=== PATIENT | male | born 1935 | race Caucasian/White ===

== ENCOUNTER → 2017-01-02 | Outpatient (CLI) | payer OTHER, MEDICARE ==
[~2017-01-02] MED LIST: CHOL2000 PO; FERR1TAB62 PO; LEVO50TA6 PO; MULT-506 PO; PRT/20 PO; TYLER650 PO
[2017-01-02 17:20] LABS: BASO % 0.6 %; BASO ABS # 0.04 K/uL (0-0.2); COMPLETE YES; EOS % 7.4 %; HEMATOCRIT 40.9 % (42-52); IG% 0.3 %; LYMPH % 26.3 %; LYMPH ABS # 1.66 K/uL (1.2-3.4); MEAN CELL VOLUME 92.7 fL (80-100); MEAN CORPUSCULAR HGB CONC 34.5 g/dl (32-36); MEAN PLATELET VOLUME 10.9 fL (7.4-10.4); MONO % 10.4 %; PLATELET COUNT 218 K/uL (130-400); RED BLOOD COUNT 4.41 M/uL (4.7-6.1); WHITE BLOOD COUNT 6.32 K/uL (4.8-10.8)
[2017-01-02 17:41] LABS: CALCIUM 8.6 mg/dl (8.5-10.1)
[2017-01-02 17:45] LABS: BLOOD UREA NITROGEN 19 mg/dl (7-18); BUN/CREATININE RATIO 13.6 (10-20); CARBON DIOXIDE 27 mmol/L (21-32); CHLORIDE 106 mmol/L (98-107); GLUCOSE 98 mg/dl (70-99); POTASSIUM 4.2 mmol/L (3.5-5.1); SODIUM 142 mmol/L (136-145)
== END | disposition home or self-care (01) ==
LOC: C.LAB1850 15:26
PROVIDERS: ATTEND Internal Medicine
DX: M47.812 Spondylosis without myelopathy or radiculopathy, cervical region (principal)

== ENCOUNTER 2017-11-17 17:34 | Inpatient (IN) | payer OTHER, MEDICARE ==
[~2017-11-17] VITALS: Ht 182.9 cm; Wt 86.7 kg
[~2017-11-17 17:34] MED LIST changes: +SODIUM BICARBONATE 8.4% INJ 150 MEQ in DEXTROSE 5% 1000ML 1,000 ML IV ONE
--- NOTE | 2017-11-17 18:08 | DIAGNOSTIC IMAGING REPORT ---
CHEST ONE VIEW PORTABLE CLINICAL HISTORY: Weakness COMPARISON STUDY: January 2016 FINDINGS: The heart remains borderline enlarged. There are right lung calcified granulomas. There is a stable eggshell calcification the left paratracheal region. There is chronic lower lobe bronchovascular thickening most pronounced at the left lung base medially.[ There is no overt failure. There are no pleural effusions. IMPRESSION: No change from the preceding study. No acute findings. Electronically signed by: Walter Altamirano M.D. 11/17/2017 6:07 PM Dictated Date/Time: 11/17/2017 6:05 PM
[2017-11-17 18:48] LABS: BASO % 0.2 %; BASO ABS # 0.02 K/uL (0-0.2); EOS % 0.3 %; EOS ABS # 0.03 K/uL (0-0.5); HEMATOCRIT 43.8 % (42-52); HEMOGLOBIN 15.7 g/dL (14.0-18.0); IG# 0.04 K/uL (0.00-0.02); LYMPH % 10.3 %; LYMPH ABS # 1.03 K/uL (1.2-3.4); MEAN CELL VOLUME 90.3 fL (80-100); MEAN CORPUSCULAR HEMOGLOBIN 32.4 pg (25-34); MEAN CORPUSCULAR HGB CONC 35.8 g/dl (32-36); MEAN PLATELET VOLUME 10.6 fL (7.4-10.4); MONO % 10.3 %; MONO ABS # 1.03 K/uL (0.11-0.59); NEUT % 78.5 %; NEUT ABS # 7.89 K/uL (1.4-6.5); PLATELET COUNT 205 K/uL (130-400); RED CELL DISTRIBUTION WIDTH CV 13.2 % (11.5-14.5); RED CELL DISTRIBUTION WIDTH SD 43.2 fL (36.4-46.3); WHITE BLOOD COUNT 10.04 K/uL (4.8-10.8)
--- NOTE | 2017-11-17 18:52 | DIAGNOSTIC IMAGING REPORT ---
CT HEAD WITHOUT CONTRAST (CT) CLINICAL HISTORY: Acute change in mental status WEAKNESS COMPARISON STUDY: 02/11/2010 TECHNIQUE: Axial CT of the brain is performed from the vertex to the skull base. IV contrast was not administered for this examination. A dose lowering technique was utilized adhering to the principles of ALARA. CT DOSE: 1425.10 mGy.cm FINDINGS: No intra or extra-axial mass lesions are visualized. There is no CT evidence of acute cortical infarction. There is no evidence of midline shift. There is no acute hemorrhage. No calvarial fractures are visualized. There are patchy white matter hypodensities likely on a small vessel basis. There is no evidence of pathologic ventricular dilatation. There is no evidence of acute sinusitis IMPRESSION: No acute intracranial findings Electronically signed by: Walter Altamirano M.D. 11/17/2017 6:51 PM Dictated Date/Time: 11/17/2017 6:50 PM
[2017-11-17 19:06] LABS: ALBUMIN 3.8 gm/dl (3.4-5.0); ALT/SGPT 153 U/L (12-78); AST/SGOT 654 U/L (15-37); BLOOD UREA NITROGEN 20 mg/dl (7-18); CALCIUM 9.1 mg/dl (8.5-10.1); CARBON DIOXIDE 27 mmol/L (21-32); CREATININE 1.73 mg/dl (0.60-1.40); GLUCOSE 76 mg/dl (70-99); LIPASE 72 U/L (73-393); SODIUM 144 mmol/L (136-145)
[2017-11-17 19:08] LABS: PTT PATIENT 24.5 SECONDS (21.0-31.0)
[2017-11-17 19:39] LABS: ALKALINE PHOSPHATASE 98 U/L (45-117); CKMB 42.2 ng/ml (0.5-3.6)
[2017-11-17] MEDS ORDERED: SODIUM CHLORIDE 0.9% 1000ML 1,000 ML IV STA (20:00)
[2017-11-17] MEDS ORDERED: SODIUM CHLORIDE 0.9% 500ML 500 ML IV STA (20:00)
[2017-11-17] MEDS ORDERED: CEFTRIAXONE SOD INJ 1 GM ADDVIAL IV STA (20:04)
[2017-11-17] MEDS ORDERED: OMEP20CA9 PO (20:37)
[2017-11-17] MEDS ORDERED: PANTOprazole SOD 40 MG TAB PO PRN (21:15)
[2017-11-17] MEDS ORDERED: ACETAMINOPHEN PO PRN (21:15)
--- NOTE | 2017-11-17 22:41 | History and Physical ---
History & Physical Date & Time of Service: Nov 17, 2017 at 21:36 Chief Complaint: AMS Primary Care Physician: Arron Austin M.D. History of Present Illness Source: patient, family, hospital records 82 y/o M Hx Hypothyroidism, Colon CA 2007, CKD III, GERD. The [place] independent [place] He was visited by family today and it was noted that he was acutely confused and preparing to eat one of his houseplants. He was brought into the hospital therefore. He was afebrile on arrival to the ER. Labs however, were highly abnormal revealing a CK of 60,000 and mild renal impairment above baseline. A UA is equivocal and no additional source of infection is apparent. There is no indication that he had been on the ground for an appreciable period or suffered any muscle injury. He does walk daily and may have been walking more than usual owing to unseasonably warm weather. the pt himself is cooperative but does display some confusion and is unable to reliably contribute to the HPI. 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 Smoking Status: Never Smoker Drug Use: none Marital Status: Housing status: lives alone Occupational Status: retired Immunizations History of Influenza Vaccine: N/A History of Tetanus Vaccine?: Yes History of Pneumococcal: Yes History of Hepatitis B Vaccine: No Allergies Coded Allergies: No Known Allergies (Verified , 02/21/16) Home Medications Scheduled Cholecalciferol (Vitamin D3), 1 CAP PO QAM Ferrous Sulfate (Ferrous Sulfate), 325 MG PO BID Levothyroxine Sodium (Levothyroxine Sodium), 1 TAB PO QAM Multivitamin (Multivitamin), 1 TAB PO QAM Scheduled PRN Acetaminophen (Tylenol Arthitis Ext Rel), 2 TAB PO BID PRN for Pain Omeprazole (Prilosec), 20 MG PO BID PRN for REFLUX Review of Systems Cannot obtain from pt who was found confused by family Physical Exam Vital Signs Date Time Temp Pulse Resp B/P (MAP) Pulse Ox O2 Delivery O2 Flow Rate FiO2 11/17/17 20:07 59 20 160/67 97 Room Air 11/17/17 18:21 61 11/17/17 17:47 94 Room Air 11/17/17 17:42 36.6 66 22 145/79 94 Room Air General Appearance: + pertinent finding (Pleasant, elderly male - mild confusion) Head: normocephalic Eyes: normal inspection ENT: normal ENT inspection, pharynx normal Neck: supple, no JVD Respiratory/Chest: chest non-tender, lungs clear, normal breath sounds Cardiovascular: regular rate, rhythm, no edema, no gallop Abdomen/GI: normal bowel sounds, non tender, soft Back: normal inspection, no CVA tenderness Extremities/Musculoskelatal: normal inspection, no calf tenderness, normal capillary refill Neurologic/Psych: cold header II-XII nml as tested, no motor/sensory deficits, alert, + pertinent finding (Oriented x 1-2) Skin: normal color Diagnostics Laboratory Results Results Past 24 Hours Test 11/17/17 17:42 11/17/17 18:25 11/17/17 18:40 11/17/17 21:31 Range/Units Creatine Kinase MB Ratio 0-3.0 White Blood Count 10.04 4.8-10.8 K/uL Red Blood Count 4.85 4.7-6.1 M/uL Hemoglobin 15.7 14.0-18.0 g/dL Hematocrit 43.8 42-52 % Mean Corpuscular Volume 90.3 80-100 fL Mean Corpuscular Hemoglobin 32.4 25-34 pg Mean Corpuscular Hemoglobin Concent 35.8 32-36 g/dl Platelet Count 205 130-400 K/uL Mean Platelet Volume 10.6 7.4-10.4 fL Neutrophils (%) (Auto) 78.5 % Lymphocytes (%) (Auto) 10.3 % Monocytes (%) (Auto) 10.3 % Eosinophils (%) (Auto) 0.3 % Basophils (%) (Auto) 0.2 % Neutrophils # (Auto) 7.89 1.4-6.5 K/uL Lymphocytes # (Auto) 1.03 1.2-3.4 K/uL Monocytes # (Auto) 1.03 0.11-0.59 K/uL Eosinophils # (Auto) 0.03 0-0.5 K/uL Basophils # (Auto) 0.02 0-0.2 K/uL RDW Standard Deviation 43.2 36.4-46.3 fL RDW Coefficient of Variation 13.2 11.5-14.5 % Immature Granulocyte % (Auto) 0.4 % Immature Granulocyte # (Auto) 0.04 0.00-0.02 K/uL Prothrombin Time 10.6 9.0-12.0 SECONDS Prothromb Time International Ratio 1.0 0.9-1.1 Activated Partial Thromboplast Time 24.5 21.0-31.0 SECONDS Partial Thromboplastin Ratio 0.9 Sodium Level 144 136-145 mmol/L Potassium Level 4.0 3.5-5.1 mmol/L Chloride Level 111 98-107 mmol/L Carbon Dioxide Level 27 21-32 mmol/L Anion Gap 6.0 3-11 mmol/L Blood Urea Nitrogen 20 7-18 mg/dl Creatinine 1.73 0.60-1.40 mg/dl Est Creatinine Clear Calc Drug Dose 34.9 ml/min Estimated GFR () 41.1 Estimated GFR (Non- 35.5 BUN/Creatinine Ratio 11.4 10-20 Random Glucose 76 70-99 mg/dl Calcium Level 9.1 8.5-10.1 mg/dl Magnesium Level 2.2 1.8-2.4 mg/dl Total Bilirubin 1.0 0.2-1 mg/dl Direct Bilirubin 0.2 0-0.2 mg/dl Aspartate Amino Transf (AST/SGOT) 654 15-37 U/L Alanine Aminotransferase (ALT/SGPT) 153 12-78 U/L Alkaline Phosphatase 98 45-117 U/L Total Creatine Kinase 64024 39-308 U/L Creatine Kinase MB 42.2 0.5-3.6 ng/ml Troponin I 0.097 0-0.045 ng/ml Total Protein 7.0 6.4-8.2 gm/dl Albumin 3.8 3.4-5.0 gm/dl Lipase 72 73-393 U/L Thyroid Stimulating Hormone (TSH) 4.970 0.300-4.500 uIu/ml Urine Color DK YELLOW Urine Appearance TURBID CLEAR Urine pH 5.5 4.5-7.5 Urine Specific [place] 1.020 1.000-1.030 Urine Protein 2+ NEG Urine Glucose (UA) NEG NEG Urine Ketones NEG NEG Urine Occult Blood 3+ NEG Urine Nitrite NEG NEG Urine Bilirubin NEG NEG Urine Urobilinogen NEG NEG Urine Leukocyte Esterase SMALL NEG Urine RBC (Auto) 0-4 /hpf Urine Hyaline Casts (Auto) 0-5 /lpf Urine RBC 0-4 0-4 /hpf Urine WBC 1-5 0-5 /hpf Urine Epithelial Cells 0-5 0-5 /lpf Urine Amorphous Sediment PRESENT NONE PRSENT Urine Bacteria 1+ NEG Urine Granular Casts 5-10 0 /lpf Urine Pathogenic Casts 0 /lpf Urine Yeast (Auto) NONE PRSENT Microbiology Results 11/17/17 Urine Culture, Received Pending Normal EKG Impression Assessment and Plan 82 y/o M Hx Hypothyroidism, Colon CA 2007, CKD III, GERD. The [place] is independent [place] He was visited by family today and it was noted that he was acutely confused and preparing to eat one of his houseplants. He was brought into the hospital therefore. He was afebrile on arrival to the ER. Labs however, were highly abnormal revealing a CK of 60,000 and mild renal impairment above baseline. A UA is equivocal and no additional source of infection is apparent. There is no indication that he had been on the ground for an appreciable period or suffered any muscle injury. He does walk daily and may have been walking more than usual owing to unseasonably warm weather. The pt himself is cooperative but does display some confusion and is unable to reliably contribute to the HPI. 1) Rhabdomyolysis - severe - Likely nontraumatic exertional and possibly owing to susceptibility from hypothyroidism - pt is receiving aggressive IVF. Pending additional labs we may opt to alkalinize although the benefit is not entirely clear. Electrolytes and CK will be trended. We will consult nephrology if there is any worsening in his renal function. 2) ARETHA - CKD III - renal impairment is above baseline presently - this may be due to mild dehydration although we cannot rule out an early effect from rhabdo. Again, we would choose to consult nephrology if there is worsening. 3) Borderline UA - no clear evidence of infection - he received Ceftriaxone in the ER - we will await culture results and a repeat UA prior to proceeding with additional dosing. 4) Mild confusion - cause is not clear - may be due to dehydration or UTI if confirmed - not normally associated with rhabdo. Reevaluate AM following IVF. 5) Hypothyroidism - TSH is slightly elevated - dose adjustment can be made if abnormality persists after resolution of acute illness - does not require immediate attention. Full code - Heparin prophylaxis Total time for this admit including review of labs, meds, imaging, records - discussion with pt, family, ER attending - 45 min Resuscitation Status VTE Prophylaxis Will order VTE Prophylaxis: Yes
[2017-11-17] MEDS ORDERED: ONDANSETRON INJ 2 MG/ML 2 ML VIAL IV PRN (22:45)
[2017-11-17] MEDS ORDERED: ACETAMINOPHEN 325 MG TAB PO PRN (22:45)
[2017-11-17] MEDS ORDERED: ALUMINUM/MAGNESIUM/SIMETH (MAALOX MAX) 30 ML UDC PO PRN (22:45)
[2017-11-17] MEDS ORDERED: MAGNESIUM HYDROXIDE SUSP 30 ML UDC PO PRN (22:45)
--- NOTE | 2017-11-17 23:04 | EMERGENCY ROOM VISIT NOTE ---
History Report prepared by Betzy: Ofelia Ferrell Under the Supervision of: Dr. Panfilo Sexton M.D. First contact with patient: 17:41 Chief Complaint: ALTERED MENTAL STATUS Stated Complaint: AMS Nursing Triage Summary: Pt arrived to room C12A via ambulance from [facility]. Pt lives alone and was found by home nurse attempting to eat a plant with a fork and was seeing mice running around in the bathroom. 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 Pt also incontinent of bladder. Per EMS , pt usually walks around town, but has had increased weakness and could barely get on the stretcher. BSG 79. At baseline, pt alert and oriented x4. History of Present Illness The patient is a 82 year old male who presents to the Emergency Room with complaints of an episode of altered mental status occurring this afternoon. Per nursing note, the patient was found by home nursing staff confused and altered. Per nursing note, the patient was trying to eat a plant and said he was seeing mice run around his house. Per daughter, the last time she saw the patient was and she reports he was at his baseline then. She reports the patient is very independent at baseline. The patient lives alone. Per daughter, the patient has not been recently ill or complaining of any pain over the past couple days. The patient states he feels more fatigued and weak than his baseline. He reports he feels dizzy when he moves. The patient denies any recent falls. He denies any abdominal pain. Daughter denies any recent pneumonia , vertigo, or UTIs of the patient. When EMS arrived, the patient he was incontinent of urine which is not normal for him. The patient has a history of colon cancer with resection. History limited secondary to AMS. Source of History: patient History Limited By: AMS Onset: this afternoon Position: other (generalized) Quality: other (episode) Timing: other (episode) Associated Symptoms: + fatigue, + numbness, No abdominal pain Review of Systems ROS limited secondary to AMS. Past Medical & Surgical Medical Problems: (1) Colon cancer (2) Diaphragmatic hernia (3) Esophagitis, unspecified (4) Osteoporosis, unspecified (5) Rhabdomyolysis Family History Cancer Social History Smoking Status: Never Smoker Alcohol Use: occasionally Drug Use: none Marital Status: Housing Status: lives alone Occupation Status: retired Current/Historical Medications Scheduled Cholecalciferol (Vitamin D3), 1 CAP PO QAM Ferrous Sulfate (Ferrous Sulfate), 325 MG PO BID Levothyroxine Sodium (Levothyroxine Sodium), 1 TAB PO QAM Multivitamin (Multivitamin), 1 TAB PO QAM Scheduled PRN Acetaminophen (Tylenol Arthitis Ext Rel), 2 TAB PO BID PRN for Pain Omeprazole (Prilosec), 20 MG PO BID PRN for REFLUX Allergies Coded Allergies: No Known Allergies (Verified , 02/21/16) Physical Exam Vital Signs Date Time Temp Pulse Resp B/P (MAP) Pulse Ox O2 Delivery O2 Flow Rate FiO2 11/17/17 22:47 78 20 171/77 96 Room Air 11/17/17 22:22 56 11/17/17 21:06 37.7 61 20 132/65 99 Room Air 11/17/17 20:07 59 20 160/67 97 Room Air 11/17/17 18:21 61 11/17/17 17:47 94 Room Air 11/17/17 17:42 36.6 66 22 145/79 94 Room Air Physical Exam GENERAL: Awake, alert, well-appearing, in no distress HENT: Normocephalic, atraumatic. Oropharynx unremarkable. EYES: Normal conjunctiva. Sclera non-icteric. NECK: Supple. No nuchal rigidity. FROM. No masses. RESPIRATORY: Clear to auscultation. No wheezes. No rales. Normal respiratory effort. CARDIAC: Normal rate. Normal rhythm. No murmurs. No rubs. Extremities warm and well perfused. Pulses equal. No JVD. GI: Soft, non-distended. No tenderness to palpation. No rebound or guarding. No masses. RECTAL: Deferred. MUSCULOSKELETAL: Atraumatic. Chest examination reveals no tenderness. The back is symmetrical on inspection without obvious abnormality. There is no CVA tenderness to palpation. No joint edema. LOWER EXTREMITIES: Calves are equal size bilaterally and non-tender. No edema. No discoloration. NEURO: Normal sensorium. Generally weak, no drift, speech not slurred but soft. No sensory or motor deficits noted. SKIN: No rash or jaundice noted. Medical Decision & Procedures ER Provider Diagnostic Interpretation: Radiology results as stated below per my review and radiologist interpretation: CHEST ONE VIEW PORTABLE FINDINGS: The heart remains borderline enlarged. There are right lung calcified granulomas. There is a stable eggshell calcification the left paratracheal region. There is chronic lower lobe bronchovascular thickening most pronounced at the left lung base medially.[ There is no overt failure. There are no pleural effusions. IMPRESSION: No change from the preceding study. No acute findings. Electronically signed by: Walter Altamirano M.D. CT HEAD WITHOUT CONTRAST (CT) FINDINGS: No intra or extra-axial mass lesions are visualized. There is no CT evidence of acute cortical infarction. There is no evidence of midline shift. There is no acute hemorrhage. No calvarial fractures are visualized. There are patchy white matter hypodensities likely on a small vessel basis. There is no evidence of pathologic ventricular dilatation. There is no evidence of acute sinusitis IMPRESSION: No acute intracranial findings Electronically signed by: Walter Altamirano M.D. Laboratory Results 11/17/17 18:25 Red Blood Count 4.85, Mean Corpuscular Volume 90.3, Mean Corpuscular Hemoglobin 32.4, Mean Corpuscular Hemoglobin Concent 35.8, Mean Platelet Volume 10.6, Neutrophils (%) (Auto) 78.5, Lymphocytes (%) (Auto) 10.3, Monocytes (%) (Auto) 10.3, Eosinophils (%) (Auto) 0.3, Basophils (%) (Auto) 0.2, Neutrophils # (Auto ) 7.89, Lymphocytes # (Auto) 1.03, Monocytes # (Auto) 1.03, Eosinophils # (Auto ) 0.03, Basophils # (Auto) 0.02 Test 11/17/17 17:42 11/17/17 18:25 11/17/17 18:40 11/17/17 22:42 Creatine Kinase MB Ratio (0-3.0) White Blood Count 10.04 K/uL (4.8-10.8) Red Blood Count 4.85 M/uL (4.7-6.1) Hemoglobin 15.7 g/dL (14.0-18.0) Hematocrit 43.8 % (42-52) Mean Corpuscular Volume 90.3 fL (80-100) Mean Corpuscular Hemoglobin 32.4 pg (25-34) Mean Corpuscular Hemoglobin Concent 35.8 g/dl (32-36) Platelet Count 205 K/uL (130-400) Mean Platelet Volume 10.6 fL (7.4-10.4) Neutrophils (%) (Auto) 78.5 % Lymphocytes (%) (Auto) 10.3 % Monocytes (%) (Auto) 10.3 % Eosinophils (%) (Auto) 0.3 % Basophils (%) (Auto) 0.2 % Neutrophils # (Auto) 7.89 K/uL (1.4-6.5) Lymphocytes # (Auto) 1.03 K/uL (1.2-3.4) Monocytes # (Auto) 1.03 K/uL (0.11-0.59) Eosinophils # (Auto) 0.03 K/uL (0-0.5) Basophils # (Auto) 0.02 K/uL (0-0.2) RDW Standard Deviation 43.2 fL (36.4-46.3) RDW Coefficient of Variation 13.2 % (11.5-14.5) Immature Granulocyte % (Auto) 0.4 % Immature Granulocyte # (Auto) 0.04 K/uL (0.00-0.02) Prothrombin Time 10.6 SECONDS (9.0-12.0) Prothromb Time International Ratio 1.0 (0.9-1.1) Activated Partial Thromboplast Time 24.5 SECONDS (21.0-31.0) Partial Thromboplastin Ratio 0.9 Est Creatinine Clear Calc Drug Dose 34.9 ml/min Total Bilirubin 1.0 mg/dl (0.2-1) Direct Bilirubin 0.2 mg/dl (0-0.2) Aspartate Amino Transf (AST/SGOT) 654 U/L (15-37) Alanine Aminotransferase (ALT/SGPT) 153 U/L (12-78) Alkaline Phosphatase 98 U/L (45-117) Creatine Kinase MB 42.2 ng/ml (0.5-3.6) Troponin I 0.097 ng/ml (0-0.045) Total Protein 7.0 gm/dl (6.4-8.2) Albumin 3.8 gm/dl (3.4-5.0) Lipase 72 U/L (73-393) Thyroid Stimulating Hormone (TSH) 4.970 uIu/ml (0.300-4.500) Urine Color DK YELLOW Urine Appearance TURBID (CLEAR) Urine pH 5.5 (4.5-7.5) Urine Specific [place] 1.020 (1.000-1.030) Urine Protein 2+ (NEG) Urine Glucose (UA) NEG (NEG) Urine Ketones NEG (NEG) Urine Occult Blood 3+ (NEG) Urine Nitrite NEG (NEG) Urine Bilirubin NEG (NEG) Urine Urobilinogen NEG (NEG) Urine Leukocyte Esterase SMALL (NEG) Urine RBC (Auto) /hpf (0-4) Urine Hyaline Casts (Auto) /lpf (0-5) Urine RBC 0-4 /hpf (0-4) Urine WBC 1-5 /hpf (0-5) Urine Epithelial Cells 0-5 /lpf (0-5) Urine Amorphous Sediment PRESENT (NONE PRSENT) Urine Bacteria 1+ (NEG) Urine Granular Casts 5-10 /lpf (0) Urine Pathogenic Casts /lpf (0) Urine Yeast (Auto) (NONE PRSENT) Test 11/17/17 22:43 Laboratory results reviewed by me Medications Administered Medications (Trade) Dose Ordered Sig/Diana Route Start Time Stop Time Status Last Admin Dose Admin Sodium Chloride 500 ml @ 999 mls/hr Q31M STAT IV 11/17/17 20:00 11/17/17 20:30 DC 11/17/17 20:00 999 MLS/HR Sodium Chloride 1,000 ml @ 125 mls/hr Q8H STAT IV 11/17/17 20:00 11/18/17 03:59 11/17/17 20:00 125 MLS/HR Ceftriaxone Sodium (Rocephin Inj) 1 gm NOW STAT IV 11/17/17 20:04 11/17/17 20:05 DC 11/17/17 20:04 1 GM ECG Per My Interpretation Indication: altered mental status Rate (beats per minute): 60 Rhythm: normal sinus Findings: no ectopy, other (lateral T- wave flattening, prolonged QT ) Comparison ECG Date: 02/21/16 Change: Lateral changes are more pronounced. ED Course 1800: The patient was evaluated in room C12A. A complete history and physical exam was performed. 2000: Ordered Sodium Chloride 1000 ml @ 125 mls/hr IV, Sodium Chloride 500 ml @ 999 mls/hr IV. 2001: Discussed the patient's case Dr. Moy. The patient will be evaluated for further treatment and disposition. 2004: Ordered Rocephin Inj 1 gm IV. 2007: I updated the patient and family on his test results. They are agreeable to the treatment plan. Medical Decision Prior records/ancillary studies reviewed and summarized above. Nursing notes reviewed and agree them. Additional history obtained from family. The patient's history was concerning for altered mental status. Differential diagnosis: Etiologies such as infection, hypoglycemia, electrolyte abnormalities, cardiac sources, intracerebral event, toxicologic, neurologic, as well as others were entertained. Physical examination: As above. The patient's GCS was 15. His mental status was relatively normal although there was some confusion. He does not recall some of the events from earlier which limits the accuracy of the history and review. His examination is currently nonfocal. ER treatment provided: IV Lock Normal saline hydration IV Rocephin On reassessment the patient felt better. Diagnostics interpretation by me: ECG: Mild changes as above. The labs revealed an unremarkable CBC. Urinalysis concerning for some infection. LFTs elevated. Total CK markedly elevated consistent with rhabdomyolysis. Minor elevation of creatinine. Troponin mildly elevated. Imaging studies: CT scan and x-ray as above. Consultation: A consultation was placed with the hospitalist. The case was discussed and diagnostics were reviewed. The patient was evaluated in the ER for further treatment. Medication Reconcilliation Current Medication List: was personally reviewed by me Blood Pressure Screening Patient's blood pressure: Elevated blood pressure Blood pressure disposition: Referred to PCP (referred to hospitalist) Consults Time Called: 2000 Consulting Physician: Dr. Echols Returned Call: 2000 Discussed the patient's case Dr. Echols. The patient will be evaluated for further treatment and disposition. Impression Primary Impression: Altered mental status Additional Impressions: Elevated troponin UTI (urinary tract infection) Rhabdomyolysis Elevated LFTs Scribe Attestation The scribe's documentation has been prepared under my direction and personally reviewed by me in its entirety. I confirm that the note above accurately reflects all work, treatment, procedures, and medical decision making performed by me. Departure Information Dispostion Being Evaluated By Hospitalist Referrals Arron Austin M.D. (PCP) Patient Instructions My [facility] Problem Qualifiers
[2017-11-17 23:12] LABS: CALCIUM 8.2 mg/dl (8.5-10.1); CREATININE 1.61 mg/dl (0.60-1.40); POTASSIUM 3.8 mmol/L (3.5-5.1)
[2017-11-17 23:41] LABS: PHOSPHORUS 3.2 mg/dl (2.5-4.9)
[2017-11-18 00:13] VITALS: BP 152/78; PULSE 58; TEMP 36.7; O2SAT 95; Ht 182.9 cm; Wt 86.7 kg
[2017-11-18 04:42] LABS: CALCIUM 8.5 mg/dl (8.5-10.1); CREATININE 1.7 mg/dl (0.60-1.40); POTASSIUM 3.6 mmol/L (3.5-5.1)
[2017-11-18 05:08] LABS: PHOSPHORUS 3.1 mg/dl (2.5-4.9)
[2017-11-18] MEDS: HEPARIN SOD 5000 UNIT/0.5 ML CARP SQ SCH ×3 (05:27→20:04)
[2017-11-18] MEDS: LEVOTHYROXINE 50 MCG TAB PO SCH (05:28)
[2017-11-18 07:23] VITALS: BP 148/75; PULSE 59; TEMP 36.6; O2SAT 93
[2017-11-18] MEDS: SODIUM CHLORIDE 0.9% 1000ML 1,000 ML IV SCH ×4 (07:30→20:05)
[2017-11-18] MEDS ORDERED: NURSING VERBAL MED ORDER ONE (10:30)
[2017-11-18 13:00] LABS: CALCIUM 8.3 mg/dl (8.5-10.1); CREATININE 1.74 mg/dl (0.60-1.40); POTASSIUM 3.6 mmol/L (3.5-5.1)
[2017-11-18 13:01] LABS: PHOSPHORUS 2.7 mg/dl (2.5-4.9)
--- NOTE | 2017-11-18 13:04 | Hospitalist Progress Note ---
Hospitalist Progress Note Date of Service Nov 18, 2017. Subjective Pt evaluation today including: conversation w/ patient, physical exam, lab review, review of studies, review of inpatient medication list Voiding: no voiding problems Patient sitting in bedside. Feeling well. Alert/oriented x3. States he was brought to the ED because he was confused. Denies any recent falls, injuries, increase in activity. Does walk around 3 miles most days- doing for years now. 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 Eating and drinking OK. Denies urinary issues- urine dark brown in color. Patient denies any fever, chills, sweats, lightheadedness, dizziness, vision changes, CP, palpitations, edema, SOB, wheezing, cough, abdominal pain, nausea, vomiting, diarrhea, urinary symptoms, melena, numbness/tingling, weakness, muscle/joint pain, anxiety/depression, active bleeding, or new skin discoloration/changes. Medications Current Inpatient Medications Medications (Trade) Dose Ordered Sig/Diana Route Start Time Stop Time Status Last Admin Dose Admin Sodium Chloride 1,000 ml @ 200 mls/hr Q5H IV 11/18/17 05:00 11/18/17 22:29 11/18/17 12:37 200 MLS/HR Levothyroxine Sodium (Synthroid Tab) 50 mcg DAILYBB PO 11/18/17 06:30 12/18/17 06:29 11/18/17 05:28 50 MCG Pantoprazole Sodium (Protonix Tab) 40 mg BID PRN PO 11/17/17 21:15 12/17/17 21:14 Heparin Sodium (Porcine) (Heparin Sq 5000 Unit/0.5ml) 5,000 unit Q8H SQ 11/18/17 06:00 12/18/17 05:59 11/18/17 05:27 5,000 UNIT Acetaminophen (Tylenol Tab) 650 mg Q4H PRN PO 11/17/17 22:45 12/17/17 22:44 Al Hydrox/Mg Hydrox/Simethicone (Maalox Max Susp) 15 ml Q4H PRN PO 11/17/17 22:45 12/17/17 22:44 Magnesium Hydroxide (Milk Of Magnesia Susp) 30 ml Q6H PRN PO 4/24/18 22:45 12/17/17 22:44 Ondansetron HCl (Zofran Inj) 4 mg Q6H PRN IV 11/17/17 22:45 12/17/17 22:44 Objective Vital Signs Date Time Temp Pulse Resp B/P (MAP) Pulse Ox O2 Delivery O2 Flow Rate FiO2 11/18/17 07:25 Room Air 11/18/17 07:23 36.6 59 20 148/75 (99) 93 Room Air 11/18/17 00:13 36.7 58 20 152/78 (102) 95 Room Air 11/18/17 00:13 36.7 58 20 152/78 95 Room Air 11/18/17 00:00 Room Air 11/17/17 23:50 64 18 154/74 98 11/17/17 22:47 78 20 171/77 96 Room Air 11/17/17 22:22 56 11/17/17 21:06 37.7 61 20 132/65 99 Room Air 11/17/17 20:07 59 20 160/67 97 Room Air 11/17/17 18:21 61 11/17/17 17:47 94 Room Air 11/17/17 17:42 36.6 66 22 145/79 94 Room Air Physical Exam General Appearance: no apparent distress Eyes: normal inspection, PERRL ENT: hearing grossly normal Neck: supple Respiratory/Chest: lungs clear, no respiratory distress, no accessory muscle use Cardiovascular: regular rate, rhythm Abdomen: normal bowel sounds, non tender, soft Extremities: no pedal edema, no calf tenderness Neurologic/Psychiatric: no motor/sensory deficits, alert, normal mood/affect, oriented x 3 Skin: normal color, warm/dry, no rash Laboratory Results Last 24 Hours Test 11/17/17 17:42 11/17/17 18:25 11/17/17 18:40 11/17/17 22:42 Creatine Kinase MB Ratio White Blood Count 10.04 K/uL Red Blood Count 4.85 M/uL Hemoglobin 15.7 g/dL Hematocrit 43.8 % Mean Corpuscular Volume 90.3 fL Mean Corpuscular Hemoglobin 32.4 pg Mean Corpuscular Hemoglobin Concent 35.8 g/dl Platelet Count 205 K/uL Mean Platelet Volume 10.6 fL Neutrophils (%) (Auto) 78.5 % Lymphocytes (%) (Auto) 10.3 % Monocytes (%) (Auto) 10.3 % Eosinophils (%) (Auto) 0.3 % Basophils (%) (Auto) 0.2 % Neutrophils # (Auto) 7.89 K/uL Lymphocytes # (Auto) 1.03 K/uL Monocytes # (Auto) 1.03 K/uL Eosinophils # (Auto) 0.03 K/uL Basophils # (Auto) 0.02 K/uL RDW Standard Deviation 43.2 fL RDW Coefficient of Variation 13.2 % Immature Granulocyte % (Auto) 0.4 % Immature Granulocyte # (Auto) 0.04 K/uL Prothrombin Time 10.6 SECONDS Prothromb Time International Ratio 1.0 Activated Partial Thromboplast Time 24.5 SECONDS Partial Thromboplastin Ratio 0.9 Sodium Level 144 mmol/L 144 mmol/L Potassium Level 4.0 mmol/L 3.8 mmol/L Chloride Level 111 mmol/L 114 mmol/L Carbon Dioxide Level 27 mmol/L 25 mmol/L Anion Gap 6.0 mmol/L 5.0 mmol/L Blood Urea Nitrogen 20 mg/dl 22 mg/dl Creatinine 1.73 mg/dl 1.61 mg/dl Est Creatinine Clear Calc Drug Dose 34.9 ml/min 37.5 ml/min Estimated GFR () 41.1 44.8 Estimated GFR (Non- 35.5 38.7 BUN/Creatinine Ratio 11.4 13.5 Random Glucose 76 mg/dl 70 mg/dl Calcium Level 9.1 mg/dl 8.2 mg/dl Magnesium Level 2.2 mg/dl 1.9 mg/dl Total Bilirubin 1.0 mg/dl Direct Bilirubin 0.2 mg/dl Aspartate Amino Transf (AST/SGOT) 654 U/L Alanine Aminotransferase (ALT/SGPT) 153 U/L Alkaline Phosphatase 98 U/L Total Creatine Kinase 84717 U/L 79589 U/L Creatine Kinase MB 42.2 ng/ml Troponin I 0.097 ng/ml Total Protein 7.0 gm/dl Albumin 3.8 gm/dl Lipase 72 U/L Thyroid Stimulating Hormone (TSH) 4.970 uIu/ml Urine Color DK YELLOW Urine Appearance TURBID Urine pH 5.5 Urine Specific [place] 1.020 Urine Protein 2+ Urine Glucose (UA) NEG Urine Ketones NEG Urine Occult Blood 3+ Urine Nitrite NEG Urine Bilirubin NEG Urine Urobilinogen NEG Urine Leukocyte Esterase SMALL Urine RBC (Auto) /hpf Urine Hyaline Casts (Auto) /lpf Urine RBC 0-4 /hpf Urine WBC 1-5 /hpf Urine Epithelial Cells 0-5 /lpf Urine Amorphous Sediment PRESENT Urine Bacteria 1+ Urine Granular Casts 5-10 /lpf Urine Pathogenic Casts /lpf Urine Yeast (Auto) Phosphorus Level 3.2 mg/dl Test 11/17/17 22:43 11/18/17 02:40 11/18/17 03:57 11/18/17 06:11 Arterial Blood pH 7.49 7.49 Arterial Blood Partial Pressure CO2 29 mmHg 37 mmHg Arterial Blood Partial Pressure O2 69 mm/Hg 61 mm/Hg Arterial Blood HCO3 21 mmol/L 27 mmol/L Arterial Blood Oxygen Saturation 94.2 % 91.4 % Arterial Blood Base Excess -0.9 mEq/L 3.9 mEq/L Arterial Blood Gas Delivery ROOM AIR RA Dave Test POS POS Urine Color DK YELLOW Urine Appearance CLOUDY Urine pH 5.5 Urine Specific [place] 1.019 Urine Protein 2+ Urine Glucose (UA) NEG Urine Ketones NEG Urine Occult Blood 3+ Urine Nitrite NEG Urine Bilirubin NEG Urine Urobilinogen NEG Urine Leukocyte Esterase TRACE Urine WBC (Auto) 1-5 /hpf Urine RBC (Auto) 0-4 /hpf Urine Hyaline Casts (Auto) 1-5 /lpf Urine Epithelial Cells (Auto) 5-10 /lpf Urine Bacteria (Auto) NEG Urine Yeast (Auto) Sodium Level 144 mmol/L Potassium Level 3.6 mmol/L Chloride Level 111 mmol/L Carbon Dioxide Level 29 mmol/L Anion Gap 4.0 mmol/L Blood Urea Nitrogen 24 mg/dl Creatinine 1.70 mg/dl Est Creatinine Clear Calc Drug Dose 35.5 ml/min Estimated GFR () 42.0 Estimated GFR (Non- 36.2 BUN/Creatinine Ratio 13.9 Random Glucose 85 mg/dl Calcium Level 8.5 mg/dl Phosphorus Level 3.1 mg/dl Magnesium Level 2.1 mg/dl Total Creatine Kinase 31898 U/L Test 11/18/17 09:15 11/18/17 12:20 Troponin I 0.089 ng/ml Assessment and Plan 82 y/o M Hx Hypothyroidism, Colon CA 2007, CKD III, GERD. The pt is independent and resides by himself in the [facility] area. He was visited by family today and it was noted that he was acutely confused and preparing to eat one of his houseplants. He was brought into the hospital therefore. He was afebrile on arrival to the ER. Labs however, were highly abnormal revealing a CK of 60,000 and mild renal impairment above baseline. A UA is equivocal and no additional source of infection is apparent. There is no indication that he had been on the ground for an appreciable period or suffered any muscle injury. He does walk daily and may have been walking more than usual owing to unseasonably warm weather. The pt himself is cooperative but does display some confusion and is unable to reliably contribute to the HPI. Rhabdomyolysis- etiology unknown: - Admitted to med/surg - Cardiac enzymes- troponin peaked at 0.09 - Aggressive IV NSS @ 200 ml/hr x3 bags, then IV NSS @ 100 ml/hr - Treated w/ 150 mEq sodium bicarbonate - Follow CRP- 60,000 on admission- trending down, now at 44,000 ARETHA on CKD stage III- follows w/ Dr. Austin- baseline plate sensitizer 1.4: - Follow PRP- plate sensitizer currently 1.74 - IVF as above - UA abnormal- UCx w/ mixed growth, repeat recommended- will repeat UCx; did receive IV Rocephin x1 dose on 11/17- will hold on further abx at this time - Avoid nephrotoxic agents and renally dose as appropriate - Consider nephrology consultation if plate sensitizer worsening Mild confusion, ?secondary to dehydration vs infection vs ?underlying cognitive dysfunction- RESOLVED: - Head CT negative for acute findings - No clear s/s of infection- repeating UCx, CXR w/out acute findings - Supportive measures, continue to monitor Hypothyroidism- TSH 4.97: - Continue Synthroid 50 mcg daily - f/u w/ PCP- recommend repeat in 4-6 weeks h/o colon cancer- noted GERD: Protonix while inpatient- resume Prilosec at discharge DVT prophylaxis: Heparin SQ TID Code status: LEVEL I, FULL Dispo: From home, lives alone- PT/OT and CM consulted
[2017-11-18 15:00] VITALS: BP 126/72; PULSE 64; TEMP 37; O2SAT 95
[2017-11-18 16:09] VITALS: O2SAT 95
[2017-11-18 23:07] VITALS: BP 145/71; PULSE 65; TEMP 36.8; O2SAT 95
[2017-11-19] MEDS: LEVOTHYROXINE 50 MCG TAB PO SCH (05:59)
[2017-11-19] MEDS: HEPARIN SOD 5000 UNIT/0.5 ML CARP SQ SCH ×3 (06:00→21:03)
--- NOTE | 2017-11-19 06:04 | Clinical Documentation Query ---
CLINICAL DOCUMENTATION QUERY 82 year old male who presents to the Emergency Room with complaints of an episode of altered mental status In your clinical opinion is this patient being managed for: ( X ) Metabolic encephalopathy treated and resolved due to alkalosis, dehydration, rhabdomyolysis ( ) Not Agree ( ) Other explanation of clinical findings (Please Explain. If no explanation given, this would be considered a no response.) ( ) Unable to determine ( ) Need to Discuss (Please call CDS via extension or qliq. If no interaction occurs this is considered a no response.) The medical record reflects the following clinical findings, treatment, and risk factors. Clinical Indicators: AMS, per [facility] at [facility] patient was found confused and altered. Per nursing note, the patient was trying to eat a plant and said he was seeing mice run around his house. Respiratory alkalosis-ABG 7.49/29/69/21, +Troponin's 0.097, 0.089, [place] [address], BUN 20. Creatinine 1.73, GFR 35.5. Treatment: Head CT, IVF's, IV Bicarb gtt, Risk Factors: Age, dehydration, rhabdomyolysis, alkalosis Please clarify and document your clinical opinion in the progress notes and discharge summary. Terms such as "probable", "suspected", "likely", "questionable", "possible", or "still to be ruled out" are acceptable. IF IN AGREEMENT, YOU MUST DOCUMENT ABOVE DIAGNOSTIC STATEMENT IN DAILY PROGRESS NOTES AND DISCHARGE SUMMARY. This document is not part of the patient's record. Thank You, Ronnell Camp RN [phone]
--- NOTE | 2017-11-19 06:05 | Clinical Documentation Query ---
CLINICAL DOCUMENTATION QUERY 82 year old male who presents to the Emergency Room with complaints of an episode of altered mental status In your clinical opinion is this patient being managed for: ( x ) possible Metabolic encephalopathy treated and resolved due to alkalosis, dehydration, rhabdomyolysis, and possible not infection. ( ) Not Agree ( ) Other explanation of clinical findings (Please Explain. If no explanation given, this would be considered a no response.) ( ) Unable to determine ( ) Need to Discuss (Please call CDS via extension or qliq. If no interaction occurs this is considered a no response.) The medical record reflects the following clinical findings, treatment, and risk factors. Clinical Indicators: AMS, per nursing at [facility] patient was found confused and altered. Per nursing note, the patient was trying to eat a plant and said he was seeing mice run around his house. Respiratory alkalosis-ABG 7.49/29/69/21, +Troponin's 0.097, 0.089, [place] [address], BUN 20. Creatinine 1.73, GFR 35.5. Treatment: Head CT, IVF's, IV Bicarb gtt, Risk Factors: Age, dehydration, rhabdomyolysis, alkalosis Please clarify and document your clinical opinion in the progress notes and discharge summary. Terms such as "probable", "suspected", "likely", "questionable", "possible", or "still to be ruled out" are acceptable. IF IN AGREEMENT, YOU MUST DOCUMENT ABOVE DIAGNOSTIC STATEMENT IN DAILY PROGRESS NOTES AND DISCHARGE SUMMARY. This document is not part of the patient's record. Thank You, Ronnell Camp, RN [phone]
[2017-11-19 07:28] VITALS: BP 130/75; PULSE 60; TEMP 36.6; O2SAT 93
[2017-11-19 07:47] LABS: BASO % 0.3 %; BASO ABS # 0.02 K/uL (0-0.2); EOS % 6.1 %; EOS ABS # 0.38 K/uL (0-0.5); HEMATOCRIT 37.8 % (42-52); HEMOGLOBIN 12.8 g/dL (14.0-18.0); IG# 0.02 K/uL (0.00-0.02); LYMPH % 16.9 %; LYMPH ABS # 1.06 K/uL (1.2-3.4); MEAN CELL VOLUME 91.5 fL (80-100); MEAN CORPUSCULAR HGB CONC 33.9 g/dl (32-36); MEAN PLATELET VOLUME 10.3 fL (7.4-10.4); MONO ABS # 0.88 K/uL (0.11-0.59); NEUT % 62.4 %; NEUT ABS # 3.91 K/uL (1.4-6.5); PLATELET COUNT 152 K/uL (130-400); RED CELL DISTRIBUTION WIDTH CV 13.2 % (11.5-14.5); RED CELL DISTRIBUTION WIDTH SD 43.9 fL (36.4-46.3); WHITE BLOOD COUNT 6.27 K/uL (4.8-10.8)
[2017-11-19 07:59] LABS: CREATININE 1.56 mg/dl (0.60-1.40); POTASSIUM 3.5 mmol/L (3.5-5.1)
[2017-11-19] MEDS: SODIUM CHLORIDE 0.9% 1000ML 1,000 ML IV SCH ×2 (08:00→16:30)
[2017-11-19 08:01] LABS: PHOSPHORUS 2.8 mg/dl (2.5-4.9)
[2017-11-19 08:08] LABS: CKMB 5.9 ng/ml (0.5-3.6)
--- NOTE | 2017-11-19 12:12 | Hospitalist Progress Note ---
Hospitalist Progress Note Date of Service Nov 19, 2017. Subjective Pt evaluation today including: conversation w/ patient, physical exam, lab review, review of inpatient medication list Voiding: no voiding problems Patient sitting up in bed. Eating and drinking OK. Alert/oriented x3. States he now remembers falling on Thursday and laying on the ground for sometime until help came. Denies LOC, syncope, lightheadedness, dizziness. Admits to feeling unwell since Thursday. Lost his balance and fell, landing on L elbow. +weakness and fatigue- admits he thinks he'll need rehab at discharge. Patient denies any fever, chills, sweats, lightheadedness, dizziness, vision changes, CP, palpitations, edema, SOB, wheezing, cough, abdominal pain, nausea, vomiting, diarrhea, urinary symptoms, melena, numbness/tingling, muscle/joint pain, anxiety/depression, active bleeding, or new skin discoloration/changes. Medications Current Inpatient Medications Medications (Trade) Dose Ordered Sig/Diana Route Start Time Stop Time Status Last Admin Dose Admin Levothyroxine Sodium (Synthroid Tab) 50 mcg DAILYBB PO 11/18/17 06:30 12/18/17 06:29 11/19/17 05:59 50 MCG Pantoprazole Sodium (Protonix Tab) 40 mg BID PRN PO 11/17/17 21:15 12/17/17 21:14 Heparin Sodium (Porcine) (Heparin Sq 5000 Unit/0.5ml) 5,000 unit Q8H SQ 11/18/17 06:00 12/18/17 05:59 11/19/17 06:00 5,000 UNIT Acetaminophen (Tylenol Tab) 650 mg Q4H PRN PO 11/17/17 22:45 12/17/17 22:44 Al Hydrox/Mg Hydrox/Simethicone (Maalox Max Susp) 15 ml Q4H PRN PO 11/17/17 22:45 12/17/17 22:44 Magnesium Hydroxide (Milk Of Magnesia Susp) 30 ml Q6H PRN PO 11/17/17 22:45 12/17/17 22:44 Ondansetron HCl (Zofran Inj) 4 mg Q6H PRN IV 11/17/17 22:45 12/17/17 22:44 Sodium Chloride 1,000 ml @ 100 mls/hr Q10H IV 11/18/17 20:30 12/18/17 20:29 11/18/17 20:05 100 MLS/HR Objective Vital Signs Date Time Temp Pulse Resp B/P (MAP) Pulse Ox O2 Delivery O2 Flow Rate FiO2 11/19/17 08:00 Room Air 11/19/17 07:28 36.6 60 18 130/75 (93) 93 Room Air 11/19/17 00:00 Room Air 11/18/17 23:07 36.8 65 18 145/71 (95) 95 Room Air 11/18/17 16:09 95 Room Air 11/18/17 15:00 37.0 64 18 126/72 (90) 95 Room Air Physical Exam General Appearance: no apparent distress Eyes: normal inspection, PERRL ENT: hearing grossly normal Neck: supple Respiratory/Chest: lungs clear, no respiratory distress, no accessory muscle use Cardiovascular: regular rate, rhythm Abdomen: normal bowel sounds, non tender, soft Extremities: no pedal edema, no calf tenderness, + pertinent finding (L elbow w / intact skin abrasions/bruising ) Neurologic/Psychiatric: alert, normal mood/affect, oriented x 3 Skin: normal color, warm/dry, no rash Laboratory Results Last 24 Hours Test 11/18/17 12:20 11/18/17 15:44 11/18/17 23:06 11/19/17 07:19 Sodium Level 142 mmol/L Potassium Level 3.6 mmol/L Chloride Level 109 mmol/L Carbon Dioxide Level 30 mmol/L Anion Gap 3.0 mmol/L Blood Urea Nitrogen 23 mg/dl Creatinine 1.74 mg/dl Est Creatinine Clear Calc Drug Dose 34.7 ml/min Estimated GFR () 40.8 Estimated GFR (Non- 35.2 BUN/Creatinine Ratio 13.4 Random Glucose 113 mg/dl Calcium Level 8.3 mg/dl Phosphorus Level 2.7 mg/dl Magnesium Level 1.9 mg/dl 1.9 mg/dl Total Creatine Kinase 98273 U/L 61983 U/L Creatine Kinase MB Ratio Test 11/19/17 07:22 White Blood Count 6.27 K/uL Red Blood Count 4.13 M/uL Hemoglobin 12.8 g/dL Hematocrit 37.8 % Mean Corpuscular Volume 91.5 fL Mean Corpuscular Hemoglobin 31.0 pg Mean Corpuscular Hemoglobin Concent 33.9 g/dl Platelet Count 152 K/uL Mean Platelet Volume 10.3 fL Neutrophils (%) (Auto) 62.4 % Lymphocytes (%) (Auto) 16.9 % Monocytes (%) (Auto) 14.0 % Eosinophils (%) (Auto) 6.1 % Basophils (%) (Auto) 0.3 % Neutrophils # (Auto) 3.91 K/uL Lymphocytes # (Auto) 1.06 K/uL Monocytes # (Auto) 0.88 K/uL Eosinophils # (Auto) 0.38 K/uL Basophils # (Auto) 0.02 K/uL RDW Standard Deviation 43.9 fL RDW Coefficient of Variation 13.2 % Immature Granulocyte % (Auto) 0.3 % Immature Granulocyte # (Auto) 0.02 K/uL Sodium Level 143 mmol/L Potassium Level 3.5 mmol/L Chloride Level 113 mmol/L Carbon Dioxide Level 26 mmol/L Anion Gap 4.0 mmol/L Blood Urea Nitrogen 22 mg/dl Creatinine 1.56 mg/dl Est Creatinine Clear Calc Drug Dose 38.7 ml/min Estimated GFR () 46.6 Estimated GFR (Non- 40.2 BUN/Creatinine Ratio 14.2 Random Glucose 86 mg/dl Calcium Level 8.0 mg/dl Phosphorus Level 2.8 mg/dl Magnesium Level 2.0 mg/dl Total Creatine Kinase 8682 U/L Creatine Kinase MB 5.9 ng/ml Troponin I 0.025 ng/ml Assessment and Plan 82 y/o M Hx Hypothyroidism, Colon CA 2007, CKD III, GERD. The pt is independent and resides by himself in the [facility] area. He was visited by family today and it was noted that he was acutely confused and preparing to eat one of his houseplants. He was brought into the hospital therefore. He was afebrile on arrival to the ER. Labs however, were highly abnormal revealing a CK of 60,000 and mild renal impairment above baseline. A UA is equivocal and no additional source of infection is apparent. There is no indication that he had been on the ground for an appreciable period or suffered any muscle injury. He does walk daily and may have been walking more than usual owing to unseasonably warm weather. The pt himself is cooperative but does display some confusion and is unable to reliably contribute to the HPI. Rhabdomyolysis secondary to a mechanical fall- IMPROVING: - Admitted to med/surg - Cardiac enzymes- troponin peaked at 0.09 - Aggressive IV NSS @ 200 ml/hr x3 bags, then IV NSS @ 100 ml/hr - Treated w/ 150 mEq sodium bicarbonate - Follow CRP- 60,000 on admission- trending down, now at 8000 ARETHA on CKD stage III- follows w/ Dr. 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.4- IMPROVING: - Follow PRP- straightedge machine operator helper currently 1.56 - IVF as above - UA abnormal- UCx w/ mixed growth, repeat recommended- repeat UCx pending; did receive IV Rocephin x1 dose on 11/17- will hold on further abx at this time - Avoid nephrotoxic agents and renally dose as appropriate - Consider nephrology consultation if straightedge machine operator helper worsening Metabolic encephalopathy, likely secondary to dehydration, ARETHA, alkalosis from rhabdomyolysis- RESOLVED: - Head CT negative for acute findings - No clear s/s of infection- repeating UCx, CXR w/out acute findings - Supportive measures, continue to monitor Hypothyroidism- TSH 4.97: - Continue Synthroid 50 mcg daily - f/u w/ PCP- recommend repeat in 4-6 weeks h/o colon cancer- noted GERD: Protonix while inpatient- resume Prilosec at discharge DVT prophylaxis: Heparin SQ TID Code status: LEVEL I, FULL Dispo: From home, lives alone- will likely need placement- PT/OT and CM consulted
[2017-11-19 15:43] VITALS: BP 148/80; PULSE 62; TEMP 36.6; O2SAT 94
[2017-11-19 22:37] VITALS: BP 148/65; PULSE 62; TEMP 36.8; O2SAT 93
[2017-11-20] MEDS: SODIUM CHLORIDE 0.9% 1000ML 1,000 ML IV SCH ×3 (02:53→23:04)
[2017-11-20] MEDS: LEVOTHYROXINE 50 MCG TAB PO SCH (05:57)
[2017-11-20] MEDS: HEPARIN SOD 5000 UNIT/0.5 ML CARP SQ SCH ×2 (05:58→21:38)
[2017-11-20 06:51] LABS: BASO % 0.4 %; BASO ABS # 0.02 K/uL (0-0.2); EOS % 8.1 %; EOS ABS # 0.46 K/uL (0-0.5); HEMATOCRIT 36.9 % (42-52); HEMOGLOBIN 12.7 g/dL (14.0-18.0); IG# 0.03 K/uL (0.00-0.02); LYMPH % 18.3 %; LYMPH ABS # 1.04 K/uL (1.2-3.4); MEAN CELL VOLUME 90.4 fL (80-100); MEAN CORPUSCULAR HEMOGLOBIN 31.1 pg (25-34); MEAN CORPUSCULAR HGB CONC 34.4 g/dl (32-36); MEAN PLATELET VOLUME 10.3 fL (7.4-10.4); MONO % 11.8 %; MONO ABS # 0.67 K/uL (0.11-0.59); NEUT % 60.9 %; NEUT ABS # 3.47 K/uL (1.4-6.5); PLATELET COUNT 162 K/uL (130-400); RED CELL DISTRIBUTION WIDTH SD 42.6 fL (36.4-46.3); WHITE BLOOD COUNT 5.69 K/uL (4.8-10.8)
[2017-11-20 07:25] LABS: CALCIUM 8.1 mg/dl (8.5-10.1); CREATININE 1.51 mg/dl (0.60-1.40); POTASSIUM 3.6 mmol/L (3.5-5.1)
[2017-11-20 07:49] VITALS: BP 152/68; PULSE 59; TEMP 36.6; O2SAT 94
--- NOTE | 2017-11-20 14:43 | Progress Note ---
Subjective Date of Service: Nov 20, 2017. Subjective Pt evaluation today including: conversation w/ patient, conversation w/ family , physical exam, chart review, review of inpatient medication list Generalized fatigue, is better, denies muscle aches, denies fever and chill Problem List Medical Problems: (1) Abdominal pain Status: Acute (2) Altered mental status Status: Acute (3) Elevated LFTs Status: Acute (4) Elevated troponin Status: Acute (5) UTI (urinary tract infection) Status: Acute Review of Systems Constitutional: No fever, No chills, No sweats, No weight loss, No weakness, No fatigue, No problem reported Eyes: No worsening of vision, No eye pain, No redness, No discharge, No diplopia ENT: No hearing loss, No unusual epistaxis, No nasal symptoms, No sore throat, No tinnitus, No dental problems, No trouble swallowing Respiratory: No cough, No sputum, No wheezing, No shortness of breath, No dyspnea on exertion, No dyspnea at rest, No hemoptysis Cardiac: No chest pain, No orthopnea, No PND, No edema, No claudication, No palpitations Abdomen: No pain, No nausea, No vomiting, No diarrhea, No constipation Musculoskeletal: No joint pain, No muscle pain, No swelling, No calf pain Male : No dysuria, No urinary frequency, No incontinence, No nocturia more than once/night, No slowing stream, No hematuria Neurologic: No memory loss, No paralysis, No weakness, No numbness/tingling, No vertigo, No balance problems Psychiatric: No depression symptoms, No anhedonism, No anxiety, No insomnia, No substance abuse Heme: No abnormal bleeding/bruising, No clotting problems, No swollen lymph nodes, No night sweats Endo: No fatigue, No excessive thirst, No excessive urination Skin: No rash, No itch, No new/changing skin lesions, No color change, No bleeding Objective Vital Signs Date Time Temp Pulse Resp B/P (MAP) Pulse Ox O2 Delivery O2 Flow Rate FiO2 11/20/17 07:49 36.6 59 18 152/68 (96) 94 Room Air 11/20/17 07:45 Room Air 11/20/17 00:00 Room Air 11/19/17 22:37 36.8 62 18 148/65 (92) 93 Room Air 11/19/17 20:00 Room Air 11/19/17 16:00 Room Air 11/19/17 15:43 36.6 62 18 148/80 (102) 94 Room Air Physical Exam General Appearance: WD/WN, no apparent distress, + pertinent finding (OAA 3 no confused) Eyes: normal inspection, PERRL, EOMI, sclerae normal ENT: normal ENT inspection, hearing grossly normal, pharynx normal Neck: supple, no adenopathy, thyroid normal, no JVD, no carotid bruits, trachea midline Respiratory/Chest: chest non-tender, lungs clear, normal breath sounds, no respiratory distress, no accessory muscle use, + decreased breath sounds Cardiovascular: regular rate, rhythm, no edema, no gallop, no JVD, no murmur Abdomen: normal bowel sounds, non tender, soft, no organomegaly, no pulsatile mass Extremities: normal range of motion, non-tender, normal inspection, no pedal edema, no calf tenderness, normal capillary refill, pelvis stable 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, no motor/sensory deficits, alert, normal mood/affect, oriented x 3 Skin: normal color, warm/dry, no rash Lymphatic: no adenopathy Laboratory Results Last 24 Hours Test 11/20/17 06:29 White Blood Count 5.69 K/uL Red Blood Count 4.08 M/uL Hemoglobin 12.7 g/dL Hematocrit 36.9 % Mean Corpuscular Volume 90.4 fL Mean Corpuscular Hemoglobin 31.1 pg Mean Corpuscular Hemoglobin Concent 34.4 g/dl Platelet Count 162 K/uL Mean Platelet Volume 10.3 fL Neutrophils (%) (Auto) 60.9 % Lymphocytes (%) (Auto) 18.3 % Monocytes (%) (Auto) 11.8 % Eosinophils (%) (Auto) 8.1 % Basophils (%) (Auto) 0.4 % Neutrophils # (Auto) 3.47 K/uL Lymphocytes # (Auto) 1.04 K/uL Monocytes # (Auto) 0.67 K/uL Eosinophils # (Auto) 0.46 K/uL Basophils # (Auto) 0.02 K/uL RDW Standard Deviation 42.6 fL RDW Coefficient of Variation 13.0 % Immature Granulocyte % (Auto) 0.5 % Immature Granulocyte # (Auto) 0.03 K/uL Sodium Level 143 mmol/L Potassium Level 3.6 mmol/L Chloride Level 113 mmol/L Carbon Dioxide Level 24 mmol/L Anion Gap 6.0 mmol/L Blood Urea Nitrogen 20 mg/dl Creatinine 1.51 mg/dl Est Creatinine Clear Calc Drug Dose 40.0 ml/min Estimated GFR () 48.5 Estimated GFR (Non- 41.8 BUN/Creatinine Ratio 13.1 Random Glucose 94 mg/dl Calcium Level 8.1 mg/dl Phosphorus Level 3.0 mg/dl Magnesium Level 1.9 mg/dl Total Creatine Kinase 4413 U/L Assessment and Plan 82 y/o M admitted on November 17, 2017 because of Rhabdomyolysis and acutely confused Rhabdomyolysis, etiology unknown: Significant improving ARETHA on CKD stage III- follows w/ Dr. 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 underlying cognitive dysfunction from baseline dementia, Metabolic encephalopathy treated and resolved due to alkalosis, dehydration, rhabdomyolysis, patient has no signs of infection Head CT negative for acute findings , No clear s/s of infection, CXR w/out acute findings Supportive measures, continue to monitor Continue aggressive IV fluid, follow-up CPK Discussed the case with Dr. Austin Ambulatory dysfunction PTOT recommend rehab, agreed Today renal function is improving total CPK has decreased to around 4000, encourage p.o. fluid intake, decrease IV fluid, Discussed patient and daughter, ordered a PT OT, rehab if needed Plan discharge to rehab tomorrow Continued [facility] stay due to: home environment unsafe for pt Discharge planning: rehab hospital
[2017-11-20 16:22] VITALS: BP 153/72; PULSE 70; TEMP 36.8; O2SAT 95
[2017-11-21 00:10] VITALS: BP 128/76; PULSE 71; TEMP 36.4; O2SAT 93
[2017-11-21] MEDS: HEPARIN SOD 5000 UNIT/0.5 ML CARP SQ SCH (06:10)
[2017-11-21] MEDS: LEVOTHYROXINE 50 MCG TAB PO SCH (06:23)
[2017-11-21 07:42] LABS: HEMATOCRIT 36.7 % (42-52); HEMOGLOBIN 12.8 g/dL (14.0-18.0); MEAN CORPUSCULAR HEMOGLOBIN 31.4 pg (25-34); MEAN CORPUSCULAR HGB CONC 34.9 g/dl (32-36); PLATELET COUNT 175 K/uL (130-400); RED CELL DISTRIBUTION WIDTH SD 42.4 fL (36.4-46.3); WHITE BLOOD COUNT 5.45 K/uL (4.8-10.8)
[2017-11-21 08:20] VITALS: BP 150/73; PULSE 64; TEMP 36.5; O2SAT 92
[2017-11-21 08:24] LABS: CALCIUM 8.1 mg/dl (8.5-10.1); CREATININE 1.47 mg/dl (0.60-1.40); POTASSIUM 3.5 mmol/L (3.5-5.1)
--- NOTE | 2017-11-21 09:53 | Discharge Instructions ---
Discharge Instructions Date of Service Nov 21, 2017. Admission Reason for Admission: Rhabdomyolysis Discharge Discharge Diagnosis / Problem: Rhabdomyolysis and acutely confused Discharge Goals Goal(s): Decrease discomfort, Improve function, Increase independence, Improve disease control, Improve nutritional status, Learn about illness, Diagnostic testing, Therapeutic intervention, Prevent Disease Progression, Specific goals Activity Recommendations Activity Level: Up Ad Sarah, Ambulates in room, Bedrest, Self Positioning, OOB In Chair, Assistance Required, Bedside Commode Therapies: Physical Therapy, Occupational Therapy . Additional Information Patient informed of condition: Yes Advance Directives: No DNR: No Level of Care: Acute Rehab Communicable Disease: No Prognosis: Stable Del Real Catheter: No Instructions / Follow-Up Instructions / Follow-Up you have Rhabdomyolysis, you have Acute kidney injury with history of chronic kidney disease. you have Ambulatory dysfunction PTOT recommend rehab, you need to have plenty oral fluid intake, and check labs of BMP, and CPK in 3 days when in rehab, report to pcp of the results - you need to follow up with your primary care physician in 1 week, - take medication as instructed, never overdose or any misuse, or take with alcohol, because misuse of medicine may cause organ damage or , call your primary care physician if have questions of medicaitons. - call your primary care physician OR go to local emergency room if has any fever/chill, chest pain, shortness of breathing, nausea/vomiting/abdominal pain , facial droop/slurry speech/local weakness, or if has any questions. - fall precaution - diet as instructed Current Hospital Diet Patient's current hospital diet: Regular Diet Discharge Diet Recommended Diet: AHA Diet (Heart Healthy) Pending Studies Studies pending at discharge: no Physician Orders On Transfer POLST Discussion: without POLST completion Medical Emergencies . Who to Call and When: Medical Emergencies: If at any time you feel your situation is an emergency, please call 911 immediately. . Non-Emergent Contact Non-Emergency issues call your: Primary Care Provider . . "Provider Documentation" section prepared by Ayaan Mccurdy. . Core Measure Problem Core Measures: None
[2017-11-21 10:08] VITALS: BP 150/73; PULSE 64; TEMP 36.5; O2SAT 92
--- NOTE | 2017-11-21 16:00 | Discharge Summary ---
Discharge Summary Date of Service Nov 21, 2017. Discharge Summary Admission Date: Nov 17, 2017 at 22:43 Discharge Date: Nov 21, 2017 Discharge Disposition: Rehab Principal Diagnosis: Acute rhabdomyolysis, Problems/Secondary Diagnoses: Acute kidney injury with history of chronic kidney disease stage III Ambulatory dysfunction Immunizations: Have You Had Influenza Vaccine: N/A History of Tetanus Vaccine?: Yes History of Pneumococcal: Yes History of Hepatitis B Vaccine: No Procedures: No Consultations: No Medication Reconciliation Continued Medications: Acetaminophen (Tylenol Arthitis Ext Rel) 650 Mg Ertab 2 TAB PO BID PRN for Pain, CAP Cholecalciferol (Vitamin D3) 2,000 Unit Cap 1 CAP PO QAM Ferrous Sulfate (Ferrous Sulfate) 325 Mg Tab 325 MG PO BID Levothyroxine Sodium (Levothyroxine Sodium) 50 Mcg Tab 1 TAB PO QAM, TAB Multivitamin (Multivitamin) Tab 1 TAB PO QAM, TAB Omeprazole (Prilosec) 20 Mg Cap 20 MG PO BID PRN for REFLUX Discharge Exam Up to the restroom, no dizziness, walk well, however reported generalized weakness Review of Systems: Constitutional: No fever, No chills, No sweats, No weight loss, No weakness , No fatigue, No problem reported Eyes: No worsening of vision, No eye pain, No redness, No discharge, No diplopia, No problem reported ENT: No hearing loss, No unusual epistaxis, No nasal symptoms, No sore throat, No tinnitus, No dental problems, No trouble swallowing, No problem reported Respiratory: No cough, No sputum, No wheezing, No shortness of breath, No dyspnea on exertion, No dyspnea at rest, No hemoptysis, No problem reported Cardiovascular: No chest pain, No orthopnea, No PND, No edema, No claudication, No palpitations, No problem reported Abdomen: No pain, No nausea, No vomiting, No diarrhea, No constipation, No GI bleeding, No problem reported Musculoskeletal: No joint pain, No muscle pain, No swelling, No calf pain, No problem reported Genitourinary - Male: No hematuria, No dysuria, No urinary frequency, No urinary urgency, No urinary hesitancy, No urinary retention, No urinary incontinence, No penile discharge, No lesions, No impotence, No problem reported Psychiatric: No depression symptoms, No anhedonism, No anxiety, No insomnia , No substance abuse, No problem reported Endocrine: No fatigue, No excessive thirst, No excessive urination, No problem reported Physical Exam: General Appearance: WD/WN, no apparent distress Eyes: normal inspection, PERRL ENT: normal ENT inspection, hearing grossly normal Neck: supple, no adenopathy, thyroid normal Respiratory/Chest: chest non-tender, lungs clear, normal breath sounds, + decreased breath sounds Cardiovascular: regular rate, rhythm, no edema, no gallop, no JVD, no murmur Abdomen / GI: normal bowel sounds, non tender, soft, no organomegaly, no pulsatile mass Extremities: normal inspection, no calf tenderness, normal capillary refill , no pedal edema, normal range of motion 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 underlying cognitive dysfunction from baseline dementia, Metabolic encephalopathy treated and resolved due to alkalosis, dehydration, rhabdomyolysis, patient has no signs of infection Head CT negative for acute findings , No clear s/s of infection, CXR w/out acute findings Supportive measures, continue to monitor Continue aggressive IV fluid, follow-up CPK Discussed the case with Dr. Austin Ambulatory dysfunction PTOT recommend rehab, agreed Today renal function is improving total CPK has decreased to around 4000, encourage p.o. fluid intake, discontinue IV fluid, today's CPK is 9000 Discussed patient and daughter, ordered a PT OT, rehab if needed Plan discharge to rehab today Instructions / Follow-Up you have Rhabdomyolysis, you have Acute kidney injury with history of chronic kidney disease. you have Ambulatory dysfunction PTOT recommend rehab, you need to have plenty oral fluid intake, and check labs of BMP, and CPK in 3 days when in rehab, report to pcp of the results - you need to follow up with your primary care physician in 1 week, - take medication as instructed, never overdose or any misuse, or take with alcohol, because misuse of medicine may cause organ damage or , call your primary care physician if have questions of medicaitons. - call your primary care physician OR go to local emergency room if has any fever/chill, chest pain, shortness of breathing, nausea/vomiting/abdominal pain , facial droop/slurry speech/local weakness, or if has any questions. - fall precaution - diet as instructed Total Time Spent: Greater than 30 minutes This includes examination of the patient, discharge planning, medication reconciliation, and communication with other providers. Discharge Instructions Please refer to the electronic Patient Visit Report (Discharge Instructions) for additional information. Additional Copies To Arron Austin M.D.; [facility]
== END 2017-11-21 12:55 | DRG 682 ==
LOC: EDBD 17:34 → C.EDC 17:37 → C.MS2W 22:43 → ENRESERV 23:35
PROVIDERS: ADMIT Internal Medicine; ATTEND Hospitalist
DX: N17.9 Acute kidney failure, unspecified (principal); G93.41 Metabolic encephalopathy; M62.82 Rhabdomyolysis; E03.9 Hypothyroidism, unspecified; N18.3 Chronic kidney disease, stage 3 (moderate); K21.9 Gastro-esophageal reflux disease without esophagitis; E86.0 Dehydration; Z79.899 Other long term (current) drug therapy; Z91.81 History of falling; Z85.038 Personal history of other malignant neoplasm of large intestine

== ENCOUNTER → 2017-12-04 | Outpatient (CLI) | payer OTHER, MEDICARE ==
[~2017-12-04] MED LIST changes: +OMEP20CA9 PO; -PRT/20 PO; -SODIUM BICARBONATE 8.4% INJ 150 MEQ in DEXTROSE 5% 1000ML 1,000 ML IV ONE
== END | disposition home or self-care (01) ==
LOC: C.LAB1850 11:32
PROVIDERS: ATTEND Physician Assistant
DX: M62.82 Rhabdomyolysis (principal)

== ENCOUNTER 2020-01-24 20:37 | Inpatient (IN) ==
[2020-01-24] MEDS ORDERED: PIPERACILL/TAZOBAC CONSULT ACTIVE PRN (21:06)
[2020-01-24] MEDS ORDERED: PIPERACILLIN/TAZOBACTAM 4.5 GM/120 ML BAG IV ONE (21:06)
[2020-01-24] MEDS ORDERED: SODIUM CHLORIDE 0.9% 1000ML 1,000 ML IV ONE (21:06)
--- NOTE | 2020-01-24 21:11 | Emergency Department Note ---
Impression & Plan Pancreatitis due to common bile duct stone, Choledocholithiasis, Elevated bilirubin ED Provider Note NAME: JOSELO EUBANKS AGE: 84 SEX: M : 1935 ARRIVES VIA: Walk-In INFORMANT: Patient ED PROVIDER(S): Everardo Jimenez DO CHIEF COMPLAINT: Abdominal pain HPI: Patient is an 84-year-old male who presents the ER for abdominal pain. This is been going on for the past week. It is located in the periumbilical region. He did have one episode of vomiting throughout this week but otherwise no vomiting. Last bowel movement was yesterday. His urine has been much darker. He called his PCP who sent him for a UA which she did earlier today. Pain and shaking have gotten worse. Does have a history of colon cancer with a previous resection. He denies any cough, congestion or fevers. Daughter notes that he has turned yellow in the past 24 hours. He does not believe his stools have become pale. ROS: See above HPI for pertinent positives & negatives. A total of 10 systems reviewed and were otherwise negative. PAST MEDICAL HISTORY:See Below PAST SURGICAL HISTORY:See Below FAMILY HISTORY:See Below SOCIAL HISTORY:See Below HOME MEDICATIONS:See Below ALLERGIES:See Below VITALS:See Below PHYSICAL EXAMINATION: GENERAL: Sitting up in bed, alert, shaking, ill-appearing EYE EXAM: Scleral icterus OROPHARYNX: no exudate, no erythema, lips, buccal mucosa, and tongue normal and mucous membranes are moist NECK: supple, no nuchal rigidity, no adenopathy, non-tender LUNGS: Clear to auscultation. Normal chest wall mechanics HEART: no murmurs, S1 normal and S2 normal ABDOMEN: abdomen soft, tender palpation right upper quadrant, normo-active bowel sounds, no masses, no rebound or guarding. BACK: Back is symmetrical on inspection and there is no deformity, no midline tenderness, no CVA tenderness. SKIN: no rashes and no bruising UPPER EXTREMITIES: upper extremities are grossly normal. LOWER EXTREMITIES: No pitting edema. NEURO EXAM: Normal sensorium, cranial nerves II-XII grossly intact, normal speech, no gross weakness of arms, no gross weakness of legs. MEDICAL DECISION MAKING: Patient is an 85-year-old male who presents the ER for periumbilical abdominal pain. On exam he has point tenderness in the right upper quadrant. IV was established blood work was obtained. Labs show no significant leukocytosis or anemia. BMP with mild hypokalemia. Creatinine slightly elevated at 1.8. Up from a baseline of 1.4. Bilirubin significantly elevated at 8. LFTs were unremarkable. Lipase was elevated at 3000. CT abdomen pelvis shows dilation of the CBD as well as gallstones and pericholecystic fluid. Patient was given IV fluids IV Zosyn. He was updated bedside. Discussed with general surgery Dr. Kline as well as gastroenterology Dr. Alicea. Discussed with the hospitalist. Patient will be admitted for choledocholithiasis, gallstone pancreatitis and questionable cholecystitis based on the CT read. Cover testing was ordered per ER request for the OR in the morning. Triage Nursing notes reviewed. Prior medical records reviewed Vital Signs: reviewed and remarkable for presents hypertension Differential diagnosis: Differential diagnosis includes etiologies such as sepsis, UTI, pneumonia, metabolic, electrolyte abnormalities, cardiac sources, intracerebral event, toxicologic, neurological, as well as others were entertained. ER treatment provided: See below Diagnostics interpreted by me: ECG: Sinus tachycardia rate of 109 PVCs Poor baseline Normal axis Normal QTC Cardiac Monitoring: An order was placed for continuous cardiac monitoring. The monitor shows a rate of 101 with sinus rhythm. Laboratory studies: As stated above and show below. Imaging studies: CT abdomen pelvis shows distended CBD along with pericholecystic fluid and gallstones. Consultation(s): Discussed with Dr. Alicea from gastroenterology who requested COVID testing Discussed with general surgery. Agree with treatment Discussed with Dr. Michael Jeffers for admission ED COURSE: Procedures: none Critical Care: None Past Med/Surg History Family History (Updated 10/19/19 @ 09:43 by Marky Amado) Father , Age 72 No problems noted. Mother , Age 82 No problems noted. 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 Required: No Beliefs That Will Affect Care: None marital status: / Current Living Situation: Alone current occupational status: retired Feels Safe at Home: Yes Smoking Status: Former smoker Age Started Using Tobacco: 18 ; Age Quit Using Tobacco: 42 ; Do You Dip or Chew Tobacco: No ; Hx Alcohol Use: No Hx Substance Use: No Allergies Allergies Allergy/AdvReac Type Severity Reaction Status Date / Time No Known Allergies Allergy Verified 01/24/20 22:33 Home Meds Home Medications Medication Instructions Recorded Confirmed cholecalciferol (vitamin D3) 50 2,000 units PO DAILY cap 02/28/19 01/24/20 mcg (2,000 unit) capsule ferrous sulfate 325 mg (65 mg 325 mg PO BID #180 tab 02/28/19 01/24/20 iron) tablet multivitamin 1 tab PO DAILY 02/28/19 01/24/20 acetaminophen [Tylenol Arthritis 1,300 mg PO QAM 01/24/20 01/24/20 Pain] Previous Rx's Medication Instructions Recorded levothyroxine 50 mcg tablet 50 mcg PO DAILY #90 tab 08/19/19 omeprazole 20 mg capsule,delayed 20 mg PO BID #180 cap 08/19/19 release Results & Data (ED) Vital Signs Vital Signs - 24 hr 01/24/20 20:41 01/24/20 21:08 01/24/20 21:12 Temperature 36.8 C Temperature Source Oral Pulse Rate 77 112 H 93 H Pulse Rate [Right Finger] Respiratory Rate 18 24 24 Respiratory Effort / Characteristics Non-Labored Respiratory Depth Normal Blood Pressure 146/74 H 171/71 H Blood Pressure [Left Arm] Blood Pressure Mean 98 100 Blood Pressure Mean [Left Arm] Pulse Oximetry 94 Oxygen Delivery Method Room Air Sepsis Recent Fever Within 48 Hours No Sepsis Action Taken by Nursing No Action Required 01/24/20 21:20 01/24/20 21:30 01/24/20 21:55 Temperature Temperature Source Pulse Rate 95 H 114 H 89 Pulse Rate [Right Finger] Respiratory Rate 30 H 28 H 21 Respiratory Effort / Characteristics Respiratory Depth Blood Pressure Blood Pressure [Left Arm] Blood Pressure Mean Blood Pressure Mean [Left Arm] Pulse Oximetry Oxygen Delivery Method Sepsis Recent Fever Within 48 Hours Sepsis Action Taken by Nursing 01/24/20 22:00 01/24/20 22:02 01/24/20 22:03 Temperature Temperature Source Pulse Rate 85 91 H Pulse Rate [Right Finger] 86 Respiratory Rate 21 18 19 Respiratory Effort / Characteristics Respiratory Depth Blood Pressure 130/58 L Blood Pressure [Left Arm] 130/58 L Blood Pressure Mean 71 Blood Pressure Mean [Left Arm] 82 Pulse Oximetry 97 Oxygen Delivery Method Sepsis Recent Fever Within 48 Hours Sepsis Action Taken by Nursing 01/24/20 22:10 01/24/20 22:15 01/24/20 22:20 Temperature Temperature Source Pulse Rate 82 94 H 87 Pulse Rate [Right Finger] Respiratory Rate 22 28 H 28 H Respiratory Effort / Characteristics Respiratory Depth Blood Pressure 142/54 H Blood Pressure [Left Arm] Blood Pressure Mean 94 Blood Pressure Mean [Left Arm] Pulse Oximetry Oxygen Delivery Method Sepsis Recent Fever Within 48 Hours Sepsis Action Taken by Nursing 01/24/20 22:30 01/24/20 22:31 01/24/20 22:40 Temperature Temperature Source Pulse Rate 88 85 85 Pulse Rate [Right Finger] Respiratory Rate 20 24 24 Respiratory Effort / Characteristics Respiratory Depth Blood Pressure 133/57 L Blood Pressure [Left Arm] Blood Pressure Mean 89 Blood Pressure Mean [Left Arm] Pulse Oximetry Oxygen Delivery Method Sepsis Recent Fever Within 48 Hours Sepsis Action Taken by Nursing 01/24/20 22:42 01/24/20 22:45 01/24/20 22:50 Temperature Temperature Source Pulse Rate 82 82 Pulse Rate [Right Finger] 82 Respiratory Rate 16 20 12 Respiratory Effort / Characteristics Respiratory Depth Blood Pressure 140/57 L Blood Pressure [Left Arm] 133/57 L Blood Pressure Mean 77 Blood Pressure Mean [Left Arm] 82 Pulse Oximetry 95 Oxygen Delivery Method Sepsis Recent Fever Within 48 Hours Sepsis Action Taken by Nursing 01/24/20 23:00 01/24/20 23:10 01/24/20 23:15 Temperature Temperature Source Pulse Rate 79 80 Pulse Rate [Right Finger] Respiratory Rate 25 H 18 22 Respiratory Effort / Characteristics Respiratory Depth Blood Pressure 130/55 L 128/60 Blood Pressure [Left Arm] Blood Pressure Mean 67 84 Blood Pressure Mean [Left Arm] Pulse Oximetry Oxygen Delivery Method Sepsis Recent Fever Within 48 Hours Sepsis Action Taken by Nursing 01/24/20 23:20 01/24/20 23:30 01/24/20 23:31 Temperature Temperature Source Pulse Rate 84 76 86 Pulse Rate [Right Finger] Respiratory Rate 24 20 26 H Respiratory Effort / Characteristics Respiratory Depth Blood Pressure 135/56 L Blood Pressure [Left Arm] Blood Pressure Mean 93 Blood Pressure Mean [Left Arm] Pulse Oximetry Oxygen Delivery Method Sepsis Recent Fever Within 48 Hours Sepsis Action Taken by Nursing 01/24/20 23:40 01/24/20 23:46 01/24/20 23:50 Temperature Temperature Source Pulse Rate 85 78 79 Pulse Rate [Right Finger] Respiratory Rate 23 23 20 Respiratory Effort / Characteristics Respiratory Depth Blood Pressure 128/61 Blood Pressure [Left Arm] Blood Pressure Mean 63 Blood Pressure Mean [Left Arm] Pulse Oximetry Oxygen Delivery Method Sepsis Recent Fever Within 48 Hours Sepsis Action Taken by Nursing Laboratory Data Result diagrams: 01/24/20 21:04 01/24/20 21:04 Lab Results 01/24/20 01/24/20 01/24/20 Range/Units 21:04 21:04 21:12 WBC 9.67 (4.8-10.8) K/uL RBC 4.39 L (4.7-6.1) M/uL Hgb 13.8 L (14.0-18.0) g/dL POC Hgb 14.3 (14.0-18.0) g/dl Hct 41.4 L (42-52) % POC Hct 42 (42-52) % MCV 94.3 (80-100) fL MCH 31.4 (25-34) pg MCHC 33.3 (32-36) g/dL RDW Std Deviation 46.4 H (36.4-46.3) fL RDW Coeff of Kel 13.4 (11.5-14.5) % Plt Count 226 (130-400) K/uL MPV 10.7 H (7.4-10.4) fL Immature Gran % (Auto) 0.3 % Neut % (Auto) 86.1 % Lymph % (Auto) 7.1 % Greene % (Auto) 3.8 % Eos % (Auto) 2.6 % Baso % (Auto) 0.1 % Neut # (Auto) 8.32 H (1.4-6.5) K/uL Lymph # (Auto) 0.69 L (1.2-3.4) K/uL Greene # (Auto) 0.37 (0.11-0.59) K/uL Eos # (Auto) 0.25 (0-0.5) K/uL Baso # (Auto) 0.01 (0-0.2) K/uL Immature Gran # (Auto) 0.03 H (0.00-0.02) K/uL POC Sodium 138 (135-144) mmol/L Sodium 138 (136-145) mmol/L POC Potassium 3.5 (3.3-5.0) mmol/L Potassium 3.4 L (3.5-5.1) mmol/L POC Chloride 102 (101-112) mmol/L Chloride 105 (98-107) mmol/L Carbon Dioxide 25 (21-32) mmol/L POC Total CO2 24 (24-31) mmol/L Anion Gap 8.0 (3-11) POC Anion Gap 16.0 (16-25) mmol/L POC BUN 30 H (7-18) mg/dl BUN 29 H (7-18) mg/dl Creatinine 1.84 H (0.6-1.4) mg/dl POC Creatinine 1.7 H (0.6-1.3) mg/dl Est Cr Clr Drug Dosing Not Reportable Est GFR ( Amer) 37.6 Est GFR (Non-Af Amer) 32.5 BUN/Creatinine Ratio 15.9 (10-20) Glucose 112 H (70-99) mg/dl POC Glucose (other) 117 H (70-99) mg/dl Lactate (0.4-2.0) mmol/L Calcium 9.3 (8.5-10.1) mg/dl POC Ioniz Calcium Sinan 1.06 L (1.12-1.32) mmol/l Total Bilirubin 8.2 H (0.2-1) mg/dl AST 44 H (15-37) U/L ALT 77 (12-78) U/L Alkaline Phosphatase 413 H (45-117) U/L Total Protein 7.3 (6.4-8.2) gm/dl Albumin 3.3 L (3.4-5.0) gm/dl Globulin 4.0 (2.5-4.0) gm/dl Albumin/Globulin Ratio 0.8 L (0.9-2) Lipase 3549 H (73-393) U/L COVID-19 PCR (Negative) 01/24/20 01/24/20 Range/Units 21:29 22:39 WBC (4.8-10.8) K/uL RBC (4.7-6.1) M/uL Hgb (14.0-18.0) g/dL POC Hgb (14.0-18.0) g/dl Hct (42-52) % POC Hct (42-52) % MCV (80-100) fL MCH (25-34) pg MCHC (32-36) g/dL RDW Std Deviation (36.4-46.3) fL RDW Coeff of Kel (11.5-14.5) % Plt Count (130-400) K/uL MPV (7.4-10.4) fL Immature Gran % (Auto) % Neut % (Auto) % Lymph % (Auto) % Greene % (Auto) % Eos % (Auto) % Baso % (Auto) % Neut # (Auto) (1.4-6.5) K/uL Lymph # (Auto) (1.2-3.4) K/uL Greene # (Auto) (0.11-0.59) K/uL Eos # (Auto) (0-0.5) K/uL Baso # (Auto) (0-0.2) K/uL Immature Gran # (Auto) (0.00-0.02) K/uL POC Sodium (135-144) mmol/L Sodium (136-145) mmol/L POC Potassium (3.3-5.0) mmol/L Potassium (3.5-5.1) mmol/L POC Chloride (101-112) mmol/L Chloride (98-107) mmol/L Carbon Dioxide (21-32) mmol/L POC Total CO2 (24-31) mmol/L Anion Gap (3-11) POC Anion Gap (16-25) mmol/L POC BUN (7-18) mg/dl BUN (7-18) mg/dl Creatinine (0.6-1.4) mg/dl POC Creatinine (0.6-1.3) mg/dl Est Cr Clr Drug Dosing Est GFR ( Amer) Est GFR (Non-Af Amer) BUN/Creatinine Ratio (10-20) Glucose (70-99) mg/dl POC Glucose (other) (70-99) mg/dl Lactate 1.8 (0.4-2.0) mmol/L Calcium (8.5-10.1) mg/dl POC Ioniz Calcium Sinan (1.12-1.32) mmol/l Total Bilirubin (0.2-1) mg/dl AST (15-37) U/L ALT (12-78) U/L Alkaline Phosphatase (45-117) U/L Total Protein (6.4-8.2) gm/dl Albumin (3.4-5.0) gm/dl Globulin (2.5-4.0) gm/dl Albumin/Globulin Ratio (0.9-2) Lipase (73-393) U/L COVID-19 PCR NEGATIVE (Negative) Administered Medications Ioversol (Optiray 320 100ml) 94 ml IV ONCE PRN PRN Reason: Interaction Checking Stop: 01/28/20 21:45 Last Admin: 01/24/20 21:46 Dose: 94 ml Documented by: [id number] Discontinued Medications Sodium Chloride (Nss 1000ml) 1,000 mls @ 999 mls/hr IV .Q1H1M ONE Stop: 01/24/20 22:06 Last Infusion: 01/24/20 22:15 Dose: 0 mls/hr Documented by: [id number] Admin: 01/24/20 21:18 Dose: 999 mls/hr Documented by: [id number] Piperacillin Sod/Tazobactam Sod (Zosyn) 4.5 gm in 120 mls @ 240 mls/hr IV NOW ONE Stop: 01/24/20 21:35 Last Infusion: 01/24/20 22:15 Dose: 0 mls/hr Documented by: [id number] Admin: 01/24/20 21:28 Dose: 240 mls/hr Documented by: [id number] Discharge Plan Visit Data Chief Complaint: GI Assessment Stated Complaint: CHILLS STOMACH PAIN BLOOD IN URINE WEAKNESS ED Provider: Everardo Jimenez Discharge Problem: Pancreatitis due to common bile duct stone, Choledocholithiasis, Elevated bilirubin Forms Stand Alone Forms: [facility] [place] [employer] Prescriptions Prescriptions: No Action levothyroxine 50 mcg tablet 50 mcg PO DAILY Qty: 90 RF: 1 omeprazole 20 mg capsule,delayed release(DR/EC) 20 mg PO BID Qty: 180 RF: 3 ferrous sulfate 325 mg (65 mg iron) tablet 325 mg PO BID Qty: 180 RF: 0 multivitamin [Multiple Vitamins] tablet 1 tab PO DAILY RF: 0 cholecalciferol (vitamin D3) 2,000 unit capsule 2,000 units PO DAILY RF: 0 acetaminophen [Tylenol Arthritis Pain] 650 mg Tablet Extended Release 1,300 mg PO QAM RF: 0
[2020-01-24 21:18] LABS: Basophils # (auto) 0.01 K/uL (0-0.2); Basophils % (auto) 0.1 %; Eosinophils # (auto) 0.25 K/uL (0-0.5); Eosinophils % (auto) 2.6 %; Hematocrit (blood only) 41.4 % (42-52); Hemoglobin 13.8 g/dL (14.0-18.0); Immature Granulocytes # (auto) 0.03 K/uL (0.00-0.02); Immature Granulocytes % (auto) 0.3 %; Lymphocytes # (auto) 0.69 K/uL (1.2-3.4); Lymphocytes % (auto) 7.1 %; Mean Corpuscular Hemoglobin 31.4 pg (25-34); Mean Corpuscular Hgb Conc 33.3 g/dL (32-36); Mean Corpuscular Volume 94.3 fL (80-100); Mean Platelet Volume 10.7 fL (7.4-10.4); Monocytes # (auto) 0.37 K/uL (0.11-0.59); Monocytes % (auto) 3.8 %; Neutrophils # (auto) 8.32 K/uL (1.4-6.5); Neutrophils % (auto) 86.1 %; Platelet Count 226 K/uL (130-400); RDW Coefficient of Variation 13.4 % (11.5-14.5); RDW Standard Deviation 46.4 fL (36.4-46.3); Red Blood Count 4.39 M/uL (4.7-6.1); White Blood Count 9.67 K/uL (4.8-10.8)
[2020-01-24 21:24] LABS: iSTAT Creatinine 1.7 mg/dl (0.6-1.3); iSTAT Hemoglobin 14.3 g/dl (14.0-18.0); iSTAT Ionized Calcium 1.06 mmol/l (1.12-1.32); iSTAT Potassium 3.5 mmol/L (3.3-5.0)
[2020-01-24 21:39] LABS: Alanine Aminotransferase 77 U/L (12-78); Albumin Globulin Ratio 0.8 (0.9-2); Albumin Level 3.3 gm/dl (3.4-5.0); Alkaline Phosphatase 413 U/L (45-117); Aspartate Aminotransferase 44 U/L (15-37); BUN Creatinine Ratio 15.9 (10-20); Bilirubin,Total 8.2 mg/dl (0.2-1); Blood Urea Nitrogen 29 mg/dl (7-18); Calcium 9.3 mg/dl (8.5-10.1); Carbon Dioxide 25 mmol/L (21-32); Chloride 105 mmol/L (98-107); Est GFR (African American) 37.6; Est GFR (Non-African American) 32.5; Glucose 112 mg/dl (70-99); Lipase 3549 U/L (73-393); Potassium 3.4 mmol/L (3.5-5.1); Sodium 138 mmol/L (136-145); Total Protein 7.3 gm/dl (6.4-8.2)
[2020-01-24] MEDS ORDERED: IOVERSOL 100ml IV PRN (21:46)
--- NOTE | 2020-01-24 23:04 | History & Physical Report ---
Date of Service January 24, 2020 Assessment & Plan (1) Choledocholithiasis: Patient Is an 84-year-old man with a history of resected colon cancer, history hypertension and renal insufficiency admitted to the hospital for abdominal pain found to be secondary to choledocholithiasis and pancreatitis. 1. Choledocholithiasis Total bilirubin elevated at 8.2, AST elevated at 44, ALT 77, alkaline phosphatase [address] abdomen pelvis with IV contrast showed a 13 mm gallstone in the common bile duct at the ampulla as well as several calcified gallstones in the gallbladder measuring up to 7 mm. Diffuse intrahepatic biliary duct dilation is also present along with a common hepatic duct measuring up to 16 mm. Plan to have [facility] evaluate in the morning and perform an ERCP in the OR given patient's labs and propensity to decline. Based on ERCP findings will consider general surgery consult tomorrow N.p.o., holding all oral medications Pain control ordered with 1000 mg IV Tylenol every 8 as needed for mild pain as well as 2 mg IV morphine every 4 hours as needed for moderate pain 2.Pancreatitis Lipase elevated to 3549 Albumin 3.3, calcium 9.3, ionized calcium 1.06 Received 1 L normal saline bolus in the emergency department continuing IV fluids at 1.5 maintenance rate We will continue to trend lipase to ensure improvement Barring further surgical intervention after ERCP patient may be restarted on a diet as he feels his appetite is returning. 3. Esophagitis Omeprazole 20 mg twice a day at home. Giving IV famotidine 20 mg IV twice a day while patient is n.p.o. 4. Hypothyroidism Takes levothyroxine 50 mcg once a day by mouth holding at the moment while n.p.o. can restart after surgical intervention DVT ppx: lovenox FEN/GI: NPO, IVNS 1.5x maintenance Code Status: Full Code Dispo: Med/Surg (2) Pancreatitis due to common bile duct stone: (3) History of colon cancer: (4) Chronic renal insufficiency: (5) Hypothyroidism: (6) BPH (benign prostatic hyperplasia): (7) HTN (hypertension): History of Present Illness Patient Is an 84-year-old man with a history of resected colon cancer, history hypertension and renal insufficiency who presents to the ED after 1 week of abdominal pain.He states that the pain is generalized to his abdomen and is unable to point to one specific place where the pain is worst. He says that the pain at rest is about a 6 out of 10 and an 8 out of 10 at its worst. He denies any radiation to his back and describes the pain as sharp and stabbing. He denies any correlation of the pain with mealtimes.He does state that he has had a decreased appetite and some nausea and one episode of nonbilious nonbloody emesis. He denies any constipation or diarrhea or changes in stool. He has been checking his temperature daily at home and states that he has not had any fevers though he has had some shivering and chills. Primary Care Provider: Arron Austin MD Allergies Allergy/AdvReac Type Severity Reaction Status Date / Time No Known Allergies Allergy Verified 01/24/20 22:33 Home Medications Home Medications Medication Instructions Recorded Confirmed Type cholecalciferol (vitamin D3) 50 2,000 units PO DAILY cap 02/28/19 01/24/20 History mcg (2,000 unit) capsule ferrous sulfate 325 mg (65 mg 325 mg PO BID #180 tab 02/28/19 01/24/20 History iron) tablet multivitamin 1 tab PO DAILY 02/28/19 01/24/20 History levothyroxine 50 mcg tablet 50 mcg PO DAILY #90 tab 08/19/19 01/24/20 Rx omeprazole 20 mg capsule,delayed 20 mg PO BID #180 cap 08/19/19 01/24/20 Rx release acetaminophen [Tylenol Arthritis 1,300 mg PO QAM 01/24/20 01/24/20 History Pain] Past Med/Surg History Medical History Acute renal failure Basal cell carcinoma History of actinic keratosis History of colon cancer Pneumonia Urinary frequency Weakness Surgical History History of colon surgery History of colonoscopy History of inguinal hernia repair, bilateral Family History Father , Age 72 No problems noted. Mother , Age 82 No problems noted. Family/Other Prostate cancer Social History Preferred Language: [place] Communication Ability: Effective Cell Preparer Required: No Beliefs That Will Affect Care: None marital status: / Current Living Situation: Alone current occupational status: retired Feels Safe at Home: Yes Smoking Status: Former smoker Age Started Using Tobacco: 18 ; Age Quit Using Tobacco: 42 ; Do You Dip or Chew Tobacco: No ; Hx Alcohol Use: No Hx Substance Use: No Review of Systems Constitutional: + chills; no fever, no body aches and no fatigue Respiratory: no cough and no dyspnea Cardiovascular: no chest pain, no dyspnea and no edema Gastrointestinal: + abdominal pain, + early satiety and + nausea; no vomiting, no change in bowel habits, no constipation and no diarrhea/loose stools Physical Exam Constitutional: + thin, cooperative and comfortable; no acute distress and not ill appearing Eyes: scleral icterus bilaterally Neck: normal visual inspection Respiratory: normal respiratory effort and able to speak in complete sentences; no respiratory distress, no labored breathing, no retractions, no cough and no audible wheezes Auscultation: lungs clear to auscultation bilaterally; no crackles, no rales, no rhonchi and no wheezes Cardiovascular: Rate/Rhythm: regular rate and regular rhythm Heart Sounds: normal S1 and normal S2; no gallop, no murmur and no cardiac rub Vessels: posterior tibial pulses present Extremities: no pedal edema and no edema Gastrointestinal (Abdomen): Inspection/Auscultation: abdomen normal to inspection and normal bowel sounds; abdomen not distended Soft, normal bowel sounds, tender to palpation of the epigastric and right upper quadrant. No guarding or rigidity. Negative Silva sign. Results & Data Results & Data ([facility]) Vital Signs (Past 12 Hours) Vital Signs Temp Pulse Pulse Resp BP BP Pulse Ox 01/24/20 22:42 82 16 133/57 L 95 01/24/20 22:02 86 18 130/58 L 97 01/24/20 20:41 36.8 C 77 18 146/74 H 94 Laboratory Results WBC 9.67 K/uL (4.8-10.8) 01/24/20 21:04 RBC 4.39 M/uL (4.7-6.1) L 01/24/20 21:04 Hgb 13.8 g/dL (14.0-18.0) L 01/24/20 21:04 POC Hgb 14.3 g/dl (14.0-18.0) 01/24/20 21:12 Hct 41.4 % (42-52) L 01/24/20 21:04 POC Hct 42 % (42-52) 01/24/20 21:12 MCV 94.3 fL (80-100) 01/24/20 21:04 MCH 31.4 pg (25-34) 01/24/20 21:04 MCHC 33.3 g/dL (32-36) 01/24/20 21:04 RDW Std Deviation 46.4 fL (36.4-46.3) H 01/24/20 21:04 RDW Coeff of Kel 13.4 % (11.5-14.5) 01/24/20 21:04 Plt Count 226 K/uL (130-400) 01/24/20 21:04 MPV 10.7 fL (7.4-10.4) H 01/24/20 21:04 Immature Gran % (Auto) 0.3 % 01/24/20 21:04 Neut % (Auto) 86.1 % 01/24/20 21:04 Lymph % (Auto) 7.1 % 01/24/20 21:04 Grundy % (Auto) 3.8 % 01/24/20 21:04 Eos % (Auto) 2.6 % 01/24/20 21:04 Baso % (Auto) 0.1 % 01/24/20 21:04 Neut # (Auto) 8.32 K/uL (1.4-6.5) H 01/24/20 21:04 Lymph # (Auto) 0.69 K/uL (1.2-3.4) L 01/24/20 21:04 Grundy # (Auto) 0.37 K/uL (0.11-0.59) 01/24/20 21:04 Eos # (Auto) 0.25 K/uL (0-0.5) 01/24/20 21:04 Baso # (Auto) 0.01 K/uL (0-0.2) 01/24/20 21:04 Immature Gran # (Auto) 0.03 K/uL (0.00-0.02) H 01/24/20 21:04 POC Sodium 138 mmol/L (135-144) 01/24/20 21:12 Sodium 138 mmol/L (136-145) 01/24/20 21:04 POC Potassium 3.5 mmol/L (3.3-5.0) 01/24/20 21:12 Potassium 3.4 mmol/L (3.5-5.1) L 01/24/20 21:04 POC Chloride 102 mmol/L (101-112) 01/24/20 21:12 Chloride 105 mmol/L (98-107) 01/24/20 21:04 Carbon Dioxide 25 mmol/L (21-32) 01/24/20 21:04 POC Total CO2 24 mmol/L (24-31) 01/24/20 21:12 Anion Gap 8.0 (3-11) 01/24/20 21:04 POC Anion Gap 16.0 mmol/L (16-25) 01/24/20 21:12 POC BUN 30 mg/dl (7-18) H 01/24/20 21:12 BUN 29 mg/dl (7-18) H 01/24/20 21:04 Creatinine 1.84 mg/dl (0.6-1.4) H 01/24/20 21:04 POC Creatinine 1.7 mg/dl (0.6-1.3) H 01/24/20 21:12 Est Cr Clr Drug Dosing Not Reportable 01/24/20 21:04 Est GFR ( Amer) 37.6 01/24/20 21:04 Est GFR (Non-Af Amer) 32.5 01/24/20 21:04 BUN/Creatinine Ratio 15.9 (10-20) 01/24/20 21:04 Glucose 112 mg/dl (70-99) H 01/24/20 21:04 POC Glucose (other) 117 mg/dl (70-99) H 01/24/20 21:12 Lactate 1.8 mmol/L (0.4-2.0) 01/24/20 21:29 Calcium 9.3 mg/dl (8.5-10.1) 01/24/20 21:04 POC Ioniz Calcium Sinan 1.06 mmol/l (1.12-1.32) L 01/24/20 21:12 Total Bilirubin 8.2 mg/dl (0.2-1) H 01/24/20 21:04 AST 44 U/L (15-37) H 01/24/20 21:04 ALT 77 U/L (12-78) 01/24/20 21:04 Alkaline Phosphatase 413 U/L (45-117) H 01/24/20 21:04 Total Protein 7.3 gm/dl (6.4-8.2) 01/24/20 21:04 Albumin 3.3 gm/dl (3.4-5.0) L 01/24/20 21:04 Globulin 4.0 gm/dl (2.5-4.0) 01/24/20 21:04 Albumin/Globulin Ratio 0.8 (0.9-2) L 01/24/20 21:04 Lipase 3549 U/L (73-393) H 01/24/20 21:04 COVID-19 PCR NEGATIVE (Negative) 01/24/20 22:39 Supervising Physician Co-Signing Physician Notes Attending addendum: I have physically seen this patient, have supervised the medical residents activities, and agree with the H&P unless as otherwise noted. Assessment and Plan: Choledocholithiasis/pancreatitis/esophagitis- NPO NSS at 150 mils per hour 13 mm gallstone in, bile duct at the level of the ampulla. Dilated intrahepatic bile duct and common hepatic duct. Consult gastroenterology for ERCP Acetaminophen 1 g IV every 8 hours PRN mild pain or temperature. Morphine sulfate 2 mg IV every 4 hours PRN moderate pain Follow serial CBC with differential, chemistry profile, magnesium and lipase levels. Famotidine 20 mg IV every 12 hours Zosyn 4.5 g IV every 8 hours Zofran 4 mg IV every 6 hours PRN Remainder of orders and notations as noted. Resident Activity Tracking Resident Involvement: Resident Care Provided Care Provided: Adult [facility]
[2020-01-25] MEDS ORDERED: PIPERACILL/TAZOBAC CONSULT ACTIVE PRN (02:26)
[2020-01-25] MEDS ORDERED: MoRPHine SULFATE 2 MG/ML CARP IV PRN (02:26)
[2020-01-25] MEDS: FAMOTIDINE 20 MG in SYRINGE 3 ML IV SCH ×3 (02:56→19:58)
[2020-01-25] MEDS: PIPERACILLIN/TAZOBACTAM 3.375 GM in DEXTROSE 5% 100 ML IV SCH ×3 (02:56→19:58)
[2020-01-25] MEDS: SODIUM CHLORIDE 0.9% 1000ML 1,000 ML IV SCH ×2 (02:56→08:12)
[2020-01-25 05:57] LABS: Appearance Urine Clear (Clear); Blood Urine Negative (Negative); Color Urine Amber; Glucose Urine UA Negative (Negative); Ketones Urine Negative (Negative); Leukocyte Esterase Urine Negative (Negative); Nitrite Urine Negative (Negative); Protein Urine 1+ (Negative); Specific Gravity Urine 1.015 (1.000-1.030); Urobilinogen Urine Negative (Negative); pH Urine 5.5 (4.5-7.5)
[2020-01-25 06:03] LABS: Bilirubin Urine 3+ (Negative); Ictotest Urine Positive (Negative)
[2020-01-25 06:14] LABS: WBC Urine 0-5 /hpf (0-5)
[2020-01-25 06:15] LABS: Bacteria Urine 1+ (Negative); RBC Urine 0-4 /hpf (0-4)
--- NOTE | 2020-01-25 07:24 | CT Scan Report ---
CT OF THE ABDOMEN AND PELVIS WITH CONTRAST CLINICAL HISTORY: Abdominal pain. Jaundice. COMPARISON STUDY: CT of the abdomen and pelvis February 25, 2016. Renal ultrasound May 17, 2018. TECHNIQUE: Following IV administration of 94 mL of Optiray-320, axial images of the abdomen and pelvi s were obtained from the lung bases to the proximal femurs. Images were reviewed in the axial, sagitt al, and coronal planes. IV contrast was administered without complication. Automated exposure contro l was utilized for the study. A dose lowering technique was utilized adhering to the principles of A JORY. CT DOSE: 1070.21 mGy.cm FINDINGS: No pneumatosis, free air or portal venous gas is present. Moderate to marked biliary ductal dilatation is noted. There are multiple distal common bile duct calculi, including a 1.2 cm calculus within the distal common bile duct. There are gallstones within the gallbladder. Gallbladder is mild ly distended. A small amount of pericholecystic fluid is noted. No hepatic lesions are identified. Mi ld splenomegaly is noted. There are granulomas within the spleen. Bilateral renal cysts are noted. Th ere is no hydronephrosis. A mildly enlarged portacaval lymph node shown on axial image 172 of 431 is noted. This is slightly increased in size since prior exam. This is probably benign. There is no evid ence for a bowel obstruction. A moderate amount stool within the colon is noted. Right colon resectio n is noted. There is no pelvic lymphadenopathy. There are no suspicious osseous lesions. No hydroneph rosis is present. There is no peripancreatic infiltration. 3 cm infrarenal abdominal aortic aneurysm is unchanged. IMPRESSION: 1. Multiple common bile duct calculi, including a 1.2 cm calculus within the distal common bile duct that results in moderate to marked biliary ductal dilatation. 2. Cholelithiasis, mild gallbladder distention and trace pericholecystic fluid. If suspicion for acut e cholecystitis, right upper quadrant ultrasound is recommended. 3. Right colon resection. No evidence for a bowel obstruction. 4. Mildly enlarged portacaval lymph node. This is nonspecific. 5. No change in a 3 cm infrarenal abdominal aortic aneurysm. ACT 112: Negative or not required by law. Electronically signed by: Bennie Hess M.D. 01/25/2020 7:23 AM
[2020-01-25] MEDS: ENOXAPARIN INJ 30 MG/0.3 ML SYR SQ SCH (08:12)
[2020-01-25] MEDS ORDERED: INDOMETHACIN 50 MG SUPP PR ONE ×2 (08:29→14:33)
[2020-01-25] MEDS ORDERED: ENOXAPARIN INJ 40 MG/0.4 ML SYR SQ SCH (09:00)
--- NOTE | 2020-01-25 09:05 | Gastrointestinal Consultation ---
Date of Consultation January 25, 2020 Assessment & Plan (1) Pancreatitis due to common bile duct stone: Pt is a 84 y/o male admitted currently for gallstones pancreatitis. CT abd/pelvis showed cholelithiasis, w stone in distal CBD as well - Keep NPO - Continue IV antibx - IVF resuscitation w LR; monitor renal function closely - Surgery consulted to eval for cholecystectomy - Will plan for ERCP by Dr. Shilo Jaime for choledocholithiasis removal w likely biliary stent removal and biliary sphincterectomy today vs tomorrow (tandem w cholecystectomy) depending on providers and OR availability - I have communicated GI plans to daughter Amarilis) via phone call. Supervising Physician Co-Signing Physician Notes I performed a history and physical examination of the patient today, including specifically on physical exam - soft abdomen. I have discussed the patient's management with the advanced practitioner. Please refer to the nurse practitioner's note for the documented findings and plan of care. ERCP today History of Present Illness Reason for Consultation: Gallstone pancreatitis, eval for ERCP Requesting Physician: Dr. Jose Carlos Bender Attending Physician: Dr. Shilo Jaime History of Present Illness Pt is a 84 y/o male w pmhx of colon ca s/p R colon resection, hypothyroidism, HTN, BPH, UTI, OP, who presented yesterday w increasing RUQ abd pain x 1 week. Family noticed he's also jaundiced. He has chills, n/v, denies any bowel habit changes. On eval, noted his LFTs up : Tbili 8, ALT 77, AST 44, Alk phose 400, lipase also increased over 3500. BUN/Cr 29/1.8. CT abd/pelvis w contrast showed multiple common bile duct calculi, including a 1.2 cm calculus within the distal common bile duct that results in moderate to marked biliary ductal dilatation. + Cholelithiasis, mild gallbladder distention and trace pericholecystic fluid. Pt denies any new meds , tobacco, ETOh abuses. Allergies Allergy/AdvReac Type Severity Reaction Status Date / Time No Known Allergies Allergy Verified 01/24/20 22:33 Home Medications Home Medications Medication Instructions Recorded Confirmed Type cholecalciferol (vitamin D3) 50 2,000 units PO DAILY cap 02/28/19 01/24/20 History mcg (2,000 unit) capsule ferrous sulfate 325 mg (65 mg 325 mg PO BID #180 tab 02/28/19 01/24/20 History iron) tablet multivitamin 1 tab PO DAILY 02/28/19 01/24/20 History levothyroxine 50 mcg tablet 50 mcg PO DAILY #90 tab 08/19/19 01/24/20 Rx omeprazole 20 mg capsule,delayed 20 mg PO BID #180 cap 08/19/19 01/24/20 Rx release acetaminophen [Tylenol Arthritis 1,300 mg PO QAM 01/24/20 01/24/20 History Pain] Patient History Medical History Acute renal failure Basal cell carcinoma History of actinic keratosis History of colon cancer Pneumonia Urinary frequency Weakness Surgical History History of colon surgery History of colonoscopy History of inguinal hernia repair, bilateral Family History Father , Age 72 No problems noted. Mother , Age 82 No problems noted. 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 Beliefs That Will Affect Care: None marital status: / Current Living Situation: Alone current occupational status: retired Feels Safe at Home: Yes Smoking Status: Former smoker Age Started Using Tobacco: 18 ; Age Quit Using Tobacco: 42 ; Do You Dip or Chew Tobacco: No ; Hx Alcohol Use: No Hx Substance Use: No Review of Systems Review of Systems: All systems reviewed & are unremarkable except as noted in HPI & below Physical Exam Constitutional: WD/WN, vitals as above well groomed, cooperative and comfortable Eyes: + scleral abnormality (mild icterus), PERRL and EOM intact bilaterally ENMT: external ear and nose normal, oropharynx normal Respiratory: normal respiratory effort, lungs clear to auscultation Cardiovascular: RRR, no murmur, no edema Gastrointestinal (Abdomen): normal bowel sounds, soft, nontender, no hepatosplenomegaly Skin: no rashes, warm and dry + jaundice Psychiatric: A+Ox3, euthymic affect Lymphatic: no lymphedema Results & Data (MN) Vital Signs (Past 12 Hours) Vital Signs Temp Pulse Pulse Resp BP BP Pulse Ox 01/25/20 07:39 36.7 C 53 L 16 119/51 L 95 01/25/20 02:07 36.9 C 74 18 107/54 L 96 01/25/20 01:31 22 101/88 01/25/20 01:30 134 H 25 H 01/25/20 01:20 69 23 01/25/20 01:15 69 25 H 131/61 01/25/20 01:10 67 21 01/25/20 01:01 72 23 01/25/20 01:00 72 22 134/78 01/25/20 00:50 70 23 01/25/20 00:45 77 24 134/69 01/25/20 00:40 77 29 H 01/25/20 00:31 74 24 01/25/20 00:30 76 19 124/61 01/25/20 00:20 73 20 01/25/20 00:15 82 23 122/67 01/25/20 00:10 74 23 01/25/20 00:01 76 20 01/25/20 00:00 75 21 136/73 01/24/20 23:50 79 20 01/24/20 23:46 78 23 128/61 01/24/20 23:40 85 23 01/24/20 23:31 86 26 H 01/24/20 23:30 76 20 135/56 L 01/24/20 23:20 84 24 01/24/20 23:15 80 22 128/60 01/24/20 23:10 18 01/24/20 23:00 79 25 H 130/55 L 01/24/20 22:50 82 12 01/24/20 22:45 82 20 140/57 L 01/24/20 22:42 82 16 133/57 L 95 01/24/20 22:40 85 24 01/24/20 22:31 85 24 01/24/20 22:30 88 20 133/57 L 01/24/20 22:20 87 28 H 01/24/20 22:15 94 H 28 H 142/54 H 01/24/20 22:10 82 22 01/24/20 22:03 91 H 19 130/58 L 01/24/20 22:02 86 18 130/58 L 97 01/24/20 22:00 85 21 01/24/20 21:55 89 21 01/24/20 21:30 114 H 28 H 01/24/20 21:20 95 H 30 H 01/24/20 21:12 93 H 24 01/24/20 21:08 112 H 24 171/71 H
[2020-01-25] MEDS: LACTATED RINGER'S 1,000 ML IV SCH ×3 (09:37→23:33)
--- NOTE | 2020-01-25 10:42 | Surgery Consultation ---
Date of Consultation January 25, 2020 Assessment & Plan (1) Elevated bilirubin: (2) Choledocholithiasis: I had a discussion with him, his son Demetrio, as well as gastroenterology. He is slightly dehydrated and getting rehydrated now. He will likely need an ERCP and the recommendation would be for laparoscopic cholecystectomy during this admission as well. We discussed the risks which would include bleeding, infection, injury to a bile duct, bile leaks, injury to other organs such as small bowel or liver, DVT, PE, MA, CVA etc. Following our discussion I answered all of his questions. We will wait to hear back from gastroenterology. If they do the ERCP tomorrow we can combine the procedures. If they feel it is safe to proceed with ERCP today I would proceed with laparoscopic cholecystectomy tomorrow. History of Present Illness Attending Physician: Jose Carlos Bender History of Present Illness 84-year-old male who presented to the emergency room last evening with severe upper abdominal pain. Work-up has revealed gallstones as well as choledocholithiasis. He has a small amount of pericholecystic fluid as well. His bilirubin was over 8. Allergies Allergy/AdvReac Type Severity Reaction Status Date / Time No Known Allergies Allergy Verified 01/24/20 22:33 Home Medications Home Medications Medication Instructions Recorded Confirmed Type cholecalciferol (vitamin D3) 50 2,000 units PO DAILY cap 02/28/19 01/24/20 History mcg (2,000 unit) capsule ferrous sulfate 325 mg (65 mg 325 mg PO BID #180 tab 02/28/19 01/24/20 History iron) tablet multivitamin 1 tab PO DAILY 02/28/19 01/24/20 History levothyroxine 50 mcg tablet 50 mcg PO DAILY #90 tab 08/19/19 01/24/20 Rx omeprazole 20 mg capsule,delayed 20 mg PO BID #180 cap 08/19/19 01/24/20 Rx release acetaminophen [Tylenol Arthritis 1,300 mg PO QAM 01/24/20 01/24/20 History Pain] Patient History Medical History Acute renal failure Basal cell carcinoma History of actinic keratosis History of colon cancer Pneumonia Urinary frequency Weakness Surgical History History of colon surgery History of colonoscopy History of inguinal hernia repair, bilateral Family History Father , Age 72 No problems noted. Mother , Age 82 No problems noted. 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 Beliefs That Will Affect Care: None marital status: / Current Living Situation: Alone current occupational status: retired Feels Safe at Home: Yes Smoking Status: Former smoker Age Started Using Tobacco: 18 ; Age Quit Using Tobacco: 42 ; Do You Dip or Chew Tobacco: No ; Hx Alcohol Use: No Hx Substance Use: No Review of Systems Review of Systems: All systems reviewed & are unremarkable except as noted in HPI & below Physical Exam Constitutional: WD/WN, vitals as above no acute distress and not ill appearing Eyes: PERRL, conjunctivae normal, anicteric sclerae EOM intact bilaterally ENMT: external ear and nose normal, oropharynx normal Ears: no hearing impairment Neck: trachea midline, no thyromegaly Respiratory: normal respiratory effort; no respiratory distress and does not use accessory muscles Cardiovascular: Rate/Rhythm: regular rate and regular rhythm Gastrointestinal (Abdomen): Soft with mild right upper quadrant tenderness. No guarding rebound or rigidity. Skin: no rashes, warm and dry Psychiatric: Orientation: alert, oriented x 3 and cooperative Results & Data Vital Signs (Past 12 Hours) Vital Signs Temp Pulse Pulse Resp BP BP Pulse Ox 01/25/20 07:39 36.7 C 53 L 16 119/51 L 95 01/25/20 02:07 36.9 C 74 18 107/54 L 96 01/25/20 01:31 22 101/88 01/25/20 01:30 134 H 25 H 01/25/20 01:20 69 23 01/25/20 01:15 69 25 H 131/61 01/25/20 01:10 67 21 01/25/20 01:01 72 23 01/25/20 01:00 72 22 134/78 01/25/20 00:50 70 23 01/25/20 00:45 77 24 134/69 01/25/20 00:40 77 29 H 01/25/20 00:31 74 24 01/25/20 00:30 76 19 124/61 01/25/20 00:20 73 20 01/25/20 00:15 82 23 122/67 01/25/20 00:10 74 23 01/25/20 00:01 76 20 01/25/20 00:00 75 21 136/73 01/24/20 23:50 79 20 01/24/20 23:46 78 23 128/61 01/24/20 23:40 85 23 01/24/20 23:31 86 26 H 01/24/20 23:30 76 20 135/56 L 01/24/20 23:20 84 24 01/24/20 23:15 80 22 128/60 01/24/20 23:10 18 01/24/20 23:00 79 25 H 130/55 L 01/24/20 22:50 82 12 01/24/20 22:45 82 20 140/57 L 01/24/20 22:42 82 16 133/57 L 95 01/24/20 22:40 85 24 PG Care Time/CCT Total # of Minutes Spent Total Time Spent with Patient: Total time spent is greater than 50% in coordination of care (as documented) at patient's floor/unit and/or counseling patient: Coding Level of Care Code 24339 Initial Inpt Care Lvl 3 Diagnoses Elevated bilirubin R17 Choledocholithiasis K80.50
--- NOTE | 2020-01-25 15:00 | Electrocardiogram Report ---
Test Reason : Blood Pressure : / mmHG Vent. Rate : 109 BPM Atrial Rate : 109 BPM P-R Int : 186 ms QRS Dur : 082 ms QT Int : 346 ms P-R-T Axes : 063 012 058 degrees QTc Int : 465 ms Poor data quality, interpretation may be adversely affected Sinus tachycardia with Premature supraventricular complexes and with occasional Premature ventricular complexes Nonspecific ST and T wave abnormality Abnormal ECG When compared with ECG of 17-NOV-2017 18:12, Premature ventricular complexes are now Present Premature supraventricular complexes are now Present Vent. rate has increased BY 49 BPM Confirmed by Hesham Rodriguez ([id number]) on 01/25/2020 2:59:53 PM Referred By: Arron Austin Confirmed By:Hesham Rodriguez
--- NOTE | 2020-01-25 15:19 | Anesthesiology Consultation ---
Date of Service January 25, 2020 Assessment & Plan Chart Review Chart Review: Acceptable Risk for Surgery and Patient NOT seen in Pre Admission Testing Consults Requested none ASA ASA4 Proposed Anesthesia Anesthesia Type: General Risk / Benefits Reviewed With: PT / POA / Parent / Guardian, Accepts Plan and Informed Consent Obtained Additional Comments: covid test-negative History Surgery Operation Date: 01/25/20 07:00 Proposed Procedures p Endoscopic Retrograde Cholangiopancreatogram - Shilo Jaime MD Operation Date: 01/26/20 12:25 Proposed Procedures p Laparoscopic Cholecystectomy - Edgar Kline DO Height/Weight Height: 6 ft Weight: 85 kg Allergies Allergy/AdvReac Type Severity Reaction Status Date / Time No Known Allergies Allergy Verified 01/24/20 22:33 Medications Home Medications Medication Instructions Recorded Confirmed Last Taken cholecalciferol (vitamin D3) 50 2,000 units PO DAILY cap 02/28/19 01/24/20 Unknown mcg (2,000 unit) capsule ferrous sulfate 325 mg (65 mg 325 mg PO BID #180 tab 02/28/19 01/24/20 Unknown iron) tablet multivitamin 1 tab PO DAILY 02/28/19 01/24/20 Unknown levothyroxine 50 mcg tablet 50 mcg PO DAILY #90 tab 08/19/19 01/24/20 Unknown omeprazole 20 mg capsule,delayed 20 mg PO BID #180 cap 08/19/19 01/24/20 Unknown release acetaminophen [Tylenol Arthritis 1,300 mg PO QAM 01/24/20 01/24/20 Unknown Pain] Active Medications Generic Name Dose Route Start Last Admin Trade Name Freq PRN Reason Stop Dose Admin Enoxaparin Sodium 30 mg 01/25/20 09:00 01/25/20 08:12 Lovenox SQ 02/24/20 08:59 30 mg QAM DARIAN Administration Famotidine 20 mg/ Syringe 5 mls @ 2.5 mls/min 01/25/20 02:26 01/25/20 08:17 IV 02/24/20 02:25 2.5 mls/min BID DARIAN Administration Piperacillin Sod/Tazobactam 115 mls @ 28.75 mls/hr 01/25/20 04:00 01/25/20 14:29 Sod 3.375 gm/ Dextrose IV 02/04/20 03:59 Infused Q8H DARIAN Infusion Protocol Lactated Ringer's 1,000 mls @ 150 mls/hr 01/25/20 09:15 01/25/20 14:00 Lr IV 02/24/20 09:14 150 mls/hr .Q6H40M DARIAN Infusion Ioversol 94 ml 01/24/20 21:46 01/24/20 21:46 Optiray 320 100ml IV 01/28/20 21:45 94 ml ONCE PRN Administration Interaction Checking NPO Date Last Intake of Fluids: 01/24/20 Time Last Intake of Fluids: 13:55 Date Last Intake of Solids: 01/24/20 Time Last Intake of Solids: 20:00 Past Medical History Medical History Acute renal failure Basal cell carcinoma History of actinic keratosis History of colon cancer Pneumonia Urinary frequency Weakness Exercise / Class Metabolic Activity III < 4 Walking/Shop/Light housework Past Family History Family History Father , Age 72 No problems noted. Mother , Age 82 No problems noted. Family/Other Prostate cancer Past Surgical History Surgical History History of colon surgery History of colonoscopy History of inguinal hernia repair, bilateral Past Anesthesia History No Hx of Anesthesia Complications and No Family Hx of Anesthesia Complications History of PONV No Hx of PONV and No Hx of Motion Sickness Social History Smoking Status: Former smoker Do You Dip or Chew Tobacco: No Hx Alcohol Use: No Hx Substance Use: No Physical Exam Vital Signs Last Vital Signs Temp 37.3 C 01/25/20 14:40 Pulse 56 L 01/25/20 14:40 Resp 16 01/25/20 14:40 BP 128/60 01/25/20 14:40 Pulse Ox 95 01/25/20 14:40 Constitutional not obese ENMT Mouth: + dentition abnormality and + edentulous Thyromental Distance: > or= 3.5 Finger Breadths Mallampati Class: II Neck normal visual inspection and trachea midline; neck extension not limited Respiratory normal respiratory effort Auscultation: lungs clear to auscultation bilaterally Cardiovascular Rate/Rhythm: regular rate and regular rhythm Heart Sounds: no murmur Vessels: no carotid bruit Musculoskeletal Spine: normal cervical ROM Extremities: extremities normal to inspection Neurologic moves all extremities Motor/Sensory: no sensory deficit Psychiatric Orientation: alert and oriented x 3 Testing Laboratory Results 01/24/20 21:04 01/24/20 21:04 Urine Color Tabby 01/25/20 05:20 Urine Appearance Clear (Clear) 01/25/20 05:20 Urine pH 5.5 (4.5-7.5) 01/25/20 05:20 Ur Specific [place] 1.015 (1.000-1.030) 01/25/20 05:20 Urine Protein 1+ (Negative) H 01/25/20 05:20 Urine Glucose (UA) Negative (Negative) 01/25/20 05:20 Urine Ketones Negative (Negative) 01/25/20 05:20 Urine Nitrite Negative (Negative) 01/25/20 05:20 Ur Leukocyte Esterase Negative (Negative) 01/25/20 05:20 Urine RBC 0-4 /hpf (0-4) 01/25/20 05:20 Urine WBC 0-5 /hpf (0-5) 01/25/20 05:20 Ur Epithelial Cells 5-10 /lpf (0-5) H 01/25/20 05:20 01/24/20 21:04 Aerobic Blood Culture - Preliminary Blood Gram negative bacilli Anaerobic Blood Culture - Preliminary Gram negative bacilli Electrocardiogram Date: 01/24/20 Findings: + ST @ (at 109 w/ P svc's and PVC's; NS ST T wave changes)
--- NOTE | 2020-01-25 15:19 | History & Physical Bridge Note ---
Date of Service January 25, 2020 History & Physical Bridge Note I have examined the patient, reviewed the History & Physical and in the interval since the performance of the History & Physical I have noted the following changes of clinical significance: no changes noted
[2020-01-25] MEDS ORDERED: fentaNYL citrate 100 MCG/2 ML VIAL ONE (15:22)
[2020-01-25] MEDS ORDERED: ePHEDrine sulfate 50 MG/ML SYR ONE (16:06)
[2020-01-25] MEDS ORDERED: LARYING-O-JET KIT (LTA) ONE (16:06)
[2020-01-25] MEDS ORDERED: SUCCINYLCHOLINE CHLORIDE 20 MG/ML 10 ML VIAL IV ONE (16:06)
[2020-01-25] MEDS ORDERED: LIDOCAINE HCL 2% 2 ML VIAL/AMP(20MG/ML) INFIL ONE (16:06)
[2020-01-25] MEDS ORDERED: ONDANSETRON INJ 2 MG/ML 2 ML VIAL ONE (16:06)
[2020-01-25] MEDS ORDERED: PROPOFOL IV EMULSION 10 MG/ML 20 ML VIAL IV ONE (16:06)
[2020-01-25] MEDS ORDERED: PHENYLEPHRINE 100MCG/ML 5ML SYR ONE (16:06)
--- NOTE | 2020-01-25 16:27 | Operative Report ---
Post Operative Report Pre & Post Diagnosis Operation Date: 01/25/20 07:00 Pre-Op Diagnosis: Common bile duct stone Post-Op Diagnosis: Common bile duct stone Operation Date: 01/26/20 12:25 <No data on this case meets the specified criteria> I identified the patient and participated in the time-out.: Yes Procedure Operation Date: 01/25/20 07:00 Actual Procedures p Endoscopic Retrograde Cholangiopancreatogram - Shilo Jaime MD Operation Date: 01/26/20 12:25 <No data on this case meets the specified criteria> Surgeon Shilo Jaime MD [employer] None Estimated Blood Loss 0 Findings See Below (CBD stones removed, Pus removed, Stent placed) Specimens None Description of Procedure ERCP I attest to the content of the Intraoperative Record and any orders documented therein. Any exceptions are noted below.
--- NOTE | 2020-01-25 16:42 | GI REPORT ---
Patient Name: Freddy Pemberton Procedure Date: 01/25/2020 3:56 PM Date of : 1935 Admit Type: Inpatient Age: 84 Gender: Male Attending MD: Shilo Jaime MD Procedure: ERCP Providers: Shilo Jaime MD Referring MD: Jose Carlos Carnes M.d. Indications: Bile duct stone on Computed Tomogram Scan, For therapy of bile duct stone(s), Elevated liver enzymes Medicines: General Anesthesia Complications: No immediate complications. Estimated Blood Loss: Estimated blood loss: none. Procedure: Pre-Anesthesia Assessment: - Prior to the procedure, a History and Physical was performed, and patient medications, allergies and sensitivities were reviewed. The patient's tolerance of previous anesthesia was reviewed. - The risks and benefits of the procedure and the sedation options and risks were discussed with the patient. All questions were answered and informed consent was obtained. - Patient identification and proposed procedure were verified prior to the procedure by the physician and the nurse. The procedure was verified in the procedure room. - Pre-procedure physical examination revealed no contraindications to sedation. After obtaining informed consent, the scope was passed under direct vision. Throughout the procedure, the patient's blood pressure, pulse, and oxygen saturations were monitored continuously. The Scope was introduced through the mouth, and advanced to the duodenum and used to inject contrast into the bile duct. The ERCP was accomplished without difficulty. The patient tolerated the procedure well. Findings: The quality control associate film was normal. The esophagus was successfully intubated under direct vision. The scope was advanced to a normal major papilla in the descending duodenum without detailed examination of the pharynx, larynx and associated structures, and upper GI tract. The upper GI tract was grossly normal. A 0.035 inch straight standard wire was passed into the biliary tree from the first attempt. The Fusion OMNI sphincterotome was passed over the guidewire and the bile duct was then deeply cannulated. Contrast was injected. I personally interpreted the bile duct images. Ductal flow of contrast was adequate. Image quality was adequate. Contrast extended to the main bile duct. The main bile duct was dilated. The largest diameter was 12 mm. The lower third of the main bile duct contained multiple stones. Biliary sphincterotomy was made with a monofilament traction (standard) sphincterotome using ERBE electrocautery. There was no post-sphincterotomy bleeding. Bile duct orifice was successfully dilated with a 10 mm balloon dilator. The biliary tree was swept with a 15 mm balloon starting at the bifurcation. Four stones were removed. One stone measured 12 mm in diameter. No stones remained. Pus was swept from the duct. One 10 Fr by 4 cm plastic biliary stent with a single external pigtail and a single internal pigtail was placed into the common bile duct. Bile flowed through the stent. The stent was in good position. Indomethacin 100 mg was given via suppository to decrease the risk of post-ERCP pancreatitis (PEP). PD not cannulated. Impression: - Choledocholithiasis was found. Complete removal was accomplished by biliary sphincterotomy, balloon sphincteroplasty and balloon extraction. - Ascending cholangitis was found. - One plastic biliary stent was placed into the common bile duct. Recommendation: - [facility] care. - Avoid aspirin and nonsteroidal anti-inflammatory medicines for 5 days. - Repeat ERCP in 4 weeks to remove stent. - Complete a week course of PO ABx. - Surgery for cholecystectomy. Shilo Jaime MD 01/25/2020 4:41:41 PM This report has been signed electronically. Note Initiated On: 01/25/2020 3:56 PM Number of Addenda: 0 I attest to the content of the Intraoperative Record and orders documented therein, exceptions below {[id number]}
--- NOTE | 2020-01-25 16:43 | Fluoroscopy Report ---
[place] ERCP biliary ductal CLINICAL HISTORY: EXPLORE DUCTS COMPARISON STUDY: None FLUOROSCOPY TIME: 54 seconds NUMBER OF FLUOROSCOPIC IMAGES: 12 FINDINGS: Retrograde opacification of the common bile duct. 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 This is followed by balloon insufflation and sweeping of the common duct. This is followed by placement of a double pigtail stent catheter. IMPRESSION: Common duct choledocholithiasis followed by balloon insufflation and double pigtail stent catheter placement. ACT 112: Negative or not required by law. The above report was generated using voice recognition software. It may contain grammatical, syntax or spelling errors. Electronically signed by: Derek Cedeño M.D. 01/25/2020 4:42 PM
[2020-01-25] MEDS ORDERED: ATROPINE SULFATE 0.1 MG/ML 10ML SYR IV PRN (16:58)
[2020-01-25] MEDS ORDERED: ePHEDrine sulfate 50 MG/ML AMP IV PRN (16:58)
--- NOTE | 2020-01-25 17:03 | Anesthesiology Progress Note ---
Date of Service January 25, 2020 Anesthesia Post Procedure Vital Signs Vital Signs: Temp Pulse Pulse Pulse Resp BP BP 01/25/20 17:00 51 L 19 147/70 H 01/25/20 16:50 48 L 15 146/68 H 01/25/20 16:40 45 L 15 145/70 H 01/25/20 16:34 36.1 C L 48 L 18 128/59 L 01/25/20 14:40 37.3 C 56 L 16 128/60 01/25/20 07:39 36.7 C 53 L 16 119/51 L 01/25/20 02:07 36.9 C 74 18 107/54 L 01/25/20 01:31 22 101/88 01/25/20 01:30 134 H 25 H 01/25/20 01:20 69 23 01/25/20 01:15 69 25 H 131/61 01/25/20 01:10 67 21 01/25/20 01:01 72 23 01/25/20 01:00 72 22 134/78 01/25/20 00:50 70 23 01/25/20 00:45 77 24 134/69 01/25/20 00:40 77 29 H 01/25/20 00:31 74 24 01/25/20 00:30 76 19 124/61 01/25/20 00:20 73 20 01/25/20 00:15 82 23 122/67 01/25/20 00:10 74 23 01/25/20 00:01 76 20 01/25/20 00:00 75 21 136/73 01/24/20 23:50 79 20 01/24/20 23:46 78 23 128/61 01/24/20 23:40 85 23 01/24/20 23:31 86 26 H 01/24/20 23:30 76 20 135/56 L 01/24/20 23:20 84 24 01/24/20 23:15 80 22 128/60 01/24/20 23:10 18 01/24/20 23:00 79 25 H 130/55 L 01/24/20 22:50 82 12 01/24/20 22:45 82 20 140/57 L 01/24/20 22:42 82 16 133/57 L 01/24/20 22:40 85 24 01/24/20 22:31 85 24 01/24/20 22:30 88 20 133/57 L 01/24/20 22:20 87 28 H 01/24/20 22:15 94 H 28 H 142/54 H 01/24/20 22:10 82 22 01/24/20 22:03 91 H 19 130/58 L 01/24/20 22:02 86 18 130/58 L 01/24/20 22:00 85 21 01/24/20 21:55 89 21 01/24/20 21:30 114 H 28 H 01/24/20 21:20 95 H 30 H 01/24/20 21:12 93 H 24 01/24/20 21:08 112 H 24 171/71 H 01/24/20 20:41 36.8 C 77 18 146/74 H Pulse Ox 01/25/20 17:00 96 01/25/20 16:50 100 01/25/20 16:40 100 01/25/20 16:34 95 01/25/20 14:40 95 01/25/20 07:39 95 01/25/20 02:07 96 01/25/20 01:31 01/25/20 01:30 01/25/20 01:20 01/25/20 01:15 01/25/20 01:10 01/25/20 01:01 01/25/20 01:00 01/25/20 00:50 01/25/20 00:45 01/25/20 00:40 01/25/20 00:31 01/25/20 00:30 01/25/20 00:20 01/25/20 00:15 01/25/20 00:10 01/25/20 00:01 01/25/20 00:00 01/24/20 23:50 01/24/20 23:46 01/24/20 23:40 01/24/20 23:31 01/24/20 23:30 01/24/20 23:20 01/24/20 23:15 01/24/20 23:10 01/24/20 23:00 01/24/20 22:50 01/24/20 22:45 01/24/20 22:42 95 01/24/20 22:40 01/24/20 22:31 01/24/20 22:30 01/24/20 22:20 01/24/20 22:15 01/24/20 22:10 01/24/20 22:03 01/24/20 22:02 97 01/24/20 22:00 01/24/20 21:55 01/24/20 21:30 01/24/20 21:20 01/24/20 21:12 01/24/20 21:08 01/24/20 20:41 94 Transfer of Care Handoff Completed per policy Notes Mental Status: alert / awake / arousable Patient Amnestic to Procedure: Yes Nausea / Vomiting: adequately controlled Pain: adequately controlled Airway Patency, RR, SpO2: stable & adequate BP & HR: stable & adequate Hydration State: stable & adequate Anesthetic Complications: no major complications apparent
--- NOTE | 2020-01-25 22:11 | Hospitalist Progress Note ---
Date of Service January 25, 2020 Assessment & Plan (1) Choledocholithiasis: Patient Is an 84-year-old man with a history of resected colon cancer, history hypertension and renal insufficiency admitted to the hospital for abdominal pain found to be secondary to choledocholithiasis and pancreatitis. 1. Choledocholithiasis Total bilirubin elevated at 8.2, AST elevated at 44, ALT 77, alkaline phosphatase [address] abdomen pelvis with IV contrast showed a 13 mm gallstone in the common bile duct at the ampulla as well as several calcified gallstones in the gallbladder measuring up to 7 mm. Diffuse intrahepatic biliary duct dilation is also present along with a common hepatic duct measuring up to 16 mm. S/P ERCP. pain is improved, removed stone. Plan is for cholecystectomy tomorrow. Based on ERCP findings will consider general surgery consult tomorrow will continue current pain control. 2.Pancreatitis Lipase elevated to 3549 Albumin 3.3, calcium 9.3, ionized calcium 1.06 Barring further surgical intervention after ERCP patient may be restarted on a diet as he feels his appetite is returning. 3. Esophagitis Omeprazole 20 mg twice a day at home. Giving IV famotidine 20 mg IV twice a day while patient is n.p.o. 4. Hypothyroidism Takes levothyroxine 50 mcg once a day by mouth holding at the moment while n.p.o. can restart after surgical intervention DVT ppx: lovenox FEN/GI: NPO, IVNS 1.5x maintenance Code Status: Full Code Dispo: Med/Surg (2) Pancreatitis due to common bile duct stone: (3) Elevated bilirubin: (4) Chronic renal insufficiency: Stage IIIb. Due to low GFR/ creatinine clearance. appears to be at baseline will monitor. (5) Hypothyroidism: Admission and Anticipated Discharge Date Admission Date: January 24, 2020 Subjective 84 yo is adrowsy after procedure. States pain is improved. He has no other complaints. Review of Systems Review of Systems: All systems reviewed & are unremarkable except as noted in HPI & below Physical Exam Physical Exam: Constitutional: + thin,drowsy; no acute distress and not ill appearing Eyes: scleral icterus bilaterally Neck: normal visual inspection Respiratory: normal respiratory effort and able to speak in complete sentences; no respiratory distress, no labored breathing, no retractions, no cough and no audible wheezes Auscultation: lungs clear to auscultation bilaterally; no crackles, no rales, no rhonchi and no wheezes Cardiovascular: Rate/Rhythm: regular rate and regular rhythm Heart Sounds: normal S1 and normal S2; no gallop, no murmur and no cardiac rub Vessels: posterior tibial pulses present Extremities: no pedal edema and no edema Gastrointestinal (Abdomen): Inspection/Auscultation: abdomen normal to inspection and normal bowel sounds; abdomen not distended Soft, normal bowel sounds, tender to palpation of the epigastric and right upper quadrant. No guarding or rigidity. Negative Silva sign Results & Data Results & Data ([facility]) Vital Signs (Past 12 Hours) Vital Signs Temp Pulse Pulse Resp BP Pulse Ox 01/25/20 19:08 36.6 C 48 L 24 150/64 H 95 01/25/20 18:06 47 L 149/77 H 01/25/20 17:20 36.5 C 46 L 18 149/67 H 95 01/25/20 17:10 36.7 C 50 L 18 138/67 94 01/25/20 17:00 51 L 19 147/70 H 96 01/25/20 16:50 48 L 15 146/68 H 100 01/25/20 16:40 45 L 15 145/70 H 100 01/25/20 16:34 36.1 C L 48 L 18 128/59 L 95 01/25/20 14:40 37.3 C 56 L 16 128/60 95 PG Care Time/CCT Total # of Minutes Spent Total Time Spent with Patient: Total time spent is greater than 50% in coordination of care (as documented) at patient's floor/unit and/or counseling patient: Coding Level of Care Code 36137 Subseq Hosp Care Lvl 2 Diagnoses Choledocholithiasis K80.50 Pancreatitis due to common bile duct stone K85.90; K80.50 Elevated bilirubin R17 Chronic renal insufficiency N18.9 Hypothyroidism E03.9
--- NOTE | 2020-01-25 23:46 | Billing Data ---
Date of Service January 25, 2020 Coding Level of Care Code 57349 Initial Inpt Care Lvl 2
[2020-01-26] MEDS: PIPERACILLIN/TAZOBACTAM 3.375 GM in DEXTROSE 5% 100 ML IV SCH ×3 (03:31→21:32)
[2020-01-26] MEDS: LACTATED RINGER'S 1,000 ML IV SCH ×3 (05:33→15:02)
[2020-01-26 07:21] LABS: Creatinine Clr Calc Pharmacy 34.6 ml/min; Est GFR (Non-African American) 36.2
--- NOTE | 2020-01-26 07:47 | History & Physical Bridge Note ---
Date of Service January 26, 2020 History & Physical Bridge Note I have examined the patient, reviewed the History & Physical and in the interval since the performance of the History & Physical I have noted the following changes of clinical significance: no changes noted pt seen. feeling much better. no am labs yet. recommend cholecystectomy this admission. discussed risks ( bleeding/infection/injury to another organ or bile ducts, bile leaks, dvt/pe/mi/cva etc....). previously discussed with pt's son ( Demetrio). questions answered. pt agreeable. will proceed with lap/possible open cholecystectomy today.
[2020-01-26] MEDS: FAMOTIDINE 20 MG in SYRINGE 3 ML IV SCH ×2 (08:12→20:20)
[2020-01-26] MEDS: ENOXAPARIN INJ 30 MG/0.3 ML SYR SQ SCH (08:19)
--- NOTE | 2020-01-26 08:48 | Gastroenterology Progress Note ---
Date of Service January 26, 2020 Assessment & Plan (1) Pancreatitis due to common bile duct stone: Pt is a 84 y/o male admitted currently for gallstones pancreatitis. CT abd/pelvis showed cholelithiasis, w stone in distal CBD as well. He is s/p ERCP on 01/24 w choledocholithiasis removal, biliary sphincterectomy and biliary stent placement. Ascending cholangitis found. He is doing quite well. AM labs pending - F/U CBC, CMP this AM - NPO for planned cholecystectomy today by Dr. Kline - Continue IV antibx for cholangitis; may convert to PO to complete 1 week on DC - IVF support while NPO - Avoid NSAIDs and ASA 5 days after sphincterectomy - Repeat ERCP for biliary stent removal in about 4 weeks' time; GI will help schedule - Gi will sign off; pls recall prn Admission and Anticipated Discharge Date Admission Date: January 24, 2020 Supervising Physician Co-Signing Physician Notes I have personally seen and examined the patient with JUNI Godinez. Her note reflects my exam and findings. I agree with her impression and plan. For palma today. No clinical signs of pancreatitis. Tin Senior M.D. Subjective Pt feels well, denies any issues overnight. Denies CP, SOB, abd pain, n/v. Hasn't been passing much flatus and no BMs. He is NPO for cholecystectomy today Review of Systems Review of Systems: All systems reviewed & are unremarkable except as noted in HPI & below Physical Exam Constitutional: WD/WN, vitals as above well groomed, cooperative and comfortable Eyes: + scleral abnormality (mild icterus), PERRL and EOM intact bilaterally ENMT: external ear and nose normal, oropharynx normal Respiratory: normal respiratory effort, lungs clear to auscultation Cardiovascular: RRR, no murmur, no edema Gastrointestinal (Abdomen): normal bowel sounds, soft, nontender, no hepatosplenomegaly Skin: no rashes, warm and dry + jaundice Psychiatric: A+Ox3, euthymic affect Lymphatic: no lymphedema Results & Data ([facility]) Vital Signs (Past 12 Hours) Vital Signs Temp Pulse Resp BP Pulse Ox 01/26/20 07:30 36.4 C L 53 L 16 146/76 H 92 01/26/20 03:27 36.6 C 46 L 18 148/71 H 92 01/26/20 00:30 36.5 C 44 L 18 125/66 95
[2020-01-26 08:56] LABS: Basophils # (auto) 0.02 K/uL (0-0.2); Basophils % (auto) 0.4 %; Eosinophils # (auto) 0.39 K/uL (0-0.5); Hematocrit (blood only) 33.1 % (42-52); Hemoglobin 11.1 g/dL (14.0-18.0); Immature Granulocytes # (auto) 0.04 K/uL (0.00-0.02); Immature Granulocytes % (auto) 0.7 %; Lymphocytes # (auto) 0.86 K/uL (1.2-3.4); Lymphocytes % (auto) 15.4 %; Mean Corpuscular Hemoglobin 31.3 pg (25-34); Mean Corpuscular Volume 93.2 fL (80-100); Mean Platelet Volume 10.8 fL (7.4-10.4); Monocytes # (auto) 0.74 K/uL (0.11-0.59); Monocytes % (auto) 13.3 %; Neutrophils # (auto) 3.53 K/uL (1.4-6.5); Neutrophils % (auto) 63.2 %; Platelet Count 202 K/uL (130-400); RDW Coefficient of Variation 13.7 % (11.5-14.5); RDW Standard Deviation 47.1 fL (36.4-46.3); Red Blood Count 3.55 M/uL (4.7-6.1); White Blood Count 5.58 K/uL (4.8-10.8)
[2020-01-26 08:58] LABS: Mean Corpuscular Hgb Conc 33.5 g/dL (32-36)
[2020-01-26 09:18] LABS: Albumin Level 2.4 gm/dl (3.4-5.0); BUN Creatinine Ratio 16.5 (10-20); Calcium 8.1 mg/dl (8.5-10.1); Creatinine Clr Calc Pharmacy 34.6 ml/min; Est GFR (Non-African American) 36.2; Potassium 3.6 mmol/L (3.5-5.1)
[2020-01-26 09:32] LABS: Albumin Globulin Ratio 0.8 (0.9-2); Bilirubin,Total 3.5 mg/dl (0.2-1); Globulin 3.1 gm/dl (2.5-4.0); Total Protein 5.5 gm/dl (6.4-8.2)
[2020-01-26] MEDS ORDERED: LIDOCAINE/EPINEPHRINE 1% 20 ML VIAL ONE (10:09)
[2020-01-26] MEDS ORDERED: ONDANSETRON INJ 2 MG/ML 2 ML VIAL IV PRN (10:12)
[2020-01-26] MEDS ORDERED: fentaNYL citrate 100 MCG/2 ML VIAL IV PRN (10:12)
[2020-01-26] MEDS ORDERED: ATROPINE SULFATE 0.1 MG/ML 10ML SYR IV PRN (10:12)
[2020-01-26] MEDS ORDERED: ePHEDrine sulfate 50 MG/ML AMP IV PRN (10:12)
--- NOTE | 2020-01-26 10:16 | History & Physical Bridge Note ---
Date of Service January 26, 2020 History & Physical Bridge Note I have examined the patient, reviewed the History & Physical and in the interval since the performance of the History & Physical I have noted the following changes of clinical significance: no changes noted pt examined procedure explained to pt including risks and complication
[2020-01-26] MEDS ORDERED: MIDAZOLAM HCL 1 MG/ML 2ML VIAL ONE (10:25)
[2020-01-26] MEDS ORDERED: fentaNYL citrate 100 MCG/2 ML VIAL ONE ×3 (10:28→11:50)
[2020-01-26] MEDS ORDERED: GLYCOPYRROLATE 0.2 MG/ML VIAL ONE (10:31)
[2020-01-26] MEDS ORDERED: ROCURONIUM BROMIDE 10 MG/ML 5 ML VIAL IV ONE ×7 (10:31→12:55)
[2020-01-26] MEDS ORDERED: ONDANSETRON INJ 2 MG/ML 2 ML VIAL ONE ×2 (10:31→13:01)
[2020-01-26] MEDS ORDERED: PROPOFOL IV EMULSION 10 MG/ML 20 ML VIAL IV ONE ×2 (10:31→11:53)
[2020-01-26] MEDS ORDERED: LIDOCAINE HCL 2% 2 ML VIAL/AMP(20MG/ML) INFIL ONE (10:31)
[2020-01-26] MEDS ORDERED: NEOSTIGMINE METHYLSULFATE 5 MG/5 ML SYR ONE (10:31)
[2020-01-26] MEDS ORDERED: DEXAMETHASONE SOD INJ 4 MG/ML VIAL ONE ×2 (10:31→12:55)
[2020-01-26] MEDS ORDERED: OPTIRAY 300 IV PRN (11:17)
--- NOTE | 2020-01-26 12:46 | Fluoroscopy Report ---
INTRAOPERATIVE CHOLANGIOGRAM HISTORY: Post cholecystectomy. FLUOROSCOPY TIME: 6 seconds. Single fluoroscopic spot image of the right upper quadrant. FINDINGS: Fluoroscopy was provided for an intraoperative cholangiogram status post cholecystectomy. C ontrast was injected through the cystic duct remnant. Common bile duct is obscured by a stent. This s tent may extend into the cystic duct. However, this is difficult to confirm due to the lack of contra st within the common bile duct. IMPRESSION: Fluoroscopy provided for an intraoperative cholangiogram status post cholecystectomy. The re is a common bile duct stent identified. The proximal portion of the stent may reside within the cy stic duct but is difficult to confirm due to the inadequate contrast at this location. ACT 112: Negative or not required by law. Electronically signed by: Singh Villegas M.D. 01/26/2020 12:45 PM
--- NOTE | 2020-01-26 12:54 | Post Operative Brief Note ---
PG Immediate Post Op with CF Date of Surgery January 26, 2020 Pre & Post Diagnosis Operation Date: 01/25/20 07:00 Pre-Op Diagnosis: Common bile duct stone Post-Op Diagnosis: Common bile duct stone Operation Date: 01/26/20 09:35 Pre-Op Diagnosis: abdominal pain Post-Op Diagnosis: abdominal pain I identified the patient and participated in the time-out.: Yes Procedure Operation Date: 01/25/20 07:00 Actual Procedures p Endoscopic Retrograde Cholangiopancreatogram - Shilo Jaime MD Operation Date: 01/26/20 09:35 Actual Procedures p Laparoscopic Cholecystectomy with Cholangiogram, Lysis of Extensive Adhesions - Bello Huffman MD Surgeon Bello Hufmfan MD Machine Sand Mixer None Estimated Blood Loss 150 Findings Consistent with Post-Op Diagnosis Specimens Specimen Description: A. gallbladder Culture#1 gallbladder contents for aerobic, anaerobic, gram stain Drains Jesus Drain
[2020-01-26] MEDS ORDERED: LABETALOL HCL IV 5 MG/ML 20ML IV ONE (12:55)
--- NOTE | 2020-01-26 13:09 | Operative Report ---
PG Post Operative Report Pre & Post Diagnosis Operation Date: 01/25/20 07:00 Pre-Op Diagnosis: Common bile duct stone Post-Op Diagnosis: Common bile duct stone Operation Date: 01/26/20 09:35 Pre-Op Diagnosis: abdominal pain Post-Op Diagnosis: abdominal pain I identified the patient and participated in the time-out.: Yes Procedure Operation Date: 01/25/20 07:00 Actual Procedures p Endoscopic Retrograde Cholangiopancreatogram - Shilo Jaime MD Operation Date: 01/26/20 09:35 Actual Procedures p Laparoscopic Cholecystectomy with Cholangiogram, Lysis of Extensive Adhesions - Bello Huffman MD The patient was brought into the operating room theater general endotracheal anesthesia the abdomen was prepped Betadine solution and properly draped patient has systemic antibiotics on board patient was identified timeout was had made a small incision vertically through an old scar since patient had midline incision extending from the sternum down to the pubis with previous surgeries putting a colon and hiatal hernia repair with an incision about it half an inch long dissected down to the fascia and direct visualization we entered the peritoneal cavity using 0 Vicryl suture stay sutures we felt we were inside the peritoneal cavity we usually blunt dissection with our finger but as we put the 5 mm trocar insufflated CO2 we found ourselves in preperitoneal area at this point I attempted again to enter the same way try to identify the peritoneum but it was quite difficult. This point I elected to make another incision about an inch and a half way to the right the deep and subcutaneous tissue in a similar fashion went to the rectus try to enter the peritoneal cavity and this avenue also and we were met with adhesions. There was very difficult to enter therefore we backed out again. At this time right upper quadrant anterior axillary line site we made an incision subcostally probably an inch long deepened through subcutaneous tissue we entered the anterior rectus then dissected inside the rectus until we were able to elevate the posterior peritoneum small opening there was made we controlled this with 0 Vicryl suture #5 trocar was inserted CO2 insufflated with the camera at this point we were able to see that we were in the peritoneal cavity the patient has significant adhesions from the epigastric area and as we went over the camera we saw significant adhesions of the midline incision. This point on direct visualization I was placed a 5 mm epigastric trocar with preemptive local analgesic on direct visualization and placing the camera the area with visualize her official entry our initial entry in the right upper quadrant there were no adhesions in that area identified we then maneuvered these 2 trochars to try to identify her initial entry site to see if we could take down the adhesions and also to create an opening to put a 5 mm trocar in that area would be needed to do a needed to place another 5 mm subcostally which we did on direct visualization the using the camera right upper quadrant port and dissected down in the midline were able to identify mostly fibrous adhesion the peritoneum and omentum was adherent to the anterior abdominal wall we could see her initial entry site with a 5 mm trocar and there was no evidence of any injury or bowel in that area. At this point we were able to place a 5 mm trocar under direct visualization through the initial incision that we made in the midline placing the camera there we started working around the right upper quadrant the gallbladder was identified as significant edema and significant amount of fibrinous tissue most when we were able to take by blunt dissection some with we ligated with 5 mm clips. We worked our way down to the neck of the gallbladder the cystic duct was identified it was quite large and we could feel some r esistance in the cystic duct we felt that probably the biliary stent that was placed had gone into the cystic duct we had seen that preoperatively on an ERCP but at this point we were able to identify the anterior and posterior branches of the cystic artery superiorly and divided them I went around the cystic duct right at the takeoff from the gallbladder at this point this is the duct was larger and changed the 5 mm epigastric to a 12 mm so we can use the larger clips we took a clip right at the takeoff of the cystic duct a small opening cystic duct was made a #4 urethral catheter transversing abdominal wall was positioned in the cystic duct which met some resistance multiple times finally were able to get an angiogram that showed that we appear to be away from the biliary stent. At this point we then choked up on the cystic duct a little bit more and actually we can see the stent through the intact wall of the cystic duct we then clipped the cystic duct just inferior to where we entered with a Cholangiocath and as we had divided there was a stone and there that actually had kept us from doing a cholangiogram completely. We doubly clipped the cystic duct and took out the gallbladder in antegrade fashion leaving as much posterior peritoneum was possible. Hemostasis was checked and appears satisfactory we took the gallbladder through an Endopouch through the epigastric port this point the subhepatic suprahepatic area was checked for stasis appears satisfactory I elected to drain this area with a 19 round Jesus drain after we closed the right upper quadrant lateral port site in multiple layers using 2-0 Vicryl sutures. This was our initial entry site into the abdomen. We closed the peritoneum and then closed the external Bleich fascia with interrupted 2-0 Vicryl sutures. We at this point brought the Jesus drain through the epigastric area took it out in the subcostal trocar site touches skin edge with 2-0 silk we positioned the catheter underneath the liver. We placed the camera looked like that epigastric port there was no bleeding from that entry site nor was any bleeding from the right upper quadrant or any epic umbilical area individual trochars removed the last umbilical trocar fascial stitch of 2-0 Vicryl was used for the epigastric area interrupted silk 203 0 Vicryl subcutaneously to close the incision cystic area Vicryl and Steri-Strips applied procedure was tolerated well by the patient estimated blood loss 150 cc addendum Barney valenzuela was present throughout the procedure and helped with exposure retraction camera work Surgeon Bello Huffman MD Cutter Inspector None Estimated Blood Loss 150 Findings Consistent with Post-Op Diagnosis Specimens gallbladder and contents Description of Procedure [email or web address] I attest to the content of the Intraoperative Record and any orders documented therein. Any exceptions are noted below.
--- NOTE | 2020-01-26 14:04 | Anesthesiology Progress Note ---
Date of Service January 26, 2020 Anesthesia Post Procedure Vital Signs Vital Signs: Temp Pulse Pulse Resp BP Pulse Ox 01/26/20 13:55 46 L 16 129/68 96 01/26/20 13:45 36.4 C L 48 L 16 127/65 96 01/26/20 13:35 48 L 16 139/66 96 01/26/20 13:25 47 L 16 140/65 98 01/26/20 13:15 36.1 C L 60 12 142/71 H 97 01/26/20 10:09 36.6 C 58 L 18 132/76 95 01/26/20 07:30 36.4 C L 53 L 16 146/76 H 92 01/26/20 03:27 36.6 C 46 L 18 148/71 H 92 01/26/20 00:30 36.5 C 44 L 18 125/66 95 01/25/20 19:08 36.6 C 48 L 24 150/64 H 95 01/25/20 18:06 47 L 149/77 H 01/25/20 17:20 36.5 C 46 L 18 149/67 H 95 01/25/20 17:10 36.7 C 50 L 18 138/67 94 01/25/20 17:00 51 L 19 147/70 H 96 01/25/20 16:50 48 L 15 146/68 H 100 01/25/20 16:40 45 L 15 145/70 H 100 01/25/20 16:34 36.1 C L 48 L 18 128/59 L 95 01/25/20 14:40 37.3 C 56 L 16 128/60 95 Transfer of Care Handoff Completed per policy Notes Mental Status: alert / awake / arousable Patient Amnestic to Procedure: Yes Nausea / Vomiting: adequately controlled Pain: adequately controlled Airway Patency, RR, SpO2: stable & adequate BP & HR: stable & adequate Hydration State: stable & adequate Anesthetic Complications: no major complications apparent
[2020-01-26] MEDS ORDERED: MoRPHine SULFATE 4 MG/ML 1 ML CARP\\VIAL IV PRN (14:24)
[2020-01-26] MEDS: MoRPHine SULFATE 2 MG/ML CARP IV PRN (15:36)
--- NOTE | 2020-01-26 22:30 | Hospitalist Progress Note ---
Date of Service January 26, 2020 Assessment & Plan (1) Choledocholithiasis: Patient Is an 84-year-old man with a history of resected colon cancer, history hypertension and renal insufficiency admitted to the hospital for abdominal pain found to be secondary to choledocholithiasis and pancreatitis. 1. Choledocholithiasis On admission: Total bilirubin elevated at 8.2, AST elevated at 44, ALT 77, alkaline phosphatase [address] abdomen pelvis with IV contrast showed a 13 mm gallstone in the common bile duct at the ampulla as well as several calcified gallstones in the gallbladder measuring up to 7 mm. Diffuse intrahepatic biliary duct dilation is also present along with a common hepatic duct measuring up to 16 mm. -Currently patient is feeling better. S/P ERCP. pain is improved, removed stone. Plan is for cholecystectomy today. will continue current pain control. 2.Pancreatitis Lipase elevated to 3549 Albumin 3.3, calcium 9.3, ionized calcium 1.06 having cholescytectomy later today. 3. Esophagitis Omeprazole 20 mg twice a day at home. Giving IV famotidine 20 mg IV twice a day while patient is n.p.o. 4. Hypothyroidism Takes levothyroxine 50 mcg once a day by mouth holding at the moment while n.p.o. can restart after surgical intervention DVT ppx: lovenox FEN/GI: NPO, IVNS 1.5x maintenance Code Status: Full Code Dispo: Med/Surg (2) Pancreatitis due to common bile duct stone: (3) Elevated bilirubin: (4) Chronic renal insufficiency: Stage IIIb. Due to low GFR/ creatinine clearance. appears to be at baseline will monitor. (5) Hypothyroidism: Admission and Anticipated Discharge Date Admission Date: January 24, 2020 Subjective 84 yo male reports feeling much better this AM. He no longer is having abd. pain today. He is waiting for his cholescystectomy. Review of Systems Review of Systems: All systems reviewed & are unremarkable except as noted in HPI & below Physical Exam Physical Exam: Constitutional: + thin,drowsy; no acute distress and not ill appearing Eyes: scleral icterus bilaterally Neck: normal visual inspection Respiratory: normal respiratory effort and able to speak in complete sentences; no respiratory distress, no labored breathing, no retractions, no cough and no audible wheezes Auscultation: lungs clear to auscultation bilaterally; no crackles, no rales, no rhonchi and no wheezes Cardiovascular: Rate/Rhythm: regular rate and regular rhythm Heart Sounds: normal S1 and normal S2; no gallop, no murmur and no cardiac rub Vessels: posterior tibial pulses present Extremities: no pedal edema and no edema Gastrointestinal (Abdomen): Inspection/Auscultation: abdomen normal to inspection and normal bowel sounds; abdomen not distended Soft, normal bowel sounds, tender to palpation of the epigastric and right upper quadrant. No guarding or rigidity. Negative Silva sign Results & Data Results & Data ([facility]) Vital Signs (Past 12 Hours) Vital Signs Temp Pulse Pulse Resp BP Pulse Ox 01/26/20 17:21 36.7 C 59 L 18 138/62 94 01/26/20 14:15 36.6 C 46 L 18 150/70 H 97 01/26/20 13:55 46 L 16 129/68 96 01/26/20 13:45 36.4 C L 48 L 16 127/65 96 01/26/20 13:35 48 L 16 139/66 96 01/26/20 13:25 47 L 16 140/65 98 01/26/20 13:15 36.1 C L 60 12 142/71 H 97 PG Care Time/CCT Total # of Minutes Spent Total Time Spent with Patient: Total time spent is greater than 50% in coordination of care (as documented) at patient's floor/unit and/or counseling patient: Coding Level of Care Code 59109 Subseq Hosp Care Lvl 2 Diagnoses Choledocholithiasis K80.50 Pancreatitis due to common bile duct stone K85.90; K80.50 Elevated bilirubin R17 Chronic renal insufficiency N18.9 Hypothyroidism E03.9 Time Spent (min) 25
[2020-01-27] MEDS: LACTATED RINGER'S 1,000 ML IV SCH ×2 (00:45→13:02)
[2020-01-27] MEDS: PIPERACILLIN/TAZOBACTAM 3.375 GM in DEXTROSE 5% 100 ML IV SCH ×3 (05:31→22:20)
[2020-01-27 06:24] LABS: Basophils # (auto) 0.02 K/uL (0-0.2); Basophils % (auto) 0.3 %; Eosinophils # (auto) 0.13 K/uL (0-0.5); Eosinophils % (auto) 1.7 %; Hematocrit (blood only) 36.4 % (42-52); Hemoglobin 11.6 g/dL (14.0-18.0); Immature Granulocytes # (auto) 0.06 K/uL (0.00-0.02); Immature Granulocytes % (auto) 0.8 %; Lymphocytes # (auto) 0.77 K/uL (1.2-3.4); Lymphocytes % (auto) 10.2 %; Mean Corpuscular Hemoglobin 30.2 pg (25-34); Mean Corpuscular Hgb Conc 31.9 g/dL (32-36); Mean Corpuscular Volume 94.8 fL (80-100); Mean Platelet Volume 10.6 fL (7.4-10.4); Monocytes # (auto) 1.04 K/uL (0.11-0.59); Monocytes % (auto) 13.8 %; Neutrophils % (auto) 73.2 %; Platelet Count 257 K/uL (130-400); RDW Coefficient of Variation 13.5 % (11.5-14.5); RDW Standard Deviation 46.9 fL (36.4-46.3); Red Blood Count 3.84 M/uL (4.7-6.1); White Blood Count 7.52 K/uL (4.8-10.8)
--- NOTE | 2020-01-27 07:00 | Surgery Progress Note ---
Date of Service January 27, 2020 Assessment & Plan (1) Choledocholithiasis: Patient is first postoperative day status post laparoscopic cholecystectomy cholangiogram had a difficult time entering his abdomen since he had multiple previous surgery but then we were able to proceed laparoscopically At this point will increase his diet decrease his IV fluids increase his activity I suspect he will stay here at least until tomorrow next day [facility] surgeons are covering this weekend Present on Admission?: Yes Subjective Had a fairly good night although complained of some abdominal pain did not have much oral intake last evening Physical Exam Physical Exam: He was asleep when I walked in easily awoke and and oriented x3 The abdomen is softly distended expected discomfort after surgery the dressing on the trocar sites are free of any drainage the Jesus drainage is serous slightly sanguinous nonbilious Urine output has been adequate Results & Data Vital Signs (Past 12 Hours) Vital Signs Temp Pulse Resp BP Pulse Ox 01/27/20 03:58 93 01/27/20 03:43 36.7 C 53 L 20 119/60 95 01/26/20 23:03 36.7 C 50 L 20 113/58 L 95 PG Care Time/CCT Total # of Minutes Spent Total Time Spent with Patient: Total time spent is greater than 50% in coordination of care (as documented) at patient's floor/unit and/or counseling patient: Coding Level of Care Code None Diagnoses Choledocholithiasis K80.50
[2020-01-27 07:02] LABS: Albumin Level 2.3 gm/dl (3.4-5.0); BUN Creatinine Ratio 13.3 (10-20); Bilirubin Direct 1.9 mg/dl (0-0.2); Calcium 8.5 mg/dl (8.5-10.1); Creatinine Clr Calc Pharmacy 35.7 ml/min; Est GFR (African American) 43.6; Est GFR (Non-African American) 37.6
[2020-01-27 07:12] LABS: Bilirubin,Total 2.7 mg/dl (0.2-1); Total Protein 5.7 gm/dl (6.4-8.2)
[2020-01-27] MEDS: ACETAMINOPHEN 1000 MG/100 ML IV IV PRN ×2 (07:44→16:04)
[2020-01-27] MEDS: FAMOTIDINE 20 MG in SYRINGE 3 ML IV SCH ×2 (07:46→22:20)
[2020-01-27] MEDS: MoRPHine SULFATE 2 MG/ML CARP IV PRN ×2 (16:07→22:20)
--- NOTE | 2020-01-27 22:15 | Hospitalist Progress Note ---
Date of Service January 27, 2020 Assessment & Plan (1) Choledocholithiasis: Patient Is an 84-year-old man with a history of resected colon cancer, history hypertension and renal insufficiency admitted to the hospital for abdominal pain found to be secondary to choledocholithiasis and pancreatitis. 1. Choledocholithiasis On admission: Total bilirubin elevated at 8.2, AST elevated at 44, ALT 77, alkaline phosphatase [address] abdomen pelvis with IV contrast showed a 13 mm gallstone in the common bile duct at the ampulla as well as several calcified gallstones in the gallbladder measuring up to 7 mm. Diffuse intrahepatic biliary duct dilation is also present along with a common hepatic duct measuring up to 16 mm. -Currently patient is feeling better. S/P ERCP. S/P cholecystectomy. pain is improved, removed stone. will continue current pain control. -will transition him to Augmentin at discharge. 2.Pancreatitis improved. 3. Esophagitis Omeprazole 20 mg twice a day at home. Giving IV famotidine 20 mg IV twice a day while patient is n.p.o. 4. Hypothyroidism Takes levothyroxine 50 mcg once a day by mouth holding at the moment while n.p.o. can restart after surgical intervention DVT ppx: lovenox FEN/GI: NPO, IVNS 1.5x maintenance Code Status: Full Code Dispo: Med/Surg (2) Pancreatitis due to common bile duct stone: (3) Elevated bilirubin: (4) Chronic renal insufficiency: Stage IIIb. Due to low GFR/ creatinine clearance. appears to be at baseline will monitor. (5) Hypothyroidism: (6) Acute on chronic kidney failure: Creatinine was the highest at 1.8 on admission. This has improved and is now at goal. Likely occurred due to acute pancreatitis. Admission and Anticipated Discharge Date Admission Date: January 24, 2020 Subjective Patient reports feeling well. He has no new complaints. Review of Systems Review of Systems: All systems reviewed & are unremarkable except as noted in HPI & below Physical Exam Physical Exam: Constitutional: awake; no acute distress and not ill appearing Eyes: scleral icterus bilaterally Neck: normal visual inspection Respiratory: normal respiratory effort and able to speak in complete sentences; no respiratory distress, no labored breathing, no retractions, no cough and no audible wheezes Auscultation: lungs clear to auscultation bilaterally; no crackles, no rales, no rhonchi and no wheezes Cardiovascular: Rate/Rhythm: regular rate and regular rhythm Heart Sounds: normal S1 and normal S2; no gallop, no murmur and no cardiac rub Vessels: posterior tibial pulses present Extremities: no pedal edema and no edema Gastrointestinal (Abdomen): Inspection/Auscultation: abdomen normal to inspection and normal bowel sounds/ dry surgical dressing noted; abdomen not distended Soft, normal bowel sounds, non tender to palpation No guarding or rigidity. Negative Silva sign Results & Data Results & Data ([facility]) Vital Signs (Past 12 Hours) Vital Signs Temp Pulse Resp BP Pulse Ox 01/27/20 15:01 36.4 C L 66 19 142/68 H 96 01/27/20 12:22 36.8 C 59 L 16 133/65 92 PG Care Time/CCT Total # of Minutes Spent Total Time Spent with Patient: Total time spent is greater than 50% in coordination of care (as documented) at patient's floor/unit and/or counseling patient: Coding Level of Care Code 37910 Subseq Hosp Care Lvl 2 Diagnoses Choledocholithiasis K80.50 Pancreatitis due to common bile duct stone K85.90; K80.50 Elevated bilirubin R17 Chronic renal insufficiency N18.9 Hypothyroidism E03.9 Acute on chronic kidney failure N17.9; N18.9 Time Spent (min) 25
[2020-01-28 05:53] LABS: Basophils # (auto) 0.05 K/uL (0-0.2); Basophils % (auto) 0.5 %; Eosinophils # (auto) 0.57 K/uL (0-0.5); Eosinophils % (auto) 6.1 %; Hematocrit (blood only) 37.5 % (42-52); Hemoglobin 12.4 g/dL (14.0-18.0); Immature Granulocytes # (auto) 0.34 K/uL (0.00-0.02); Immature Granulocytes % (auto) 3.6 %; Lymphocytes # (auto) 0.88 K/uL (1.2-3.4); Lymphocytes % (auto) 9.4 %; Mean Corpuscular Hemoglobin 31.3 pg (25-34); Mean Corpuscular Hgb Conc 33.1 g/dL (32-36); Mean Corpuscular Volume 94.7 fL (80-100); Mean Platelet Volume 10.3 fL (7.4-10.4); Monocytes # (auto) 1.18 K/uL (0.11-0.59); Monocytes % (auto) 12.6 %; Neutrophils # (auto) 6.34 K/uL (1.4-6.5); Neutrophils % (auto) 67.8 %; Platelet Count 290 K/uL (130-400); RDW Coefficient of Variation 13.5 % (11.5-14.5); RDW Standard Deviation 46.6 fL (36.4-46.3); Red Blood Count 3.96 M/uL (4.7-6.1); White Blood Count 9.36 K/uL (4.8-10.8)
[2020-01-28 06:20] LABS: BUN Creatinine Ratio 12.4 (10-20); Calcium 8.3 mg/dl (8.5-10.1); Est GFR (Non-African American) 40.6; Potassium 3.6 mmol/L (3.5-5.1)
[2020-01-28] MEDS: PIPERACILLIN/TAZOBACTAM 3.375 GM in DEXTROSE 5% 100 ML IV SCH ×3 (06:34→22:30)
[2020-01-28] MEDS: LACTATED RINGER'S 1,000 ML IV SCH (06:35)
[2020-01-28] MEDS: FAMOTIDINE 20 MG in SYRINGE 3 ML IV SCH ×2 (09:20→20:18)
--- NOTE | 2020-01-28 09:22 | Surgery Progress Note ---
Date of Service January 28, 2020 Assessment & Plan (1) Choledocholithiasis: The Jesus drain was removed dressing was applied to the exit site as stated the other trocar sites to the Steri-Strips were still intact with no obvious drainage From my point of view the patient could be discharged home today I gave him instructions not to lift anything heavier than 10 pounds and no driving for 1 week he may shower and we will see him back in the office in 1 week to call for make an appointment Present on Admission?: Yes Subjective Feels much better today less abdominal discomfort he ate well yesterday Physical Exam Physical Exam: He is alert coherent and in no distress When I saw him this morning he was sitting up side of bed eating a regular diet without any difficulty Came back a few hours later where he is ready to get up and walk the abdomen was benign the trocar sites are healing fine the Jesus drainage was serosanguineous nonbilious Results & Data Vital Signs (Past 12 Hours) Vital Signs Temp Pulse Resp BP Pulse Ox 01/28/20 07:35 37.0 C 61 16 136/69 92 01/28/20 00:31 93 01/28/20 00:01 36.8 C 63 18 149/74 H 90 lab noted BUN and creatinine are trending down hemoglobin stable no white count PG Care Time/CCT Total # of Minutes Spent Total Time Spent with Patient: Total time spent is greater than 50% in coordination of care (as documented) at patient's floor/unit and/or counseling patient: Coding Level of Care Code None Diagnoses Choledocholithiasis K80.50
[2020-01-28] MEDS ORDERED: POLYETHYLENE (MIRALAX) 17 GM PACK PO ONE ×2 (12:33→16:47)
[2020-01-28] MEDS ORDERED: ACETAMINOPHEN 325 MG TAB PO PRN (14:06)
--- NOTE | 2020-01-28 16:22 | XRay Report ---
[facility]UB CLINICAL HISTORY: No BM in 5 days COMPARISON STUDY: CT of the abdomen and pelvis January 24, 2020. FINDINGS: Biliary stent is in place. There are cholecystectomy clips. Left basilar airspace opacity i s noted. There are are several loops of moderately dilated small bowel. There is a large amount of st ool within the left colon. There is a small amount stool within the rectum. IMPRESSION: 1. Large amount of stool within the left colon. Small amount of stool within the rectum. 2. Multiple loops of moderately dilated small bowel. The findings may reflect a small bowel obstructi on or ileus. 3. Left lower lung airspace opacity. ACT 112: Negative or not required by law. Electronically signed by: Bennie Hess M.D. 01/28/2020 4:21 PM
--- NOTE | 2020-01-28 22:47 | Hospitalist Progress Note ---
Date of Service January 28, 2020 Assessment & Plan (1) Choledocholithiasis: Patient Is an 84-year-old man with a history of resected colon cancer, history hypertension and renal insufficiency admitted to the hospital for abdominal pain found to be secondary to choledocholithiasis and pancreatitis. 1. Choledocholithiasis On admission: Total bilirubin elevated at 8.2, AST elevated at 44, ALT 77, alkaline phosphatase [address] abdomen pelvis with IV contrast showed a 13 mm gallstone in the common bile duct at the ampulla as well as several calcified gallstones in the gallbladder measuring up to 7 mm. Diffuse intrahepatic biliary duct dilation is also present along with a common hepatic duct measuring up to 16 mm. -Currently patient is feeling better. S/P ERCP. S/P cholecystectomy. pain is improved, removed stone. will continue current pain control. -will transition him to Augmentin at discharge. 2.Pancreatitis improved. 3. Esophagitis Omeprazole 20 mg twice a day at home. Giving IV famotidine 20 mg IV twice a day while patient is n.p.o. 4. Hypothyroidism Takes levothyroxine 50 mcg once a day by mouth holding at the moment while n.p.o. can restart after surgical intervention 5.Constipation NO Bm for days, no signs of peritonitis. Ordered miralax. will obtain xray (KUB) will hold opiates. will place on tylenol. Update: Patient vomited, will place NPO. cannot discharge patient due to possiilty of not tolerating antibiotics as well as possible ileus. DVT ppx: lovenox FEN/GI: NPO, IVNS 1.5x maintenance Code Status: Full Code Dispo: Med/Surg (2) Pancreatitis due to common bile duct stone: (3) Elevated bilirubin: (4) Chronic renal insufficiency: Stage IIIb. Due to low GFR/ creatinine clearance. appears to be at baseline will monitor. (5) Hypothyroidism: (6) Acute on chronic kidney failure: Creatinine was the highest at 1.8 on admission. This has improved and is now at goal. Likely occurred due to acute pancreatitis. Admission and Anticipated Discharge Date Admission Date: January 24, 2020 Subjective Patient reports feeling well. His main complaint is that he has not had BM for days. Patient denies any nausea, vomiting. He reports though that he is not hungry. Review of Systems Review of Systems: All systems reviewed & are unremarkable except as noted in HPI & below Physical Exam Physical Exam: Constitutional: awake; no acute distress and not ill appearing Eyes: scleral icterus bilaterally Neck: normal visual inspection Respiratory: normal respiratory effort and able to speak in complete sentences; no respiratory distress, no labored breathing, no retractions, no cough and no audible wheezes Auscultation: lungs clear to auscultation bilaterally; no crackles, no rales, no rhonchi and no wheezes Cardiovascular: Rate/Rhythm: regular rate and regular rhythm Heart Sounds: normal S1 and normal S2; no gallop, no murmur and no cardiac rub Vessels: posterior tibial pulses present Extremities: no pedal edema and no edema Gastrointestinal (Abdomen): Inspection/Auscultation: abdomen normal to inspection and normal bowel sounds/ dry surgical dressing noted; abdomen not distended Soft, normal bowel sounds, non tender to palpation No guarding or rigidity. Negative Silva sign Results & Data Results & Data ([facility]) Vital Signs (Past 12 Hours) Vital Signs Temp Pulse Pulse Resp BP Pulse Ox 01/28/20 15:30 36.5 C 78 18 150/81 H 93 01/28/20 12:19 37.0 C 46 L 61 16 136/69 92 PG Care Time/CCT Total # of Minutes Spent Total Time Spent with Patient: Total time spent is greater than 50% in coordination of care (as documented) at patient's floor/unit and/or counseling patient: Coding Level of Care Code 88663 Subseq Obs Care Lvl 3 Diagnoses Choledocholithiasis K80.50 Pancreatitis due to common bile duct stone K85.90; K80.50 Elevated bilirubin R17 Chronic renal insufficiency N18.9 Hypothyroidism E03.9 Acute on chronic kidney failure N17.9; N18.9 Time Spent (min) 35
[2020-01-29] MEDS: PIPERACILLIN/TAZOBACTAM 3.375 GM in DEXTROSE 5% 100 ML IV SCH ×3 (06:14→22:02)
[2020-01-29] MEDS ORDERED: SOD PHOSPHATE/SOD BIPHOSPHATE ENEMA 132 ML BTL PR STA (08:18)
--- NOTE | 2020-01-29 08:33 | Surgery Progress Note ---
Date of Service January 29, 2020 Assessment & Plan (1) Choledocholithiasis: Patient is 3 days postop laparoscopic cholecystectomy cholangiogram KUB done yesterday showed likely ileus probably secondary to his pancreatitis and moderate amount of stool with some soft stool in the rectum At this point we will restart him on clear liquid his IV is going to 50 cc an hour and we will give him a fleets enema Present on Admission?: Yes Subjective No problems this morning states he had an emesis yesterday but feels fine now is abdominal pain or discomfort is pretty much gone his main issue that he wants to move his bowels Physical Exam Physical Exam: Is alert coherent comfortable The abdomen is softly distended as was yesterday the trocar sites are healing well no tenderness appreciated Results & Data Vital Signs (Past 12 Hours) Vital Signs Temp Pulse Resp BP Pulse Ox 01/29/20 07:28 36.6 C 58 L 16 154/84 H 92 01/28/20 23:05 36.8 C 78 18 145/73 H 92 PG Care Time/CCT Total # of Minutes Spent Total Time Spent with Patient: Total time spent is greater than 50% in coordination of care (as documented) at patient's floor/unit and/or counseling patient: Coding Level of Care Code None Diagnoses Choledocholithiasis K80.50
--- NOTE | 2020-01-29 08:44 | Hospitalist Progress Note ---
Date of Service January 29, 2020 Assessment & Plan (1) Choledocholithiasis: Patient Is an 84-year-old man with a history of resected colon cancer, history hypertension and renal insufficiency admitted to the hospital for abdominal pain found to be secondary to choledocholithiasis and pancreatitis. 1. Choledocholithiasis On admission: Total bilirubin elevated at 8.2, AST elevated at 44, ALT 77, alkaline phosphatase [address] abdomen pelvis with IV contrast showed a 13 mm gallstone in the common bile duct at the ampulla as well as several calcified gallstones in the gallbladder measuring up to 7 mm. Diffuse intrahepatic biliary duct dilation is also present along with a common hepatic duct measuring up to 16 mm. -Currently patient is feeling better. S/P ERCP. S/P cholecystectomy. pain is improved, removed stone. will continue current pain control. -will transition him to Augmentin at discharge. 2.Pancreatitis improved. 3. Esophagitis Omeprazole 20 mg twice a day at home. Giving IV famotidine 20 mg IV twice a day while patient is n.p.o. 4. Hypothyroidism Takes levothyroxine 50 mcg once a day by mouth holding at the moment while n.p.o. can restart after surgical intervention 5. Ileus NO Bm for days, not passing sangita no signs of peritonitis. 2 doses of miralax failed X-ray shows signs of ileus will hold opiates. Surgery ordered fleet enemas, will hold ng tube. DVT ppx: lovenox Code Status: Full Code Dispo: Med/Surg (2) Pancreatitis due to common bile duct stone: (3) Elevated bilirubin: (4) Chronic renal insufficiency: Stage IIIb. Due to low GFR/ creatinine clearance. appears to be at baseline will monitor. (5) Hypothyroidism: (6) Acute on chronic kidney failure: Creatinine was the highest at 1.8 on admission. This has improved and is now at goal. Likely occurred due to acute pancreatitis. Admission and Anticipated Discharge Date Admission Date: January 24, 2020 Subjective Patient vomited yesterday, as per nursing staff it was dark colored and appeared to be stool like. Patien states he is thristy, he reports he has not passedd any gas today. Review of Systems Review of Systems: All systems reviewed & are unremarkable except as noted in HPI & below Physical Exam Physical Exam: Constitutional: awake; no acute distress and not ill appearing Eyes: scleral icterus bilaterally Neck: normal visual inspection Respiratory: normal respiratory effort and able to speak in complete sentences; no respiratory distress, no labored breathing, no retractions, no cough and no audible wheezes Auscultation: lungs clear to auscultation bilaterally; no crackles, no rales, no rhonchi and no wheezes Cardiovascular: Rate/Rhythm: regular rate and regular rhythm Heart Sounds: normal S1 and normal S2; no gallop, no murmur and no cardiac rub Vessels: posterior tibial pulses present Extremities: no pedal edema and no edema Gastrointestinal (Abdomen): Inspection/Auscultation: abdomen appears distended, dry surgical dressing noted; abdomen not distended Soft, normal bowel sounds, non tender to palpation No guarding or rigidity. Negative Silva sign Results & Data Results & Data ([facility]) Vital Signs (Past 12 Hours) Vital Signs Temp Pulse Resp BP Pulse Ox 01/29/20 07:28 36.6 C 58 L 16 154/84 H 92 01/28/20 23:05 36.8 C 78 18 145/73 H 92 PG Care Time/CCT Total # of Minutes Spent Total Time Spent with Patient: Total time spent is greater than 50% in coordination of care (as documented) at patient's floor/unit and/or counseling patient: Coding Level of Care Code 76793 Subseq Hosp Care Lvl 3 Diagnoses Choledocholithiasis K80.50 Pancreatitis due to common bile duct stone K85.90; K80.50 Elevated bilirubin R17 Chronic renal insufficiency N18.9 Hypothyroidism E03.9 Acute on chronic kidney failure N17.9; N18.9 Time Spent (min) 35
[2020-01-29] MEDS: FAMOTIDINE 20 MG in SYRINGE 3 ML IV SCH ×2 (09:17→20:33)
[2020-01-29] MEDS: LACTATED RINGER'S 1,000 ML IV SCH ×2 (09:20→20:33)
[2020-01-30] MEDS: PIPERACILLIN/TAZOBACTAM 3.375 GM in DEXTROSE 5% 100 ML IV SCH (06:09)
--- NOTE | 2020-01-30 07:53 | Surgery Progress Note ---
Date of Service January 30, 2020 Assessment & Plan (1) Choledocholithiasis: Patient is fourth postoperative day status post lap palma cholangiogram From my point of view the patient's diet could be advanced and he can be discharged at the discretion of the primary service There is really no need to follow-up with us unless new issues arise He can increase his activity as tolerated he may shower should not drive if he is taken oral prescription analgesics Present on Admission?: Yes Subjective States feels better than yesterday had a large bowel movement after an enema was given denies any abdominal pain or any nausea no further emesis since once yesterday morning Physical Exam Physical Exam: Is alert coherent resting comfortably The abdomen is softly distended no localized tenderness the trocar sites are healing well Results & Data Vital Signs (Past 12 Hours) Vital Signs Temp Pulse Resp BP Pulse Ox 01/30/20 07:21 36.8 C 63 16 168/77 H 91 01/29/20 23:37 36.8 C 63 16 144/75 H 92 PG Care Time/CCT Total # of Minutes Spent Total Time Spent with Patient: Total time spent is greater than 50% in coordination of care (as documented) at patient's floor/unit and/or counseling patient: Coding Level of Care Code None Diagnoses Choledocholithiasis K80.50
[2020-01-30] MEDS: FAMOTIDINE 20 MG in SYRINGE 3 ML IV SCH (08:24)
[2020-01-30] MEDS: LACTATED RINGER'S 1,000 ML IV SCH (08:26)
[2020-01-30] MEDS ORDERED: POTASSIUM CHLORIDE 20 MEQ TABCR PO STA (10:28)
[2020-01-30] MEDS ORDERED: cephALEXin 250 MG CAP PO ONE (10:30)
--- NOTE | 2020-02-06 08:17 | Discharge Summary ---
Date of Service January 30, 2020 Principal Diagnosis choledocolithiasis Discharge Exam Constitutional: awake; no acute distress and not ill appearing Eyes: scleral icterus bilaterally Neck: normal visual inspection Respiratory: normal respiratory effort and able to speak in complete sentences; no respiratory distress, no labored breathing, no retractions, no cough and no audible wheezes Auscultation: lungs clear to auscultation bilaterally; no crackles, no rales, no rhonchi and no wheezes Cardiovascular: Rate/Rhythm: regular rate and regular rhythm Heart Sounds: normal S1 and normal S2; no gallop, no murmur and no cardiac rub Vessels: posterior tibial pulses present Extremities: no pedal edema and no edema Gastrointestinal (Abdomen): Inspection/Auscultation: abdomen appears distended, dry surgical dressing noted; abdomen not distended Soft, normal bowel sounds, non tender to palpation No guarding or rigidity. Negative Silva sign Discharge Data Allergies Allergy/AdvReac Type Severity Reaction Status Date / Time No Known Allergies Allergy Verified 01/24/20 22:33 Consultations 01/24/20 22:30 ED Decision to Admit Stat 01/25/20 02:26 Consult Gastroenterology Routine 01/25/20 08:23 Consult General Surgery Routine Procedures Performed Operation Date: 01/25/20 07:00 Actual Procedures p Endoscopic Retrograde Cholangiopancreatogram - Shilo Jaime MD Operation Date: 01/26/20 09:35 Actual Procedures p Laparoscopic Cholecystectomy with Cholangiogram, Lysis of Extensive Adhesions - Bello Huffman MD Ordered Studies 01/24/20 21:21 CT abd pelvis IV con only Urgent 01/25/20 14:30 FL ERCP biliary ductal Routine 01/26/20 10:10 FL cholangiogram OR Routine Hospital Course (1) Choledocholithiasis: Patient Is an 84-year-old man with a history of resected colon cancer, history hypertension and renal insufficiency admitted to the hospital for abdominal pain found to be secondary to choledocholithiasis and pancreatitis. 1. Choledocholithiasis On admission: Total bilirubin elevated at 8.2, AST elevated at 44, ALT 77, alkaline phosphatase [address] abdomen pelvis with IV contrast showed a 13 mm gallstone in the common bile duct at the ampulla as well as several calcified gallstones in the gallbladder measuring up to 7 mm. Diffuse intrahepatic biliary duct dilation is also present along with a common hepatic duct measuring up to 16 mm. -Currently patient is feeling better. S/P ERCP. S/P cholecystectomy. pain is improved, removed stone. will continue current pain control. -will transition him to Augmentin at discharge. 2.Pancreatitis improved. 3. Esophagitis Omeprazole 20 mg twice a day at home. Giving IV famotidine 20 mg IV twice a day while patient is n.p.o. 4. Hypothyroidism Takes levothyroxine 50 mcg once a day by mouth holding at the moment while n.p.o. can restart after surgical intervention 5. Ileus Improved WITH FLEET ENEMAS. Patient tolerating diet. Updated daughter. DVT ppx: lovenox Code Status: Full Code Dispo: Med/Surg (2) Pancreatitis due to common bile duct stone: (3) Elevated bilirubin: (4) Chronic renal insufficiency: Stage IIIb. Due to low GFR/ creatinine clearance. appears to be at baseline will monitor. (5) Hypothyroidism: (6) Acute on chronic kidney failure: Creatinine was the highest at 1.8 on admission. This has improved and is now at goal. Likely occurred due to acute pancreatitis. Total Time Total Time Spent Total Time Spent (In Minutes): 32 Total Time Includes: Examination of the Patient, Discharge Planning and Medication Reconciliation Discharge Plan Discharge Items Patient Disposition: Home - Home Health Services Reason For Visit: abdominal pain Discharge Diagnosis: Pancreatitis Activity: Per Instructions section Lifting: No more than 10 pounds Bathing Comment: may shower, no soaking in tubs/pools Exercise/Sports: Wait until after follow-up appointment Driving/Machine Use: Resume 3 days after discharge Non-emergency contact: Primary Care Provider Call non-emergency contact if: you have any medication questions, your symptoms worsen, your pain is not controlled, your pain is worsening, your pain is unusual for you, you have a fever, your temperature is above 101.5, your wound has increased redness, your wound has increased drainage and your wound pain has increased Follow-up/Referrals: Arron Austin MD [Primary Care Provider] - 02/06/20 11:30 am Bello Huffman MD [Surgeon] - 02/01/20 1:50 pm (Please call to schedule follow up in clinic within 1 week) Diet: Regular Addtl Attending Provider Instructions: Not to lift anything heavier than 10 pounds and no driving for 1 week. You may shower. Please continue on antibiotics for 3 more days. recommend followup with PCP in 1-2 weeks. Pending Studies at Discharge: No Stand-Alone Forms: [facility], Smoking Cessation Medications and DC Order Prescriptions: New cephalexin 250 mg capsule 250 mg PO Q6H Qty: 12 RF: 0 Continued levothyroxine 50 mcg tablet 50 mcg PO DAILY Qty: 90 RF: 1 omeprazole 20 mg capsule,delayed release(DR/EC) 20 mg PO BID Qty: 180 RF: 3 ferrous sulfate 325 mg (65 mg iron) tablet 325 mg PO BID Qty: 180 RF: 0 multivitamin [Multiple Vitamins] tablet 1 tab PO DAILY RF: 0 cholecalciferol (vitamin D3) 2,000 unit capsule 2,000 units PO DAILY RF: 0 acetaminophen [Tylenol Arthritis Pain] 650 mg Tablet Extended Release 1,300 mg PO QAM RF: 0 Discharge Orders: Discharge Order (Routine); Ordered 01/30/20 Ordered By: Jose Carlos Govea/Other Patient Handouts: Having Laparoscopic Cholecystectomy, Cholecystectomy Laparoscopic Dc Admission Data Admit Date/Time: 01/24/20 23:33 Attending Provider: Jose Carlos Bender Admit Provider: Qi Hurtado Primary Care Provider: Arron Austin Other Providers: Michael Marroquin ; Pam Alicea Matthew D. ; [facility] Other Interventions: Discharge Summary Assessment (RN) Last Done: 01/30/20 10:33 DC Date/Time DO NOT enter until pt leaves facility: 01/30/20 12:10 Coding Level of Care Code D/C Day Management >30 mins Diagnoses Choledocholithiasis K80.50 Pancreatitis due to common bile duct stone K85.90; K80.50 Elevated bilirubin R17 Chronic renal insufficiency N18.9 Hypothyroidism E03.9 Acute on chronic kidney failure N17.9; N18.9 Time Spent (min) 32
== END 2020-01-30 12:10 | disposition home health service (06) | DRG 417 ==
LOC: ED 20:37 → 3W 01-25 → SUATTDRO 01-25 → 3W 01-25 01:46

== ENCOUNTER 2020-02-27 15:38 | Inpatient (IN) ==
[2020-02-27] MEDS ORDERED: ONDANSETRON INJ 2 MG/ML 2 ML VIAL IV STA ×2 (16:32→19:47)
--- NOTE | 2020-02-27 16:42 | Emergency Department Note ---
Impression & Plan SBO (small bowel obstruction), Post-operative pain ED Provider Note NAME: JOSELO EUBANKS AGE: 84 SEX: M : 1935 ARRIVES VIA: Walk-In INFORMANT: Patient, ED PROVIDER(S): Dawson Katz DO CHIEF COMPLAINT: Abdominal pain HPI: The patient is an 84-year-old male who presented to the emergency department for an evaluation of abdominal pain. The patient states that he is one-week status post cholecystectomy. He also had a very complicated course because he had a gall bladder stone in the duct system. He does have a stent in place. He denies having any fever. He states he was feeling some discomfort over the last few days. He had a follow-up appointment with surgery and had an x-ray which did show an increased fecal load but he has had bowel movements over the last 24 hours. He complains of nausea but no fever. He does complain of some constipation. He states the pain is mostly in his upper abdomen and w orsened with any movement. He denies having any chest pain or shortness of breath. He denies having any rectal bleeding. The patient called his primary care physician and was instructed to go to the emergency department. ROS: See above HPI for pertinent positives & negatives. A total of 10 systems reviewed and were otherwise negative. PAST MEDICAL HISTORY: See Below PAST SURGICAL HISTORY: See Below FAMILY HISTORY: See Below SOCIAL HISTORY: See Below HOME MEDICATIONS: See Below ALLERGIES: See Below VITALS: See Below PHYSICAL EXAMINATION: GENERAL: Patient is awake alert in no acute distress patient is resting comfortably and showing no signs of anxiety EYES: The conjunctivae are clear. The pupils are round and reactive. EARS, NOSE, MOUTH AND THROAT: The nose is without any evidence of any deformity. Mucous membranes are moist. Tongue is midline. NECK: The neck is nontender and supple. RESPIRATORY: Normal respiratory effort is noted there is no evidence of wheezing rhonchi or rales CARDIOVASCULAR: Regular rate and rhythm noted there no murmurs rubs or gallops normal S1 normal S2. GASTROINTESTINAL: The abdomen is moderately distended. There is guarding in the right upper quadrant. There is diffuse tenderness throughout. MUSCULOSKELETAL/EXTREMITIES: There is no evidence of gross deformity full range of motion is noted in the hips and shoulders. SKIN: There is no obvious evidence of any rash. No significant pedal edema was noted. NEUROLOGIC: Patient is awake alert and oriented x3. MEDICAL DECISION MAKING: The patient is an 84-year-old male who presented to the emergency department for an evaluation of abdominal pain. The patient is status post cholecystectomy which was complicated by a ductal stone. The patient still has a stent in place. The patient was treated with IV fluids and IV pain medication. He was also treated with IV antibiotics. I discussed the patient's laboratory and rad iographic studies with him. He was found have signs of a high-grade small bowel obstruction on CT the abdomen and pelvis. He was ordered an NG tube in the emergency department. I discussed his case with the on-call general surgeon. I also discussed this case with the on-call [facility] hospitalist group. They will evaluate the patient in the emergency department for further management and disposition. The patient was feeling much better on subsequent reevaluation. Triage Nursing notes reviewed. Prior medical records reviewed Vital Signs: reviewed and remarkable for elevated blood pressure Differential diagnosis: Etiologies such as appendicitis, diverticulitis, obstruction, inflammatory bowel disease, renal colic, PUD, biliary pathology, pancreatitis, mesenteric ischemia, aortic pathology, infections, genitourinary, UTI, perforated viscus, postoperative infection, postoperative bleeding, injury to adjacent structures as well as others were entertained. ER treatment provided: See below Diagnostics interpreted by me: ECG: EKG was obtained in the emergency department. My interpretation is sinus bradycardia at 57 bpm. There is no ectopy. There is no acute ST segment abnormalities noted. This was compared to a tracing from January 232019. The rate has slowed and the previously noted ST segment depressions have resolved. Cardiac Monitoring: An order was placed for continuous cardiac monitoring. The monitor shows a rate of 68 with sinus rhythm. Laboratory studies: As stated above and show below. Imaging studies: See below Consultation(s): 1844: I discussed this case with Dr. Barrios. He will follow the patient in consultation. 1919: I discussed this case with Dr. Alcala. ED COURSE: Procedures: none PDMP:reviewed and no issues Critical Care: None Past Med/Surg History Medical History Acute renal failure Basal cell carcinoma History of actinic keratosis History of colon cancer Pneumonia Urinary frequency Weakness Surgical History History of colon surgery History of colonoscopy History of inguinal hernia repair, bilateral Hx laparoscopic cholecystectomy (01/26/20) Laparoscopic Cholecystectomy with Cholangiogram, Lysis of Extensive Adhesions Dr. Huffman 01/26/2020 Family History Father , Age 72 No problems noted. Mother , Age 82 No problems noted. 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 Beliefs That Will Affect Care: None marital status: / Current Living Situation: Alone current occupational status: retired Feels Safe at Home: Yes Allergies Allergies Allergy/AdvReac Type Severity Reaction Status Date / Time No Known Allergies Allergy Verified 02/27/20 17:33 Home Meds Home Medications Medication Instructions Recorded Confirmed cholecalciferol (vitamin D3) 50 2,000 units PO DAILY cap 02/28/19 02/27/20 mcg (2,000 unit) capsule ferrous sulfate 325 mg (65 mg 325 mg PO BID #180 tab 02/28/19 02/27/20 iron) tablet multivitamin 1 tab PO DAILY 02/28/19 02/27/20 acetaminophen [Tylenol Arthritis 1,300 mg PO QAM 01/24/20 02/27/20 Pain] Previous Rx's Medication Instructions Recorded levothyroxine 50 mcg tablet 50 mcg PO DAILY #90 tab 08/19/19 omeprazole 20 mg capsule,delayed 20 mg PO BID #180 cap 08/19/19 release Results & Data (ED) Vital Signs Vital Signs - 24 hr 02/27/20 15:56 02/27/20 17:04 02/27/20 18:46 Temperature 36.6 C Temperature Source Oral Pulse Rate 65 Pulse Rate [Left] 64 Pulse Rhythm Regular Pulse Strength Normal Respiratory Rate 18 18 Respiratory Effort / Characteristics Non-Labored Spontaneous Respiratory Depth Normal Normal Respiratory Pattern Regular Blood Pressure 125/70 Blood Pressure [Left Arm] 152/73 H Blood Pressure Mean 88 Blood Pressure Mean [Left Arm] 99 Blood Pressure Position Sitting Blood Pressure Position [Left Arm] Lying Pulse Oximetry 96 96 97 Oxygen Delivery Method Room Air Room Air Room Air Sepsis Recent Fever Within 48 Hours No Sepsis New/Unexplained Change in Mental Status N/A Sepsis Action Taken by Nursing No Action Required Home Medications Current Medication List: was personally reviewed by me Laboratory Data Attestation: I reviewed the patient's lab results. Result diagrams: 02/27/20 17:19 02/27/20 17:19 Lab Results 02/27/20 02/27/20 02/27/20 Range/Units 17:19 17:19 17:19 WBC 8.52 (4.8-10.8) K/uL RBC 4.38 L (4.7-6.1) M/uL Hgb 13.5 L (14.0-18.0) g/dL POC Hgb (14.0-18.0) g/dl Hct 39.5 L (42-52) % POC Hct (42-52) % MCV 90.2 (80-100) fL MCH 30.8 (25-34) pg MCHC 34.2 (32-36) g/dL RDW Std Deviation 43.8 (36.4-46.3) fL RDW Coeff of Kel 13.4 (11.5-14.5) % Plt Count 220 (130-400) K/uL MPV 10.8 H (7.4-10.4) fL Immature Gran % (Auto) 0.7 % Neut % (Auto) 65.0 % Lymph % (Auto) 17.0 % [place] % (Auto) 10.9 % Eos % (Auto) 6.0 % Baso % (Auto) 0.4 % Neut # (Auto) 5.54 (1.4-6.5) K/uL Lymph # (Auto) 1.45 (1.2-3.4) K/uL [place] # (Auto) 0.93 H (0.11-0.59) K/uL Eos # (Auto) 0.51 H (0-0.5) K/uL Baso # (Auto) 0.03 (0-0.2) K/uL Immature Gran # (Auto) 0.06 H (0.00-0.02) K/uL PT 10.9 (9.0-12.0) Seconds INR 1.0 (0.9-1.1) APTT 25.2 (21.0-31.0) Seconds PTT Ratio 0.9 POC Sodium (135-144) mmol/L Sodium 138 (136-145) mmol/L POC Potassium (3.3-5.0) mmol/L Potassium 4.1 (3.5-5.1) mmol/L POC Chloride (101-112) mmol/L Chloride 106 (98-107) mmol/L Carbon Dioxide 26 (21-32) mmol/L POC Total CO2 (24-31) mmol/L Anion Gap 5.0 (3-11) POC Anion Gap (16-25) mmol/L POC BUN (7-18) mg/dl BUN 17 (7-18) mg/dl Creatinine 1.33 (0.6-1.4) mg/dl POC Creatinine (0.6-1.3) mg/dl Est Cr Clr Drug Dosing 43.8 ml/min Est GFR ( Amer) 55.7 Est GFR (Non-Af Amer) 48.1 BUN/Creatinine Ratio 12.6 (10-20) Glucose 98 (70-99) mg/dl POC Glucose (other) (70-99) mg/dl Calcium 9.2 (8.5-10.1) mg/dl POC Ioniz Calcium Sinan (1.12-1.32) mmol/l Total Bilirubin 0.7 (0.2-1) mg/dl AST 12 L (15-37) U/L ALT 20 (12-78) U/L Alkaline Phosphatase 107 (45-117) U/L Troponin I < 0.015 (0-0.045) ng/ml Total Protein 6.6 (6.4-8.2) gm/dl Albumin 3.5 (3.4-5.0) gm/dl Globulin 3.1 (2.5-4.0) gm/dl Albumin/Globulin Ratio 1.1 (0.9-2) Lipase 101 (73-393) U/L Urine Color Urine Appearance (Clear) Urine pH (4.5-7.5) Ur Specific [place] (1.000-1.030) Urine Protein (Negative) Urine Glucose (UA) (Negative) Urine Ketones (Negative) Urine Blood (Negative) Urine Nitrite (Negative) Urine Bilirubin (Negative) Urine Urobilinogen (Negative) Ur Leukocyte Esterase (Negative) 02/27/20 02/27/20 Range/Units 17:27 17:32 WBC (4.8-10.8) K/uL RBC (4.7-6.1) M/uL Hgb (14.0-18.0) g/dL POC Hgb 12.6 L (14.0-18.0) g/dl Hct (42-52) % POC Hct 37 L (42-52) % MCV (80-100) fL MCH (25-34) pg MCHC (32-36) g/dL RDW Std Deviation (36.4-46.3) fL RDW Coeff of Kel (11.5-14.5) % Plt Count (130-400) K/uL MPV (7.4-10.4) fL Immature Gran % (Auto) % Neut % (Auto) % Lymph % (Auto) % [place] % (Auto) % Eos % (Auto) % Baso % (Auto) % Neut # (Auto) (1.4-6.5) K/uL Lymph # (Auto) (1.2-3.4) K/uL [place] # (Auto) (0.11-0.59) K/uL Eos # (Auto) (0-0.5) K/uL Baso # (Auto) (0-0.2) K/uL Immature Gran # (Auto) (0.00-0.02) K/uL PT (9.0-12.0) Seconds INR (0.9-1.1) APTT (21.0-31.0) Seconds PTT Ratio POC Sodium 139 (135-144) mmol/L Sodium (136-145) mmol/L POC Potassium 4.1 (3.3-5.0) mmol/L Potassium (3.5-5.1) mmol/L POC Chloride 100 L (101-112) mmol/L Chloride (98-107) mmol/L Carbon Dioxide (21-32) mmol/L POC Total CO2 25 (24-31) mmol/L Anion Gap (3-11) POC Anion Gap 19.0 (16-25) mmol/L POC BUN 19 H (7-18) mg/dl BUN (7-18) mg/dl Creatinine (0.6-1.4) mg/dl POC Creatinine 1.4 H (0.6-1.3) mg/dl Est Cr Clr Drug Dosing ml/min Est GFR ( Amer) Est GFR (Non-Af Amer) BUN/Creatinine Ratio (10-20) Glucose (70-99) mg/dl POC Glucose (other) 101 H (70-99) mg/dl Calcium (8.5-10.1) mg/dl POC Ioniz Calcium [place] 1.22 (1.12-1.32) mmol/l Total Bilirubin (0.2-1) mg/dl AST (15-37) U/L ALT (12-78) U/L Alkaline Phosphatase (45-117) U/L Troponin I (0-0.045) ng/ml Total Protein (6.4-8.2) gm/dl Albumin (3.4-5.0) gm/dl Globulin (2.5-4.0) gm/dl Albumin/Globulin Ratio (0.9-2) Lipase (73-393) U/L Urine Color Yellow Urine Appearance Clear (Clear) Urine pH 5.5 (4.5-7.5) Ur Specific [place] 1.016 (1.000-1.030) Urine Protein Negative (Negative) Urine Glucose (UA) Negative (Negative) Urine Ketones Negative (Negative) Urine Blood Negative (Negative) Urine Nitrite Negative (Negative) Urine Bilirubin Negative (Negative) Urine Urobilinogen Negative (Negative) Ur Leukocyte Esterase Negative (Negative) Administered Medications Discontinued Medications Sodium Chloride (Nss 1000ml) 1,000 mls @ 999 mls/hr IV .Q1H1M DARIAN Stop: 02/27/20 17:45 Last Infusion: 02/27/20 18:43 Dose: 0 mls/hr Documented by: [id number] Admin: 02/27/20 17:31 Dose: 999 mls/hr Documented by: [id number] Ioversol (Optiray 320 100ml) 93 ml IV ONCE ONE Stop: 02/27/20 18:21 Last Admin: 02/27/20 18:21 Dose: 93 ml Documented by: [id number] Ondansetron HCl (Zofran) 4 mg IV NOW STA Stop: 02/27/20 16:33 Last Admin: 02/27/20 17:31 Dose: Not Given Documented by: [id number] Imaging Data Radiologist's Impression: XR chest 1V portable HISTORY: 84 years-old Male abd pain acute generalized abdominal pain COMPARISON: CT abdomen and pelvis 01/24/2020 TECHNIQUE: Portable AP view of the chest FINDINGS: Cardiac silhouette is upper limits of normal in size. Scattered pulmonary calcified granulomata redemonstrated. Moderate hemidiaphragmatic elevation. No pneumothorax, pleural effusion, airspace consolidation or overt pulmonary edema. Degenerative changes of the shoulders and spine. IMPRESSION: No acute process. ACT 112: Negative or not required by law. The above report was generated using voice recognition software. It may contain grammatical, syntax or spelling errors. Electronically signed by: Elvin Hercules M.D. 02/27/2020 6:00 PM Dictated: 02/27/[address] WITH IV CONTRAST CT DOSE: 795.11 mGycm HISTORY: Acute right upper quadrant abdominal pain with prior cholecystectomy. pain, s/p palma TECHNIQUE: Multiaxial CT images of the abdomen and pelvis were performed following the IV administration of 93 cc of Optiray 320, A dose lowering technique was utilized adhering to the principles of ALARA. COMPARISON STUDY: CT abdomen and pelvis 01/24/2020 FINDINGS: Calcified granuloma of the lateral basal segment right lower lobe. There is no pneumatosis or pneumoperitoneum. Imaged inferior cardiac chambers are unremarkable. Coronary artery and aortic annular calcifications. Calcified granulomata of the spleen. The spleen is mildly enlarged, 13.8 cm. Unremarkable adrenal glands and pancreas. No pancreatic ductal dilation. Pneumobilia is noted with moderate intrahepatic biliary ductal dilation, improved from comparison with a common bile duct stent, distal tip terminating within the duodenum. The gallbladder appears surgically absent. No residual choledocholithiasis identified. Trace edema/fluid is noted within the sujit hepatis. No drainable fluid collection. There are a few bilateral renal cysts noted measuring up to 3.3 cm on the left. No obstructive uropathy. Urinary bladder diverticula with wall thickening and trabeculation suggest sequela of chronic bladder outlet obstruction. Mild prostamegaly. Calcified plaque of the abdominal aorta. Unchanged 3 mm intrarenal aneurysm. No adenopathy. Small hiatal hernia. Moderate debris-filled distended stomach. There are multiple dilated air and fluid-filled loops of small bowel within the abdomen and pelvis measuring up to 4.1 cm. There is moderate fecal retention. Postoperative changes of prior right hemicolectomy. Stool-filled loops of ileum are noted with transition point present within the abdominal right lower quadrant, image 246 series 3. Decompressed bowel seen distally. Degenerative changes of the spine, pelvis and hips. Postoperative changes involve the posterior elements at the lumbosacral junction. No acute fracture. IMPRESSION: 1. High-grade small bowel obstruction with transition point present within the abdominal right lower quadrant, likely secondary to small bowel adhesions. 2. No pneumatosis or pneumoperitoneum. 3. Prior cholecystectomy with satisfactory positioning of the common bile duct stent. Moderate biliary ductal dilation has improved from comparison. 4. No postoperative drainable fluid collection. 5. Unchanged 3 mm infrarenal abdominal aortic aneurysm. 6. Additional findings as above. ACT 112: Negative or not required by law. The above report was generated using voice recognition software. It may contain grammatical, syntax or spelling errors. Electronically signed by: Elvin Hercules M.D. 02/27/2020 6:46 PM Dictated: 02/27/201833 Transcribed: 02/27/201833 Blood Pressure Blood Pressure Findings: Elevated blood pressure Blood Pressure Disposition: further management by hospitalist Discharge Plan Visit Data Chief Complaint: Constipation Stated Complaint: BOWEL OBSTRUCTION ED Provider: Dawson Katz Discharge Problem: SBO (small bowel obstruction), Post-operative pain Patient Disposition: Being Evaluated by Hospitalist Condition: Good Forms Stand Alone Forms: [employer] Prescriptions Prescriptions: No Action levothyroxine 50 mcg tablet 50 mcg PO DAILY Qty: 90 RF: 1 omeprazole 20 mg capsule,delayed release(DR/EC) 20 mg PO BID Qty: 180 RF: 3 ferrous sulfate 325 mg (65 mg iron) tablet 325 mg PO BID Qty: 180 RF: 0 multivitamin [Multiple Vitamins] tablet 1 tab PO DAILY RF: 0 cholecalciferol (vitamin D3) 2,000 unit capsule 2,000 units PO DAILY RF: 0 acetaminophen [Tylenol Arthritis Pain] 650 mg Tablet Extended Release 1,300 mg PO QAM RF: 0 Referrals Referrals: Arron Austin MD [Primary Care Provider] -
[2020-02-27] MEDS ORDERED: SODIUM CHLORIDE 0.9% 1000ML 1,000 ML IV SCH (16:45)
[2020-02-27 17:28] LABS: Basophils # (auto) 0.03 K/uL (0-0.2); Basophils % (auto) 0.4 %; Eosinophils # (auto) 0.51 K/uL (0-0.5); Hematocrit (blood only) 39.5 % (42-52); Hemoglobin 13.5 g/dL (14.0-18.0); Immature Granulocytes # (auto) 0.06 K/uL (0.00-0.02); Immature Granulocytes % (auto) 0.7 %; Lymphocytes # (auto) 1.45 K/uL (1.2-3.4); Mean Corpuscular Hemoglobin 30.8 pg (25-34); Mean Corpuscular Hgb Conc 34.2 g/dL (32-36); Mean Corpuscular Volume 90.2 fL (80-100); Mean Platelet Volume 10.8 fL (7.4-10.4); Monocytes # (auto) 0.93 K/uL (0.11-0.59); Monocytes % (auto) 10.9 %; Neutrophils # (auto) 5.54 K/uL (1.4-6.5); Platelet Count 220 K/uL (130-400); RDW Coefficient of Variation 13.4 % (11.5-14.5); RDW Standard Deviation 43.8 fL (36.4-46.3); Red Blood Count 4.38 M/uL (4.7-6.1); White Blood Count 8.52 K/uL (4.8-10.8)
[2020-02-27 17:40] LABS: Partial Thromboplastin Ratio 0.9; Partial Thromboplastin Time 25.2 Seconds (21.0-31.0); Prothrombin Time 10.9 Seconds (9.0-12.0)
[2020-02-27 17:43] LABS: iSTAT Creatinine 1.4 mg/dl (0.6-1.3); iSTAT Hemoglobin 12.6 g/dl (14.0-18.0); iSTAT Ionized Calcium 1.22 mmol/l (1.12-1.32); iSTAT Potassium 4.1 mmol/L (3.3-5.0)
[2020-02-27 17:45] LABS: Albumin Level 3.5 gm/dl (3.4-5.0); BUN Creatinine Ratio 12.6 (10-20); Blood Urea Nitrogen 17 mg/dl (7-18); Calcium 9.2 mg/dl (8.5-10.1); Carbon Dioxide 26 mmol/L (21-32); Chloride 106 mmol/L (98-107); Creatinine Clr Calc Pharmacy 43.8 ml/min; Est GFR (African American) 55.7; Est GFR (Non-African American) 48.1; Glucose 98 mg/dl (70-99); Lipase 101 U/L (73-393); Potassium 4.1 mmol/L (3.5-5.1); Sodium 138 mmol/L (136-145)
[2020-02-27 17:53] LABS: Alanine Aminotransferase 20 U/L (12-78); Albumin Globulin Ratio 1.1 (0.9-2); Alkaline Phosphatase 107 U/L (45-117); Aspartate Aminotransferase 12 U/L (15-37); Bilirubin,Total 0.7 mg/dl (0.2-1); Globulin 3.1 gm/dl (2.5-4.0); Total Protein 6.6 gm/dl (6.4-8.2); Troponin I < 0.015 ng/ml (0-0.045)
[2020-02-27 17:56] LABS: Appearance Urine Clear (Clear); Bilirubin Urine Negative (Negative); Blood Urine Negative (Negative); Color Urine Yellow; Glucose Urine UA Negative (Negative); Ketones Urine Negative (Negative); Leukocyte Esterase Urine Negative (Negative); Nitrite Urine Negative (Negative); Protein Urine Negative (Negative); Specific Gravity Urine 1.016 (1.000-1.030); Urobilinogen Urine Negative (Negative); pH Urine 5.5 (4.5-7.5)
--- NOTE | 2020-02-27 18:02 | XRay Report ---
XR chest 1V portable HISTORY: 84 years-old Male abd pain acute generalized abdominal pain COMPARISON: CT abdomen and pelvis 01/24/2020 TECHNIQUE: Portable AP view of the chest FINDINGS: Cardiac silhouette is upper limits of normal in size. Scattered pulmonary calcified granulomata redem onstrated. Moderate hemidiaphragmatic elevation. No pneumothorax, pleural effusion, airspace consolid ation or overt pulmonary edema. Degenerative changes of the shoulders and spine. IMPRESSION: No acute process. ACT 112: Negative or not required by law. The above report was generated using voice recognition software. It may contain grammatical, syntax o r spelling errors. Electronically signed by: Elvin Hercules M.D. 02/27/2020 6:00 PM
[2020-02-27] MEDS ORDERED: IOVERSOL 100ml IV ONE (18:20)
--- NOTE | 2020-02-27 18:47 | CT Scan Report ---
ABDOMEN AND PELVIS CT WITH IV CONTRAST CT DOSE: 795.11 mGycm HISTORY: Acute right upper quadrant abdominal pain with prior cholecystectomy. pain, s/p palma TECHNIQUE: Multiaxial CT images of the abdomen and pelvis were performed following the IV administrat ion of 93 cc of Optiray 320, A dose lowering technique was utilized adhering to the principles of AL DREA. COMPARISON STUDY: CT abdomen and pelvis 01/24/2020 FINDINGS: Calcified granuloma of the lateral basal segment right lower lobe. There is no pneumatosis or pneumop eritoneum. Imaged inferior cardiac chambers are unremarkable. Coronary artery and aortic annular calc ifications. Calcified granulomata of the spleen. The spleen is mildly enlarged, 13.8 cm. Unremarkable adrenal glands and pancreas. No pancreatic ductal dilation. Pneumobilia is noted with moderate intra hepatic biliary ductal dilation, improved from comparison with a common bile duct stent, distal tip t erminating within the duodenum. The gallbladder appears surgically absent. No residual choledocholith iasis identified. Trace edema/fluid is noted within the sujit hepatis. No drainable fluid collection. There are a few bilateral renal cysts noted measuring up to 3.3 cm on the left. No obstructive uropat hy. Urinary bladder diverticula with wall thickening and trabeculation suggest sequela of chronic ciarra dder outlet obstruction. Mild prostamegaly. Calcified plaque of the abdominal aorta. Unchanged 3 mm i ntrarenal aneurysm. No adenopathy. Small hiatal hernia. Moderate debris-filled distended stomach. There are multiple dilated air and flu id-filled loops of small bowel within the abdomen and pelvis measuring up to 4.1 cm. There is moderat e fecal retention. Postoperative changes of prior right hemicolectomy. Stool-filled loops of ileum ar e noted with transition point present within the abdominal right lower quadrant, image 246 series 3. Decompressed bowel seen distally. Degenerative changes of the spine, pelvis and hips. Postoperative c hanges involve the posterior elements at the lumbosacral junction. No acute fracture. IMPRESSION: 1. High-grade small bowel obstruction with transition point present within the abdominal right lower quadrant, likely secondary to small bowel adhesions. 2. No pneumatosis or pneumoperitoneum. 3. Prior cholecystectomy with satisfactory positioning of the common bile duct stent. Moderate biliar y ductal dilation has improved from comparison. 4. No postoperative drainable fluid collection. 5. Unchanged 3 mm infrarenal abdominal aortic aneurysm. 6. Additional findings as above. ACT 112: Negative or not required by law. The above report was generated using voice recognition software. It may contain grammatical, syntax o r spelling errors. Electronically signed by: Elvin Hercules M.D. 02/27/2020 6:46 PM
[2020-02-27] MEDS ORDERED: fentaNYL citrate 100 MCG/2 ML VIAL IV PRN (18:50)
[2020-02-27] MEDS ORDERED: PIPERACILL/TAZOBAC CONSULT ACTIVE PRN ×2 (18:54→21:38)
[2020-02-27] MEDS ORDERED: PIPERACILLIN/TAZOBACTAM 4.5 GM/120 ML BAG IV ONE (18:54)
[2020-02-27] MEDS ORDERED: ONDANSETRON INJ 2 MG/ML 2 ML VIAL ONE (19:56)
--- NOTE | 2020-02-27 20:11 | History & Physical Report ---
Date of Service February 27, 2020 Assessment & Plan (1) SBO (small bowel obstruction): High-grade small bowel obstruction with transition point in right lower quadrant likely secondary to adhesions. NPO NGT to LIS NSS at 100 mils per hour Zofran 4 mg IV every 6 hours PRN Famotidine 20 mg IV every 12 hours Zosyn 3.375 mg IV every 8 hours Dilaudid 0.2 mg IV every 3 hours PRN severe pain General surgery consult Present on Admission?: Yes (2) Choledocholithiasis: As noted above, status post biliary sphincterotomy and balloon sphincteroplasty with removal of CBD stone, placement of 1 plastic biliary stent, and notice of ascending cholangitis during 01/24 ERCP. Follow-up plan by gastroenterology was to have repeat ERCP in 4 weeks to remove stent. Present on Admission?: Yes (3) Pancreatitis due to common bile duct stone: See above Present on Admission?: Yes (4) Renal insufficiency: Creatinine 1.33 upon admission, with range 1.37-1.84. Follow daily while n.p.o. and on IV fluids and NGT to LIS in place Present on Admission?: Yes (5) Esophagitis, unspecified: Hold omeprazole 20 mg p.o. twice daily. Placed on famotidine 20 mg IV every 12 hours Present on Admission?: Yes (6) Hypothyroidism: On levothyroxine 50 mcg p.o., Which will be held. If he is going to be n.p.o. for longer than a few days, could change to IV Present on Admission?: Yes History of Present Illness Chief Complaint: The patient presents to the emergency department due to significant abdominal pain, and had nausea and vomiting while in the emergency department. Primary Care Provider: Arron Austin MD The patient is a 84-year-old male with a past medical history including acute on chronic kidney failure, pancreatitis due to, bile duct stone, choledocholithiasis, hypothyroidism, hypertension, BPH, chronic kidney disease, colon cancer, esophagitis and rhabdomyolysis. His most recent admission was from 01/23-01/29 for choledocholithiasis. On 01/24 he underwent biliary sphincterotomy and balloon sphincteroplasty with stone removal and placement of 1 plastic biliary stent. A sending cholangitis was noted at that time as well. Plan from GI was to have repeat ERCP in approximately 4 weeks to remove stent. He underwent cholecystectomy on 01/25, and was ultimately discharged on 01/29. Allergies Allergy/AdvReac Type Severity Reaction Status Date / Time No Known Allergies Allergy Verified 02/27/20 17:33 Home Medications Home Medications Medication Instructions Recorded Confirmed Type cholecalciferol (vitamin D3) 50 2,000 units PO DAILY cap 02/28/19 02/27/20 History mcg (2,000 unit) capsule ferrous sulfate 325 mg (65 mg 325 mg PO BID #180 tab 02/28/19 02/27/20 History iron) tablet multivitamin 1 tab PO DAILY 02/28/19 02/27/20 History levothyroxine 50 mcg tablet 50 mcg PO DAILY #90 tab 08/19/19 02/27/20 Rx omeprazole 20 mg capsule,delayed 20 mg PO BID #180 cap 08/19/19 02/27/20 Rx release acetaminophen [Tylenol Arthritis 1,300 mg PO QAM 01/24/20 02/27/20 History Pain] Past Med/Surg History Medical History Acute renal failure Basal cell carcinoma History of actinic keratosis History of colon cancer Pneumonia Urinary frequency Weakness Surgical History History of colon surgery History of colonoscopy History of inguinal hernia repair, bilateral Hx laparoscopic cholecystectomy (01/26/20) Laparoscopic Cholecystectomy with Cholangiogram, Lysis of Extensive Adhesions Dr. Huffman 01/26/2020 Family History Father , Age 72 No problems noted. Mother , Age 82 No problems noted. Family/Other Prostate cancer Social History Smoking Status: Former smoker Age Started Using Tobacco: 18; Age Quit Using Tobacco: 42; Hx Alcohol Use: Yes Alcohol type: beer Hx Substance Use: No Preferred Language: Serbian Communication Ability: Effective Skiagrapher Required: No Beliefs That Will Affect Care: None marital status: / Current Living Situation: Alone current occupational status: retired Other Information That Helps Us Care for You: No Feels Safe at Home: Yes Safety Concerns: Feels Safe At This Time Review of Systems Review of Systems: The patient denies chest pain, palpitations, shortness of breath, dyspnea on exertion, cough, lower extremity swelling, sore throat, fevers, chills, sweats, blood in urine or stool, dysuria, urinary frequency or urgency, lightheadedness, dizziness, headache, memory loss, loss of consciousness, rash, abnormal bruising or bleeding, imbalance, focal or generalized weakness, numbness or tingling in arms or legs, generalized arthralgias or myalgias, back or neck pain. The review of systems is otherwise negative other than for that already noted above, and at least 10 systems have been reviewed. Physical Exam Physical Exam: The patient is awake, alert and oriented 3, normocephalic and atraumatic. Actively vomiting with my initial assessment in the ED. then feeling improved post NG tube placement. HEENT--PERRL, EOMI, mucous membranes and oropharynx dry. Neck--supple. No JVD. No bruits. Thyroid normal, trachea midline, no adenopathy. Heart--normal S1 and S2. No murmurs, rubs or gallops. Lungs--clear bilaterally, no respiratory distress, no accessory muscle use. Abdomen--normal bowel sounds and soft. Generalized tenderness. Moderately distended. Decreased bowel sounds. Extremities--no cyanosis or clubbing. No edema. Dermatologic--normal skin turgor, normal color, no rash. Neurologic--cranial nerves II through XII grossly intact. Rheumatologic--normal range of motion. Psychiatric--normal affect. Results & Data Results & Data ([facility]) Vital Signs (Past 12 Hours) Vital Signs Temp Pulse Pulse Resp BP BP Pulse Ox 02/27/20 19:30 61 21 153/75 H 97 02/27/20 18:46 64 18 152/73 H 97 02/27/20 17:04 96 02/27/20 15:56 97.9 F 65 18 125/70 96 Laboratory Results Laboratory Results WBC 8.52 K/uL (4.8-10.8) 02/27/20 17:19 RBC 4.38 M/uL (4.7-6.1) L 02/27/20 17:19 Hgb 13.5 g/dL (14.0-18.0) L 02/27/20 17:19 POC Hgb 12.6 g/dl (14.0-18.0) L 02/27/20 17:27 Hct 39.5 % (42-52) L 02/27/20 17:19 POC Hct 37 % (42-52) L 02/27/20 17:27 MCV 90.2 fL (80-100) 02/27/20 17:19 MCH 30.8 pg (25-34) 02/27/20 17: MCHC 34.2 g/dL (32-36) 02/27/20 17: RDW Std Deviation 43.8 fL (36.4-46.3) 02/27/20 17: RDW Coeff of Kel 13.4 % (11.5-14.5) 02/27/20 17: Plt Count 220 K/uL (130-400) 02/27/20 17:19 MPV 10.8 fL (7.4-10.4) H 02/27/20 17:19 Immature Gran % (Auto) 0.7 % 02/27/20 17:19 Neut % (Auto) 65.0 % 02/27/20 17:19 Lymph % (Auto) 17.0 % 02/27/20 17:19 [place] % (Auto) 10.9 % 02/27/20 17:19 Eos % (Auto) 6.0 % 02/27/20 17:19 Baso % (Auto) 0.4 % 02/27/20 17:19 Neut # (Auto) 5.54 K/uL (1.4-6.5) 02/27/20 17:19 Lymph # (Auto) 1.45 K/uL (1.2-3.4) 02/27/20 17:19 [place] # (Auto) 0.93 K/uL (0.11-0.59) H 02/27/20 17:19 Eos # (Auto) 0.51 K/uL (0-0.5) H 02/27/20 17:19 Baso # (Auto) 0.03 K/uL (0-0.2) 02/27/20 17:19 Immature Gran # (Auto) 0.06 K/uL (0.00-0.02) H 02/27/20 17:19 PT 10.9 Seconds (9.0-12.0) 02/27/20 17:19 INR 1.0 (0.9-1.1) 02/27/20 17:19 APTT 25.2 Seconds (21.0-31.0) 02/27/20 17:19 PTT Ratio 0.9 02/27/20 17:19 POC Sodium 139 mmol/L (135-144) 02/27/20 17:27 Sodium 138 mmol/L (136-145) 02/27/20 17:19 POC Potassium 4.1 mmol/L (3.3-5.0) 02/27/20 17:27 Potassium 4.1 mmol/L (3.5-5.1) 02/27/20 17:19 POC Chloride 100 mmol/L (101-112) L 02/27/20 17:27 Chloride 106 mmol/L (98-107) 02/27/20 17:19 Carbon Dioxide 26 mmol/L (21-32) 02/27/20 17:19 POC Total CO2 25 mmol/L (24-31) 02/27/20 17:27 Anion Gap 5.0 (3-11) 02/27/20 17:19 POC Anion Gap 19.0 mmol/L (16-25) 02/27/20 17:27 POC BUN 19 mg/dl (7-18) H 02/27/20 17:27 BUN 17 mg/dl (7-18) 02/27/20 17:19 Creatinine 1.33 mg/dl (0.6-1.4) 02/27/20 17:19 POC Creatinine 1.4 mg/dl (0.6-1.3) H 02/27/20 17:27 Est Cr Clr Drug Dosing 43.8 ml/min 02/27/20 17:19 Est GFR ( Amer) 55.7 02/27/20 17:19 Est GFR (Non-Af Amer) 48.1 02/27/20 17:19 BUN/Creatinine Ratio 12.6 (10-20) 02/27/20 17:19 Glucose 98 mg/dl (70-99) 02/27/20 17:19 POC Glucose (other) 101 mg/dl (70-99) H 02/27/20 17:27 Calcium 9.2 mg/dl (8.5-10.1) 02/27/20 17:19 POC Ioniz Calcium Sinan 1.22 mmol/l (1.12-1.32) 02/27/20 17:27 Total Bilirubin 0.7 mg/dl (0.2-1) 02/27/20 17:19 AST 12 U/L (15-37) L 02/27/20 17:19 ALT 20 U/L (12-78) 02/27/20 17:19 Alkaline Phosphatase 107 U/L (45-117) 02/27/20 17:19 Troponin I < 0.015 ng/ml (0-0.045) 02/27/20 17:19 Total Protein 6.6 gm/dl (6.4-8.2) 02/27/20 17:19 Albumin 3.5 gm/dl (3.4-5.0) 02/27/20 17:19 Globulin 3.1 gm/dl (2.5-4.0) 02/27/20 17:19 Albumin/Globulin Ratio 1.1 (0.9-2) 02/27/20 17:19 Lipase 101 U/L (73-393) 02/27/20 17:19 Urine Color Yellow 02/27/20 17:32 Urine Appearance Clear (Clear) 02/27/20 17:32 Urine pH 5.5 (4.5-7.5) 02/27/20 17:32 Ur Specific [place] 1.016 (1.000-1.030) 02/27/20 17:32 Urine Protein Negative (Negative) 02/27/20 17:32 Urine Glucose (UA) Negative (Negative) 02/27/20 17:32 Urine Ketones Negative (Negative) 02/27/20 17:32 Urine Blood Negative (Negative) 02/27/20 17:32 Urine Nitrite Negative (Negative) 02/27/20 17:32 Urine Bilirubin Negative (Negative) 02/27/20 17:32 Urine Urobilinogen Negative (Negative) 02/27/20 17:32 Ur Leukocyte Esterase Negative (Negative) 02/27/20 17:32 Diagnostic Findings [facility], [place] [phone] CT Scan Report Patient: JOSELO EUBANKS EAdmit Date: 02/27/20 MR#: [id number]: [address] Acct ID:[id number]: Date: [address] [place] [address] Zip: [place] [address] Age: 84Location: ED Sex: M Room/Bed: Att Phy:Diagnosis: BOWEL OBSTRUCTION Capri Phy: Arron Austin MDService Date: 02/27/20 [facility] Phy:Interpreting Phy: Theo Hercules Admit Phy: Ordering Phy: Dawson Katz DO cc: ~ ABDOMEN AND PELVIS CT WITH IV CONTRAST CT DOSE: 795.11 mGycm HISTORY: Acute right upper quadrant abdominal pain with prior cholecystectomy. pain, s/p palma TECHNIQUE: Multiaxial CT images of the abdomen and pelvis were performed following the IV administration of 93 cc of Optiray 320, A dose lowering technique was utilized adhering to the principles of ALARA. COMPARISON STUDY: CT abdomen and pelvis 01/24/2020 FINDINGS: Calcified granuloma of the lateral basal segment right lower lobe. There is no pneumatosis or pneumoperitoneum. Imaged inferior cardiac chambers are unremarkable. Coronary artery and aortic annular calcifications. Calcified granulomata of the spleen. The spleen is mildly enlarged, 13.8 cm. Unremarkable adrenal glands and pancreas. No pancreatic ductal dilation. Pneumobilia is noted with moderate intrahepatic biliary ductal dilation, improved from comparison with a common bile duct stent, distal tip terminating within the duodenum. The gallbladder appears surgically absent. No residual choledocholithiasis identified. Trace edema/fluid is noted within the sujit hepatis. No drainable fluid collection. There are a few bilateral renal cysts noted measuring up to 3.3 cm on the left. No obstructive uropathy. Urinary bladder diverticula with wall thickening and trabeculation suggest sequela of chronic bladder outlet obstruction. Mild prostamegaly. Calcified plaque of the abdominal aorta. Unchanged 3 mm intrarenal aneurysm. No adenopathy. Small hiatal hernia. Moderate debris-filled distended stomach. There are multiple dilated air and fluid-filled loops of small bowel within the abdomen and pelvis measuring up to 4.1 cm. There is moderate fecal retention. Postoperative changes of prior right hemicolectomy. Stool-filled loops of ileum are noted with transition point present within the abdominal right lower quadrant, image 246 series 3. Decompressed bowel seen distally. Degenerative changes of the spine, pelvis and hips. Postoperative changes involve the posterior elements at the lumbosacral junction. No acute fracture. IMPRESSION: 1. High-grade small bowel obstruction with transition point present within the abdominal right lower quadrant, likely secondary to small bowel adhesions. 2. No pneumatosis or pneumoperitoneum. 3. Prior cholecystectomy with satisfactory positioning of the common bile duct stent. Moderate biliary ductal dilation has improved from comparison. 4. No postoperative drainable fluid collection. 5. Unchanged 3 mm infrarenal abdominal aortic aneurysm. 6. Additional findings as above. ACT 112: Negative or not required by law. The above report was generated using voice recognition software. It may contain grammatical, syntax or spelling errors. Electronically signed by: Elvin Hercules M.D. 02/27/2020 6:46 PM Dictated: 02/27/201833 Transcribed: 02/27/201833 [place], [place] [phone] XRay Report Patient: JOSELO EUBANKS EAdmit Date: 02/27/20 MR#: [id number]: [address] Acct ID:[id number]: [facility] Zip: [place] [address] Age: 84Location: ED Sex: M Room/Bed: Att Phy:Diagnosis: BOWEL OBSTRUCTION Capri Phy: Arron Austin MDService Date: 02/27/20 Fam Phy:Interpreting Phy: Theo Hercules Admit Phy: Ordering Phy: Dawson Katz DO cc: ~ XR chest 1V portable HISTORY: 84 years-old Male abd pain acute generalized abdominal pain COMPARISON: CT abdomen and pelvis 01/24/2020 TECHNIQUE: Portable AP view of the chest FINDINGS: Cardiac silhouette is upper limits of normal in size. Scattered pulmonary calcified granulomata redemonstrated. Moderate hemidiaphragmatic elevation. No pneumothorax, pleural effusion, airspace consolidation or overt pulmonary edema. Degenerative changes of the shoulders and spine. IMPRESSION: No acute process. ACT 112: Negative or not required by law. The above report was generated using voice recognition software. It may contain grammatical, syntax or spelling errors. Electronically signed by: Elvin Hercules M.D. 02/27/2020 6:00 PM Dictated: 02/27/201758 Transcribed: 02/27/20 1759 Code Status & VTE Plan Code Status Full code VTE Prophylaxis Plan VTE Prophylaxis will be ordered: Yes PG Care Time/CCT Total # of Minutes Spent Total Time Spent with Patient: Total time spent is greater than 50% in coordination of care (as documented) at patient's floor/unit and/or counseling patient: Coding Level of Care Code 03953 Initial Inpt Care Lvl 3 Diagnoses SBO (small bowel obstruction) K56.609 Choledocholithiasis K80.50 Pancreatitis due to common bile duct stone K85.90; K80.50 Renal insufficiency N28.9 Esophagitis, unspecified K20.9 Hypothyroidism E03.9
--- NOTE | 2020-02-27 20:21 | Surgery Consultation ---
Date of Consultation February 27, 2020 Assessment & Plan (1) SBO (small bowel obstruction): pt is a 84 year-old male who presents to ER with one week history mild abdominal pain with constipation, CT scan diagnosis; SBO, IMP: SBO, plan: I agree with hospitalist admit pt to hospital conservative treatment first, NPO, IV fluid, NG tube, control pain, repeat labs and KBU in am, dulcolax 10 IA now, Will F/U, D/W pt and his daughter possible surgery treatment if conservative treatment failure, they understood, they agree with the plan, I answered all questions, History of Present Illness History of Present Illness CHIEF COMPLAINT: Abdominal pain HPI: The patient is an 84-year-old male who presented to the emergency department for an evaluation of abdominal pain. The patient states that he is one-month status post cholecystectomy. He also had a very complicated course because he had a gall bladder stone in the duct system. He does have a stent in place. He denies having any fever. He states he was feeling some discomfort over the last few days. He had a follow-up appointment with surgery and had an x-ray which did show an increased fecal load but he has had bowel movements over the last 24 hours. He complains of nausea but no fever. He does complain of some constipation. He states the pain is mostly in his upper abdomen and worsened with any movement. He denies having any chest pain or shortness of breath. He denies having any rectal bleeding. The patient called his primary care physician and was instructed to go to the emergency department. I ( Agnieszka Barrios MD ) got a call for consult SBO, I reviewed pt's H/P, labs, CT scan with pt and his daughter, pt had one time vomiting at ER, mild abdominal pain, ROS: See above HPI for pertinent positives & negatives. A total of 10 systems reviewed and were otherwise negative. PAST MEDICAL HISTORY: See Below PAST SURGICAL HISTORY: See Below FAMILY HISTORY: See Below SOCIAL HISTORY: See Below HOME MEDICATIONS: See Below ALLERGIES: See Below Allergies Allergy/AdvReac Type Severity Reaction Status Date / Time No Known Allergies Allergy Verified 02/27/20 17:33 Home Medications Home Medications Medication Instructions Recorded Confirmed Type cholecalciferol (vitamin D3) 50 2,000 units PO DAILY cap 02/28/19 02/27/20 History mcg (2,000 unit) capsule ferrous sulfate 325 mg (65 mg 325 mg PO BID #180 tab 02/28/19 02/27/20 History iron) tablet multivitamin 1 tab PO DAILY 02/28/19 02/27/20 History levothyroxine 50 mcg tablet 50 mcg PO DAILY #90 tab 08/19/19 02/27/20 Rx omeprazole 20 mg capsule,delayed 20 mg PO BID #180 cap 08/19/19 02/27/20 Rx release acetaminophen [Tylenol Arthritis 1,300 mg PO QAM 01/24/20 02/27/20 History Pain] Patient History Medical History Acute renal failure Basal cell carcinoma History of actinic keratosis History of colon cancer Pneumonia Urinary frequency Weakness Surgical History History of colon surgery History of colonoscopy History of inguinal hernia repair, bilateral Hx laparoscopic cholecystectomy (01/26/20) Laparoscopic Cholecystectomy with Cholangiogram, Lysis of Extensive Adhesions Dr. Huffman 01/26/2020 Family History Father , Age 72 No problems noted. Mother , Age 82 No problems noted. Family/Other Prostate cancer Social History Smoking Status: Never smoker Age Started Using Tobacco: 18; Age Quit Using Tobacco: 42; Hx Alcohol Use: No Hx Substance Use: No Preferred Language: Azerbaijani Communication Ability: Effective Esthetician/Owner Required: No Beliefs That Will Affect Care: None marital status: / Current Living Situation: Alone current occupational status: retired Feels Safe at Home: Yes Review of Systems Review of Systems: All systems reviewed & are unremarkable except as noted in HPI & below Constitutional: as per Subjective / HPI Eyes: as per Subjective / HPI Ear, Nose, Mouth, Throat: as per Subjective / HPI Respiratory: as per Subjective / HPI Cardiovascular: as per Subjective / HPI Additional Comments: HTN, Gastrointestinal: as per Subjective / HPI S/P laparosocpic cholecystectomy one month ago, right colectomy 12 years ago, for colon cancer Genitourinary: + as per Subjective / HPI and + problem reported (BPH, renal insufficiency) Musculoskeletal: as per Subjective / HPI Integumentary: as per Subjective / HPI Neurologic: as per Subjective / HPI Psychiatric: as per Subjective / HPI Endocrine: as per Subjective / HPI hypothyroidism Hematologic / Lymphatic: as per Subjective / HPI Allergy / Immunological: as per Subjective / HPI Physical Exam Constitutional: WD/WN, vitals as above well developed and well nourished Eyes: PERRL, conjunctivae normal, anicteric sclerae ENMT: external ear and nose normal, oropharynx normal Neck: trachea midline, no thyromegaly Respiratory: normal respiratory effort, lungs clear to auscultation normal respiratory effort Cardiovascular: RRR, no murmur, no edema Rate/Rhythm: regular rate and regular rhythm Heart Sounds: normal S1 and normal S2 Gastrointestinal (Abdomen): normal bowel sounds, soft, nontender, no hepatosplenomegaly Percussion/Palpation: + abdomen tender and abdomen soft mild tenderness, no rebound pain, BS +, mild distend, Musculoskeletal: no cyanosis or clubbing, extremities motor strength 5/5 Skin: no rashes, warm and dry Neurologic: patellar DTR's 2+ bilat, sensation intact Psychiatric: Orientation: alert and oriented x 3 Results & Data Vital Signs (Past 12 Hours) Vital Signs Temp Pulse Pulse Resp BP BP Pulse Ox 02/27/20 19:30 61 21 153/75 H 97 02/27/20 18:46 64 18 152/73 H 97 02/27/20 17:04 96 02/27/20 15:56 36.6 C 65 18 125/70 96 Laboratory Results Abnormal lab results 02/27/20 02/27/20 02/27/20 Range/Units 17:19 17:19 17:27 RBC 4.38 L (4.7-6.1) M/uL Hgb 13.5 L (14.0-18.0) g/dL POC Hgb 12.6 L (14.0-18.0) g/dl Hct 39.5 L (42-52) % POC Hct 37 L (42-52) % MPV 10.8 H (7.4-10.4) fL [place] # (Auto) 0.93 H (0.11-0.59) K/uL Eos # (Auto) 0.51 H (0-0.5) K/uL Immature Gran # (Auto) 0.06 H (0.00-0.02) K/uL POC Chloride 100 L (101-112) mmol/L POC BUN 19 H (7-18) mg/dl POC Creatinine 1.4 H (0.6-1.3) mg/dl POC Glucose (other) 101 H (70-99) mg/dl AST 12 L (15-37) U/L Diagnostic Findings ABDOMEN AND PELVIS CT WITH IV CONTRAST CT DOSE: 795.11 mGycm HISTORY: Acute right upper quadrant abdominal pain with prior cholecystectomy. pain, s/p palma TECHNIQUE: Multiaxial CT images of the abdomen and pelvis were performed following the IV administration of 93 cc of Optiray 320, A dose lowering technique was utilized adhering to the principles of ALARA. COMPARISON STUDY: CT abdomen and pelvis 01/24/2020 FINDINGS: Calcified granuloma of the lateral basal segment right lower lobe. There is no pneumatosis or pneumoperitoneum. Imaged inferior cardiac chambers are unremarkable. Coronary artery and aortic annular calcifications. Calcified granulomata of the spleen. The spleen is mildly enlarged, 13.8 cm. Unremarkable adrenal glands and pancreas. No pancreatic ductal dilation. Pneumobilia is noted with moderate intrahepatic biliary ductal dilation, improved from comparison with a common bile duct stent, distal tip terminating within the duodenum. The gallbladder appears surgically absent. No residual choledocholithiasis identified. Trace edema/fluid is noted within the sujit hepatis. No drainable fluid collection. There are a few bilateral renal cysts noted measuring up to 3.3 cm on the left. No obstructive uropathy. Urinary bladder diverticula with wall thickening and trabeculation suggest sequela of chronic bladder outlet obstruction. Mild prostamegaly. Calcified plaque of the abdominal aorta. Unchanged 3 mm intrarenal aneurysm. No adenopathy. Small hiatal hernia. Moderate debris-filled distended stomach. There are multiple dilated air and fluid-filled loops of small bowel within the abdomen and pelvis measuring up to 4.1 cm. There is moderate fecal retention. Postoperative changes of prior right hemicolectomy. Stool-filled loops of ileum are noted with transition point present within the abdominal right lower quadrant, image 246 series 3. Decompressed bowel seen distally. Degenerative changes of the spine, pelvis and hips. Postoperative changes involve the posterior elements at the lumbosacral junction. No acute fracture. IMPRESSION: 1. High-grade small bowel obstruction with transition point present within the abdominal right lower quadrant, likely secondary to small bowel adhesions. 2. No pneumatosis or pneumoperitoneum. 3. Prior cholecystectomy with satisfactory positioning of the common bile duct stent. Moderate biliary ductal dilation has improved from comparison. 4. No postoperative drainable fluid collection. 5. Unchanged 3 mm infrarenal abdominal aortic aneurysm. 6. Additional findings as above.
[2020-02-27] MEDS ORDERED: bisacodyL 10 MG SUPP PR STA (20:27)
[2020-02-27] MEDS ORDERED: bisacodyL 10 MG SUPP PR ONE (20:57)
[2020-02-27] MEDS ORDERED: ONDANSETRON INJ 2 MG/ML 2 ML VIAL IV PRN (21:38)
[2020-02-27] MEDS ORDERED: PROCHLORPERAZINE 10 MG in SYRINGE 8 ML IV PRN (21:38)
[2020-02-27] MEDS: FAMOTIDINE 20 MG in SYRINGE 3 ML IV SCH (22:06)
[2020-02-27] MEDS: NSS + 20MEQ KCL 20 MEQ/1,000 ML BAG IV SCH (22:06)
[2020-02-27] MEDS: HYDROmorphone INJ 0.5 MG/0.5 ML SYR IV PRN (22:16)
[2020-02-28] MEDS: PIPERACILLIN/TAZOBACTAM 3.375 GM in DEXTROSE 5% 100 ML IV SCH ×4 (00:07→23:57)
[2020-02-28] MEDS: HYDROmorphone INJ 0.5 MG/0.5 ML SYR IV PRN ×2 (01:23→04:20)
[2020-02-28] MEDS: NSS + 20MEQ KCL 20 MEQ/1,000 ML BAG IV SCH ×2 (08:17→18:46)
[2020-02-28 08:42] LABS: Hematocrit (blood only) 39.1 % (42-52); Hemoglobin 13.7 g/dL (14.0-18.0); Mean Corpuscular Hemoglobin 31.9 pg (25-34); Mean Corpuscular Volume 90.9 fL (80-100); Mean Platelet Volume 10.5 fL (7.4-10.4); Platelet Count 212 K/uL (130-400); RDW Coefficient of Variation 13.6 % (11.5-14.5); RDW Standard Deviation 44.6 fL (36.4-46.3); White Blood Count 9.65 K/uL (4.8-10.8)
--- NOTE | 2020-02-28 09:13 | XRay Report ---
KUB HISTORY: Follow up study in a patient with small bowel obstruction sbo COMPARISON: CT abdomen and pelvis 02/27/2020 FINDINGS: Common bile duct stent redemonstrated. Surgical clips of the abdominal right upper quadrant . Enteric tube distal tip projects in the region of the gastric cardia with side-port in the distal e sophagus. There are persistent dilated loops of small bowel within the central abdomen which have mil dly decreased from comparison. There is no pneumatosis or pneumoperitoneum identified. Calcific granu lomata of the spleen. No urolith. Contrast is noted within the urinary bladder. Degenerative changes of the spine, pelvis and hips. Mild right hemidiaphragmatic elevation. IMPRESSION: 1. Distal tip of enteric tube projects over the proximal stomach with side-port in the distal esophag us. This could be advanced several centimeters. 2. Persistent small bowel dilation, mildly improved from comparison. 3. Unchanged positioning of the common bile duct stent. ACT 112: Negative or not required by law. The above report was generated using voice recognition software. It may contain grammatical, syntax o r spelling errors. Electronically signed by: Elvin Hercules M.D. 02/28/2020 9:12 AM
[2020-02-28 09:30] LABS: BUN Creatinine Ratio 11.8 (10-20); Bilirubin,Total 0.8 mg/dl (0.2-1); Calcium 8.4 mg/dl (8.5-10.1); Creatinine Clr Calc Pharmacy 45.1 ml/min; Est GFR (African American) 57.8; Est GFR (Non-African American) 49.9; Globulin 3.1 gm/dl (2.5-4.0); Potassium 4.4 mmol/L (3.5-5.1); Total Protein 6.1 gm/dl (6.4-8.2)
--- NOTE | 2020-02-28 10:14 | Surgery Progress Note ---
Date of Service February 28, 2020 Assessment & Plan (1) SBO (small bowel obstruction): Patient here with SBO. Past abdominal surgical history includes lap palma 01/26/[address] Huffman, Inguinal hernia repair, and a colon resection (ostomy + reversal) in 2007 for colon ca - WBC: 9, Cr: 1.2 (1.3), Vital signs stable with HR: 50-60's - patient currently reports improvement in his symptoms. On exam he is still mildly distended with some right sided tenderness. starting to pass some flatus - NGT output 270cc bilious fluid - KUB this AM revealed persistent small bowel dilation that is mildly improved. NGT could be advanced a few cm as side port within distal esophagus - Would continue current measures for now with NGT and NPO with IVF Subjective Patient states he is feeling much better than yesterday. Lying in bed he denies any abdominal pain, n/v. Said he passed some gas and a small stool today. Physical Exam Physical Exam: awake/alert Gastrointestinal (Abdomen): Inspection/Auscultation: + abdomen distended (mild) and + abdominal surgical scar (from prior lap palma, and colon resection) Percussion/Palpation: + abdomen tender (ttp RLQ) and abdomen soft Results & Data Vital Signs (Past 12 Hours) Vital Signs Temp Pulse Resp BP Pulse Ox 02/28/20 07:25 36.8 C 57 L 14 133/73 96 02/27/20 23:17 36.6 C 57 L 14 155/83 H 94 PG Care Time/CCT Total # of Minutes Spent Total Time Spent with Patient: Total time spent is greater than 50% in coordination of care (as documented) at patient's floor/unit and/or counseling patient: Coding Level of Care Code 54864 Subseq Hosp Care Lvl 1 Diagnoses SBO (small bowel obstruction) K56.609
[2020-02-28] MEDS: FAMOTIDINE 20 MG in SYRINGE 3 ML IV SCH ×2 (10:29→21:07)
--- NOTE | 2020-02-28 11:05 | Electrocardiogram Report ---
Test Reason : Blood Pressure : / mmHG Vent. Rate : 057 BPM Atrial Rate : 057 BPM P-R Int : 176 ms QRS Dur : 088 ms QT Int : 436 ms P-R-T Axes : 070 056 057 degrees QTc Int : 424 ms Sinus bradycardia with Premature supraventricular complexes Otherwise normal ECG When compared with ECG of 24-JAN-2020 20:49, Premature ventricular complexes are no longer Present Vent. rate has decreased BY 52 BPM Nonspecific T wave abnormality no longer evident in Lateral leads Confirmed by Zana Salazar ([id number]) on 02/28/2020 11:04:38 AM Referred By: Arron Austin Confirmed By:José Salazar
--- NOTE | 2020-02-28 13:50 | Hospitalist Progress Note ---
Date of Service February 28, 2020 Assessment & Plan (1) SBO (small bowel obstruction): High-grade small bowel obstruction with transition point in right lower quadrant likely secondary to adhesions. KUB this morning with small improvement but SBO persists Continue NPO, NGT to LIS Continue NSS at 100 mils per hour, Zosyn 3.375 mg IV every 8 hours Dilaudid 0.2 mg IV every 3 hours PRN severe pain General surgery consult - conservative measures for now (2) Choledocholithiasis: As noted above, status post biliary sphincterotomy and balloon sphincteroplasty with removal of CBD stone, placement of 1 plastic biliary stent, and notice of ascending cholangitis during 01/24 ERCP. Follow-up plan by gastroenterology was to have repeat ERCP in 4 weeks to remove stent (3) Pancreatitis due to common bile duct stone: See above, not evident on CT, no abdominal pain today, lipase normal on admission (4) Renal insufficiency: Creatinine at baseline Repeat bmp am (5) Esophagitis, unspecified: Hold omeprazole 20 mg p.o. twice daily. Placed on famotidine 20 mg IV every 12 hours while npo (6) Hypothyroidism: On levothyroxine 50 mcg p.o. - will change to IV 25 mg while npo (7) DVT prophylaxis: SCDs, heparin subq Daughter Gregorio updated over the phone Admission and Anticipated Discharge Date Admission Date: February 27, 2020 Subjective Mr. Pemberton is feeling much better today than yesterday. He reports small bowel movement this morning. Continues with NG tube. ROS Constitutional: no chills, aches, sweats or fever Respiratory: no sob,cough, sputum, or wheezing Cardiac: no chest pain, palpitations, edema, orthopnea or lightheadedness GI: no abdominal pain, nausea, vomiting, diarrhea or constipation : no dysuria or hesitancy Extremities: no joint pain or weakness Skin: no rash All other systems reviewed and negative Physical Exam Physical Exam: General: no distress Eyes: normal inspection, PERLL Respiratory: chest non tender, clear to auscultation, normal breath sounds, no respiratory distress, no accessory muscle use Cardiac: regular rate and rhythm, no rub or gallop, no murmur, no edema, no jvd GI/: active bowel sounds, no abd pain or tenderness, soft, non distended Extremities: normal range of motion, normal strength, non tender Neuro/Psych: alert and oriented x 3, normal mood and affect Skin: normal color, dry Results & Data Results & Data ([facility]) Vital Signs (Past 12 Hours) Vital Signs Temp Pulse Resp BP Pulse Ox 02/28/20 07:25 36.8 C 57 L 14 133/73 96 PG Care Time/CCT Total # of Minutes Spent Total Time Spent with Patient: Total time spent is greater than 50% in coordination of care (as documented) at patient's floor/unit and/or counseling patient: Coding Level of Care Code 68772 Subseq Hosp Care Lvl 2 Diagnoses SBO (small bowel obstruction) K56.609 Choledocholithiasis K80.50 Pancreatitis due to common bile duct stone K85.90; K80.50 Renal insufficiency N28.9 Esophagitis, unspecified K20.9 Hypothyroidism E03.9 DVT prophylaxis Z29.9
[2020-02-28] MEDS: HEPARIN SOD 5,000 UNIT/0.5 ML VIAL SQ SCH (21:07)
[2020-02-29] MEDS: NSS + 20MEQ KCL 20 MEQ/1,000 ML BAG IV SCH ×3 (04:02→21:50)
[2020-02-29 06:02] LABS: Hematocrit (blood only) 36.4 % (42-52); Hemoglobin 12.6 g/dL (14.0-18.0); Mean Corpuscular Hemoglobin 31.2 pg (25-34); Mean Corpuscular Hgb Conc 34.6 g/dL (32-36); Mean Corpuscular Volume 90.1 fL (80-100); Mean Platelet Volume 10.6 fL (7.4-10.4); Platelet Count 183 K/uL (130-400); RDW Coefficient of Variation 13.6 % (11.5-14.5); RDW Standard Deviation 44.3 fL (36.4-46.3); Red Blood Count 4.04 M/uL (4.7-6.1); White Blood Count 6.28 K/uL (4.8-10.8)
[2020-02-29 06:30] LABS: BUN Creatinine Ratio 9.4 (10-20); Calcium 8.4 mg/dl (8.5-10.1); Creatinine Clr Calc Pharmacy 43.4 ml/min; Est GFR (African American) 55.2; Est GFR (Non-African American) 47.6
--- NOTE | 2020-02-29 07:54 | Hospitalist Progress Note ---
Date of Service February 29, 2020 Assessment & Plan (1) SBO (small bowel obstruction): High-grade small bowel obstruction with transition point in right lower quadrant likely secondary to adhesions. KUB 8/5 - SBO persists Continue NPO, NGT to LIS per surgery Continue NSS at 100 mils per hour, Zosyn 3.375 mg IV every 8 hours Dilaudid 0.2 mg IV every 3 hours PRN severe pain General surgery consult - conservative measures for now (2) Choledocholithiasis: As noted above, status post biliary sphincterotomy and balloon sphincteroplasty with removal of CBD stone, placement of 1 plastic biliary stent, and notice of ascending cholangitis during 01/24 ERCP. Follow-up plan by gastroenterology was to have repeat ERCP in 4 weeks to remove stent (3) Pancreatitis due to common bile duct stone: See above, not evident on CT, no abdominal pain today, lipase normal on admission (4) Renal insufficiency: Creatinine at baseline Repeat bmp am (5) Esophagitis, unspecified: Hold omeprazole 20 mg p.o. twice daily. Continue famotidine 20 mg IV every 12 hours while npo (6) Hypothyroidism: On levothyroxine 50 mcg p.o. - IV 25 mcg while npo (7) CKD (chronic kidney disease), stage III: At baseline, avoid nephrotoxins where possible (8) DVT prophylaxis: SCDs, heparin subq Admission and Anticipated Discharge Date Admission Date: February 27, 2020 Subjective Mr. Pemberton continues to feel improved over when he came in. He has no complaints ROS Constitutional: no chills, aches, sweats or fever Respiratory: no sob,cough, sputum, or wheezing Cardiac: no chest pain, palpitations, edema, orthopnea or lightheadedness GI: no abdominal pain, nausea, vomiting, diarrhea or constipation : no dysuria or hesitancy Extremities: no joint pain or weakness Skin: no rash All other systems reviewed and negative Physical Exam Physical Exam: General: no distress Eyes: normal inspection, PERLL Respiratory: chest non tender, clear to auscultation, normal breath sounds, no respiratory distress, no accessory muscle use Cardiac: regular rate and rhythm, no rub or gallop, no murmur, no edema, no jvd GI/: active bowel sounds, no abd pain or tenderness, soft, non distended Extremities: normal range of motion, normal strength, non tender Neuro/Psych: alert and oriented x 3, normal mood and affect Skin: normal color, dry Results & Data Results & Data ([facility]) Vital Signs (Past 12 Hours) Vital Signs Temp Pulse Resp BP Pulse Ox 02/28/20 23:23 36.8 C 58 L 16 150/89 H 97 PG Care Time/CCT Total # of Minutes Spent Total Time Spent with Patient: Total time spent is greater than 50% in coordination of care (as documented) at patient's floor/unit and/or counseling patient: Coding Level of Care Code 75755 Subseq Hosp Care Lvl 2 Diagnoses SBO (small bowel obstruction) K56.609 Choledocholithiasis K80.50 Pancreatitis due to common bile duct stone K85.90; K80.50 Renal insufficiency N28.9 Esophagitis, unspecified K20.9 Hypothyroidism E03.9 CKD (chronic kidney disease), stage III N18.3 DVT prophylaxis Z29.9
[2020-02-29] MEDS: PIPERACILLIN/TAZOBACTAM 3.375 GM in DEXTROSE 5% 100 ML IV SCH ×3 (09:00→23:19)
--- NOTE | 2020-02-29 09:03 | Surgery Progress Note ---
Date of Service February 29, 2020 Assessment & Plan (1) SBO (small bowel obstruction): Patient here with SBO Starting to have some meaningful bowel function Denies abdominal pain, n/v Abdomen softer and less distended today NGT: 120cc bilious output Will obtain KUB prior to making decision about removing NGT Subjective Patient states he is feeling well. Denies abdominal pain, n/v. Says he had a decent BM yesterday around 7pm and a small BM this AM. Continues to pass flatus. Says he is hungry. Physical Exam Physical Exam: awake/alert Gastrointestinal (Abdomen): Inspection/Auscultation: abdomen not distended Percussion/Palpation: + abdomen tender (mild discomfort to palpation, right sided abd. ) and abdomen soft Results & Data Vital Signs (Past 12 Hours) Vital Signs Temp Pulse Resp BP Pulse Ox 02/29/20 07:42 36.6 C 64 16 146/67 H 97 02/28/20 23:23 36.8 C 58 L 16 150/89 H 97 PG Care Time/CCT Total # of Minutes Spent Total Time Spent with Patient: Total time spent is greater than 50% in coordination of care (as documented) at patient's floor/unit and/or counseling patient: Coding Level of Care Code 78772 Subseq Hosp Care Lvl 1 Diagnoses SBO (small bowel obstruction) K56.609
[2020-02-29] MEDS: HEPARIN SOD 5,000 UNIT/0.5 ML VIAL SQ SCH ×2 (09:46→20:40)
[2020-02-29] MEDS: LEVOTHYROXINE SODIUM 25 MCG in SYRINGE 0 ML IV SCH (09:50)
[2020-02-29] MEDS: FAMOTIDINE 20 MG in SYRINGE 3 ML IV SCH ×2 (09:52→20:40)
--- NOTE | 2020-02-29 10:20 | XRay Report ---
KUB HISTORY: Follow up study in a patient with small bowel obstruction eval bowel pattern, here with SBO , passing BMs COMPARISON: KUB 02/28/2020, CT 02/27/2020 FINDINGS: An enteric tube is noted distal tip terminating in the expected location of the proximal st omach with side-port in the distal esophagus. Common bile duct stent is unchanged in positioning. Edwar gical clips of the right upper quadrant abdomen and central lower abdomen redemonstrated. Mildly dila angie loops of small bowel throughout the abdomen are redemonstrated and have not significantly changed measuring up to approximately 3.3 cm. No definite pneumatosis or pneumoperitoneum. No urolith or acu te fracture. IMPRESSION: 1. Persistent air-filled mildly dilated loops of small bowel suggestive of ongoing obstruction. 2. Stable positioning of the enteric tube and common bile duct stent. ACT 112: Negative or not required by law. The above report was generated using voice recognition software. It may contain grammatical, syntax o r spelling errors. Electronically signed by: Elvin Hercules M.D. 02/29/2020 10:18 AM
--- NOTE | 2020-02-29 11:56 | Electrocardiogram Report ---
Test Reason : Blood Pressure : / mmHG Vent. Rate : 064 BPM Atrial Rate : 064 BPM P-R Int : 168 ms QRS Dur : 082 ms QT Int : 416 ms P-R-T Axes : 054 018 065 degrees QTc Int : 429 ms Sinus rhythm with Premature atrial complexes with Aberrant conduction Otherwise normal ECG When compared with ECG of 27-FEB-2020 17:01, No significant change was found Confirmed by Zana Salazar ([id number]) on 02/29/2020 11:56:46 AM Referred By: Arron Austin Confirmed By:José Salazar
--- NOTE | 2020-03-01 07:24 | Surgery Progress Note ---
Date of Service March 01, 2020 Assessment & Plan (1) SBO (small bowel obstruction): At this point we will advance the diet to a low fiber diet may want to reevaluate him later today if he has moved the bowels again and there is no complaints with the oral intake may be able to be discharged later this afternoon or watch him until tomorrow I recommended that he be kept on a low fiber diet once he is home Present on Admission?: Yes Subjective Patient resting comfortably in bed without any pain states yesterday he tolerated his liquids without any problem he has had a couple bowel movements last few days but is passing significant amount of flatus Physical Exam Physical Exam: As stated above he was resting comfortably in bed The abdomen is completely benign much softer than yesterday no tenderness no guarding Results & Data Vital Signs (Past 12 Hours) Vital Signs Temp Pulse Resp BP Pulse Ox 03/01/20 07:18 36.5 C 60 15 159/83 H 96 02/29/20 23:18 36.4 C L 54 L 16 136/87 96 PG Care Time/CCT Total # of Minutes Spent Total Time Spent with Patient: Total time spent is greater than 50% in coordination of care (as documented) at patient's floor/unit and/or counseling patient: Coding Level of Care Code 06465 Subseq Hosp Care Lvl 3 Diagnoses SBO (small bowel obstruction) K56.609
[2020-03-01 07:52] LABS: Hematocrit (blood only) 36.9 % (42-52); Hemoglobin 12.4 g/dL (14.0-18.0); Mean Corpuscular Hemoglobin 30.4 pg (25-34); Mean Corpuscular Hgb Conc 33.6 g/dL (32-36); Mean Corpuscular Volume 90.4 fL (80-100); Mean Platelet Volume 10.8 fL (7.4-10.4); Platelet Count 189 K/uL (130-400); RDW Coefficient of Variation 13.5 % (11.5-14.5); RDW Standard Deviation 44.2 fL (36.4-46.3); Red Blood Count 4.08 M/uL (4.7-6.1); White Blood Count 4.89 K/uL (4.8-10.8)
[2020-03-01 08:22] LABS: Albumin Level 2.9 gm/dl (3.4-5.0); BUN Creatinine Ratio 6.2 (10-20); Calcium 8.8 mg/dl (8.5-10.1); Creatinine Clr Calc Pharmacy 38.3 ml/min; Est GFR (African American) 47.4; Est GFR (Non-African American) 40.9; Potassium 3.9 mmol/L (3.5-5.1)
[2020-03-01 08:25] LABS: Total Protein 5.9 gm/dl (6.4-8.2)
[2020-03-01] MEDS: PIPERACILLIN/TAZOBACTAM 3.375 GM in DEXTROSE 5% 100 ML IV SCH ×2 (09:00→16:09)
[2020-03-01] MEDS: LEVOTHYROXINE SODIUM 25 MCG in SYRINGE 0 ML IV SCH (09:06)
[2020-03-01] MEDS: FAMOTIDINE 20 MG in SYRINGE 3 ML IV SCH (09:06)
[2020-03-01] MEDS: HEPARIN SOD 5,000 UNIT/0.5 ML VIAL SQ SCH (09:06)
--- NOTE | 2020-03-01 17:21 | Discharge Summary ---
Date of Service March 01, 2020 Admission HPI Per Admitting Provider The patient is a 84-year-old male with a past medical history including acute on chronic kidney failure, pancreatitis due to, bile duct stone, choledocholithiasis, hypothyroidism, hypertension, BPH, chronic kidney disease, colon cancer, esophagitis and rhabdomyolysis. His most recent admission was from 01/23-01/29 for choledocholithiasis. On 01/24 he underwent biliary sphincterotomy and balloon sphincteroplasty with stone removal and placement of 1 plastic biliary stent. A sending cholangitis was noted at that time as well. Plan from GI was to have repeat ERCP in approximately 4 weeks to remove stent. He underwent cholecystectomy on 01/25, and was ultimately discharged on 01/29. Principal Diagnosis SBO Discharge Exam Constitutional WD/WN, vitals as above Respiratory normal respiratory effort, lungs clear to auscultation Cardiovascular RRR, no murmur, no edema Gastrointestinal (Abdomen) Inspection/Auscultation: abdomen normal to inspection and normal bowel sounds; abdomen not distended Percussion/Palpation: abdomen soft; abdomen nontender Musculoskeletal no cyanosis or clubbing, extremities motor strength 5/5 Skin no rashes, warm and dry Neurologic moves all extremities and awake Psychiatric A+Ox3, euthymic affect Discharge Data Allergies Allergy/AdvReac Type Severity Reaction Status Date / Time No Known Allergies Allergy Verified 02/27/20 17:33 Consultations 02/27/20 18:54 Consult General Surgery Stat 02/27/20 18:56 ED Decision to Admit Stat 02/27/20 21:38 Consult Case Management - Discharge Planning Routine Ordered Studies 02/27/20 16:32 CT abd pelvis IV con only Stat Hospital Course (1) SBO (small bowel obstruction): High-grade small bowel obstruction with transition point in right lower quadrant likely secondary to adhesions. General surgery consult - conservative measures, low fiber diet, ok for discharge this evening (2) Choledocholithiasis: As noted above, status post biliary sphincterotomy and balloon sphincteroplasty with removal of CBD stone, placement of 1 plastic biliary stent, and notice of ascending cholangitis during 01/24 ERCP. Stent placement is satisfactory on CT with improved ductal dilation Follow-up plan by gastroenterology was to have repeat ERCP in 4 weeks to remove stent (3) Pancreatitis due to common bile duct stone: During previous admission - Not evident on CT this admission, no abdominal pain today, lipase normal on admission (4) Renal insufficiency: Creatinine at baseline which appears to be around 1.3 - 1.5 - 1.52 today (5) Esophagitis, unspecified: Continue home omeprazole (6) Hypothyroidism: Continue home levothyroxine (7) CKD (chronic kidney disease), stage III: At baseline, avoid nephrotoxins where possible (8) DVT prophylaxis: SCDs, heparin subq (9) AAA (abdominal aortic aneurysm): 3 cm AAA again seen on CT and is unchanged from January 23 CT Follow up with pcp and consider re-imaging in 6-12 months No need for vascular surgery involvement at this size and stability Total Time Total Time Spent Total Time Spent (In Minutes): greater than 30 mintues Discharge Plan Discharge Items Patient Disposition: Home - Self-Care Reason For Visit: HIGH GRADE SBO Discharge Diagnosis: Small bowel obstruction Condition on Discharge: Good Activity: Resume your previous activity Non-emergency contact: Primary Care Provider Call non-emergency contact if: you have any medication questions, your symptoms worsen and you have a fever Follow-up/Referrals: Arron Austin MD [Primary Care Provider] - (follow up in one week ) Diet: Low Fiber Addtl Attending Provider Instructions: (1) SBO (small bowel obstruction): Your bowel obstruction is resolving. You should maintain a low fiber diet. Please follow up with your provider next week. You should return to the hospital if your symptoms return. (2) Choledocholithiasis: Please keep your follow-up with gastroenterology in 4 weeks to remove stent (3) Abdominal Aortic Aneurysm This was again seen on your CT (was noted on your CT in December as well). Because it is below 5.5 cm, and has not changed from the last CT, it is not recommended that you have surgery. You're doctor may want to re-image this in 6-12 months. Please talk with your doctor about surveillance Pending Studies at Discharge: No Stand-Alone Forms: [employer], Smoking Cessation Medications and DC Order Prescriptions: Continued levothyroxine 50 mcg tablet 50 mcg PO DAILY Qty: 90 RF: 1 omeprazole 20 mg capsule,delayed release(DR/EC) 20 mg PO BID Qty: 180 RF: 3 ferrous sulfate 325 mg (65 mg iron) tablet 325 mg PO BID Qty: 180 RF: 0 multivitamin [Multiple Vitamins] tablet 1 tab PO DAILY RF: 0 cholecalciferol (vitamin D3) 2,000 unit capsule 2,000 units PO DAILY RF: 0 acetaminophen [Tylenol Arthritis Pain] 650 mg Tablet Extended Release 1,300 mg PO QAM RF: 0 Discharge Orders: Discharge Order (Routine); Ordered 03/01/20 Ordered By: Wendy Harris Admission Data Admit Date/Time: 02/27/20 19:47 Attending Provider: Anthony Roth Admit Provider: Michael Marroquin Primary Care Provider: Arron Austin Other Providers: Agnieszka Barrios ; Anthony Roth ; [facility] Coding Level of Care Code D/C Day Management >30 mins Diagnoses SBO (small bowel obstruction) K56.609 Choledocholithiasis K80.50 Pancreatitis due to common bile duct stone K85.90; K80.50 Renal insufficiency N28.9 Esophagitis, unspecified K20.9 Hypothyroidism E03.9 CKD (chronic kidney disease), stage III N18.3 DVT prophylaxis Z29.9 AAA (abdominal aortic aneurysm) I71.4
== END 2020-03-01 19:00 | disposition home health service (06) | DRG 390 ==
LOC: ED 15:38 → SUATTDRO 19:47 → 3N 19:47

== ENCOUNTER 2021-09-26 14:17 | Inpatient (IN) ==
[2021-09-26] MEDS ORDERED: MoRPHine SULFATE 4 MG/ML 1 ML CARP\\VIAL IV STA (14:44)
[2021-09-26] MEDS ORDERED: ACETAMINOPHEN 1000 MG/100 ML IV IV STA (14:44)
[2021-09-26] MEDS ORDERED: MoRPHine SULFATE 2 MG/ML CARP IV PRN (14:52)
[2021-09-26] MEDS ORDERED: MoRPHine SULFATE 4 MG/ML 1 ML CARP\\VIAL IV PRN ×2 (14:52→21:27)
--- NOTE | 2021-09-26 14:54 | Emergency Department Note ---
Impression & Plan Fall, Fracture of wrist, Closed hip fracture ED Provider Note NAME: JOSELO EUBANKS AGE: 86 SEX: M : 1935 ARRIVES VIA: Ambulance INFORMANT: Patient ED PROVIDER(S): Everardo Jimenez DO CHIEF COMPLAINT: Fall HPI: Patient is an 86-year-old male who presents the ER following a mechanical fall. He was walking on a path he normally uses. He slipped on the ice and fell onto his left side. He braced himself with his left arm. He is having 10 out of 10 pain in the left wrist as well as the left hip. He denies any his head or neck. No headache or neck change in vision. No chest pain, shortness of breath, nausea, vomiting, or diarrhea. No belly pain, back pain, or any other extremity pain other than the left leg and left wrist. ROS: See above HPI for pertinent positives & negatives. A total of 10 systems reviewed and were otherwise negative. PAST MEDICAL HISTORY:See Below PAST SURGICAL HISTORY:See Below FAMILY HISTORY:See Below SOCIAL HISTORY:See Below HOME MEDICATIONS:See Below ALLERGIES:See Below VITALS:See Below PHYSICAL EXAMINATION: GENERAL: Alert laying in bed moderate distress holding left wrist against chest HEAD: normal cephalic, atraumatic EYE EXAM: normal conjunctiva, PERRL and EOM's grossly intact OROPHARYNX: no exudate, no erythema, lips, buccal mucosa, and tongue normal and mucous membranes are moist NECK: supple, no nuchal rigidity, no adenopathy, non-tender CHEST: stable to compression anteriorly and posteriorly LUNGS: clear to auscultation. Normal chest wall mechanics HEART: no murmurs, S1 normal and S2 normal ABDOMEN: abdomen soft, non-tender, normo-active bowel sounds, no masses, no rebound or guarding. PELVIS: stable to compression anteriorly and posteriorly BACK: Back is symmetrical on inspection and there is no deformity, no midline tenderness, no CVA tenderness. UPPER EXTREMITIES: No tenderness throughout the entire right upper extremity. Radial pulses are 2 out of 4 bilaterally. No tenderness throughout the left humerus, elbow or proximal forearm. Tenderness and obvious deformity of the left distal forearm. DP 2 out of 4. Skin is intact. LOWER EXTREMITIES: No tenderness throughout the entire right lower extremity. No tenderness in the left ankle or knee. Left hip held in slight flexion and significant pain on palpation of left hip. NEURO EXAM: Normal sensorium, cranial nerves II-XII grossly intact, normal speech. GCS: 15. MEDICAL DECISION MAKING: Patient is an 6-year-old male who presents ER following mechanical fall while walking on ice. He fell onto his left hip and he is having left hip and wrist pain. IV was established blood work was obtained. Labs showed no significant leukocytosis or anemia. Denies any blood thinners. INR unremarkable. BMP along with LFTs were unremarkable. UA was clean. Covid negative. CT head was negative. X-rays of the wrist show left distal radial fracture with significant displacement. X-rays of the hip show left hip fracture. Discussed with EOC. Patient was given multiple doses of IV morphine. Wrist was [facility] by [facility] after admission. Discussed with hospitalist for further evaluation Triage Nursing notes reviewed. Limited review of prior medical records performed Vital Signs: reviewed and remarkable for HTN Differential diagnosis: Differential diagnoses include major intracranial, cervical, spinal, thoracic, abdominal, pelvic and neurologic injury. Fracture, contusion, sprain, strain, laceration, abrasions included as well. ER treatment provided: See below Diagnostics interpreted by me: ECG: none Cardiac Monitoring: An order was placed for continuous cardiac monitoring. The monitor shows a rate of 70 with sinus rhythm. Laboratory studies: As stated above and show below. Imaging studies: X-rays the left wrist show left distal radial fracture X-rays the pelvis show left hip fracture CT head was negative Consultation(s): [facility] who evaluated the patient at bedside and reduce the left wrist Discussed with Arron Bae for admission Procedures: none Critical Care: None Past Med/Surg History Medical History (Updated 09/26/21 @ 19:19 by Miko Medina M.D.) AAA (abdominal aortic aneurysm) <4 cm, small, under surveillance Anemia BPH (benign prostatic hyperplasia) Choledocholithiasis CKD (chronic kidney disease) stage III (ARETHA 12/2019- now back to baseline) GERD (gastroesophageal reflux disease) Hiatal hernia History of colon cancer 12 years ago s/p surgery/oral pill HTN (hypertension) per records Hx SBO 01/2020 Hypothyroidism Osteoporosis, unspecified Pancreatitis due to common bile duct stone hx Rhabdomyolysis remote hx after fall Seborrheic keratoses Urinary frequency Urinary incontinence Surgical History History of back surgery History of colon surgery History of colonoscopy History of esophagogastroduodenoscopy (EGD) History of inguinal hernia repair, bilateral History of tooth extraction Hx laparoscopic cholecystectomy Status post correction of deviated nasal septum Family History Father No problems noted. Mother Breast cancer Family/Other No problems noted. Sister Breast cancer Uncle Prostate cancer Denies family history of Ovarian cancer Myocardial infarction Colorectal cancer Social History (Updated 05/14/21 @ 13:13 by Enid Pantoja) Smoking Status: Former smoker Age Started Using Tobacco: 18; Age Quit Using Tobacco: 42; Second Hand Exposure: Yes; Hx Alcohol Use: Yes Alcohol type: beer Hx Substance Use: No Preferred Language: Cymraes Communication Ability: Effective Visual Impairment: No Limitations Hearing Ability: Hard of Hearing [place] [employer] Dredge Or Barge Required: No Beliefs That Will Affect Care: None marital status: / Current Living Situation: Alone current occupational status: retired Feels Safe at Home: Yes Dental Care, Regularly: No Physical Activity Frequency: Daily Seatbelt Use: always Sunscreen Use: Yes Assistive Devices: Denture - Upper, Denture - Lower and Glasses Allergies Allergies Allergy/AdvReac Type Severity Reaction Status Date / Time No Known Allergies Allergy Verified 09/26/21 15:00 Home Meds Home Medications Medication Instructions Recorded Confirmed cholecalciferol (vitamin D3) 50 2,000 units PO QAM cap 02/28/19 09/26/21 mcg (2,000 unit) capsule multivitamin (Multiple Vitamins) 1 tab PO QAM 02/28/19 09/26/21 ferrous sulfate 325 mg (65 mg 325 mg PO QAM #180 tab 03/14/20 09/26/21 iron) tablet acetaminophen 650 mg 1,300 mg PO QAM PRN 05/14/21 09/26/21 tablet,extended release (Tylenol Arthritis Pain) Previous Rx's Medication Instructions Recorded levothyroxine 50 mcg tablet 50 mcg PO DAILY #90 tab 08/13/21 (Euthyrox) omeprazole 20 mg capsule,delayed 20 mg PO DAILY #90 cap 08/13/21 release Results & Data (ED) Vital Signs Vital Signs - 24 hr 09/26/21 14:31 09/26/21 15:50 09/26/21 17:00 Temperature 36.9 C Temperature Source Oral Pulse Rate 87 Pulse Rate [Apical] 87 72 68 Pulse Rhythm Regular Pulse Rhythm [Apical] Regular Regular Regular Pulse Strength Normal Pulse Strength [Apical] Normal Normal Normal Respiratory Rate 18 18 18 Respiratory Effort / Characteristics Non-Labored Non-Labored Non-Labored Respiratory Depth Normal Normal Normal Respiratory Pattern Regular Regular Regular Blood Pressure 174/87 H Blood Pressure [Left Arm] 174/87 H 133/68 112/76 Blood Pressure Mean 116 Blood Pressure Mean [Left Arm] 116 89 88 Blood Pressure Position Lying Blood Pressure Position [Left Arm] Lying Lying Lying Pulse Oximetry 97 97 98 Oxygen Delivery Method Room Air Room Air Room Air Sepsis Recent Fever Within 48 Hours No Sepsis New/Unexplained Change in Mental Status No Sepsis Action Taken by Nursing No Action Required 09/26/21 18:30 09/26/21 20:12 Temperature Temperature Source Pulse Rate Pulse Rate [Apical] 87 73 Pulse Rhythm Pulse Rhythm [Apical] Regular Pulse Strength Pulse Strength [Apical] Normal Respiratory Rate 18 18 Respiratory Effort / Characteristics Non-Labored Non-Labored Respiratory Depth Normal Normal Respiratory Pattern Regular Blood Pressure Blood Pressure [Left Arm] 141/63 H 110/64 Blood Pressure Mean Blood Pressure Mean [Left Arm] 89 79 Blood Pressure Position Blood Pressure Position [Left Arm] Lying Pulse Oximetry 98 91 Oxygen Delivery Method Room Air Room Air Sepsis Recent Fever Within 48 Hours Sepsis New/Unexplained Change in Mental Status Sepsis Action Taken by Nursing Laboratory Data Result diagrams: 09/26/21 15:28 09/26/21 15:28 Lab Results 09/26/21 09/26/21 09/26/21 Range/Units 15:11 15:28 15:28 WBC 8.82 (4.8-10.8) K/uL RBC 4.33 L (4.7-6.1) M/uL Hgb 14.1 (14.0-18.0) g/dL Hct 39.5 L (42-52) % MCV 91.2 (80-100) fL MCH 32.6 (25-34) pg MCHC 35.7 (32-36) g/dL RDW Std Deviation 43.1 (36.4-46.3) fL RDW Coeff of Kel 12.9 (11.5-14.5) % Plt Count 216 (130-400) K/uL MPV 10.5 H (7.4-10.4) fL Immature Gran % (Auto) 0.3 % Neut % (Auto) 72.5 % Lymph % (Auto) 12.8 % [place] % (Auto) 10.9 % Eos % (Auto) 3.2 % Baso % (Auto) 0.3 % Neut # (Auto) 6.39 (1.4-6.5) K/uL Lymph # (Auto) 1.13 L (1.2-3.4) K/uL [place] # (Auto) 0.96 H (0.11-0.59) K/uL Eos # (Auto) 0.28 (0-0.5) K/uL Baso # (Auto) 0.03 (0-0.2) K/uL Immature Gran # (Auto) 0.03 H (0.00-0.02) K/uL PT 10.7 (9.0-12.0) Seconds INR 1.0 (0.9-1.1) APTT 26.7 (21.0-31.0) Seconds PTT Ratio 1.0 Sodium (136-145) mmol/L Potassium (3.5-5.1) mmol/L Chloride (98-107) mmol/L Carbon Dioxide (21-32) mmol/L Anion Gap (3-11) BUN (6-23) mg/dl Creatinine (0.6-1.4) mg/dl Est Cr Clr Drug Dosing ml/min Est GFR ( Amer) ml/min Est GFR (Non-Af Amer) ml/min BUN/Creatinine Ratio (10-20) Glucose (70-99(Fasting)) mg/dl Calcium (8.5-10.1) mg/dl Total Bilirubin (0.2-1.0) mg/dl AST (13-39) U/L ALT (7-52) U/L Alkaline Phosphatase (34-104) U/L Total Protein (6.0-8.3) gm/dl Albumin (3.4-5.0) gm/dl Globulin (2.5-4.0) gm/dl Albumin/Globulin Ratio (0.9-2) Urine Color Urine Appearance (Clear) Urine pH (4.5-7.5) Ur Specific [place] (1.000-1.030) Urine Protein (Negative) Urine Glucose (UA) (Negative) Urine Ketones (Negative) Urine Blood (Negative) Urine Nitrite (Negative) Urine Bilirubin (Negative) Urine Urobilinogen (Negative) Ur Leukocyte Esterase (Negative) SARS-CoV-2, RNA, NAAT NEGATIVE (NEGATIVE) 09/26/21 09/26/21 Range/Units 15:28 15:51 WBC (4.8-10.8) K/uL RBC (4.7-6.1) M/uL Hgb (14.0-18.0) g/dL Hct (42-52) % MCV (80-100) fL MCH (25-34) pg MCHC (32-36) g/dL RDW Std Deviation (36.4-46.3) fL RDW Coeff of Kel (11.5-14.5) % Plt Count (130-400) K/uL MPV (7.4-10.4) fL Immature Gran % (Auto) % Neut % (Auto) % Lymph % (Auto) % [place] % (Auto) % Eos % (Auto) % Baso % (Auto) % Neut # (Auto) (1.4-6.5) K/uL Lymph # (Auto) (1.2-3.4) K/uL [place] # (Auto) (0.11-0.59) K/uL Eos # (Auto) (0-0.5) K/uL Baso # (Auto) (0-0.2) K/uL Immature Gran # (Auto) (0.00-0.02) K/uL PT (9.0-12.0) Seconds INR (0.9-1.1) APTT (21.0-31.0) Seconds PTT Ratio Sodium 136 (136-145) mmol/L Potassium 4.3 (3.5-5.1) mmol/L Chloride 104 (98-107) mmol/L Carbon Dioxide 24 (21-32) mmol/L Anion Gap 8 (3-11) BUN 20 (6-23) mg/dl Creatinine 1.40 (0.6-1.4) mg/dl Est Cr Clr Drug Dosing 40.0 ml/min Est GFR ( Amer) 51.6 ml/min Est GFR (Non-Af Amer) 44.5 ml/min BUN/Creatinine Ratio 14.3 (10-20) Glucose 120 H (70-99(Fasting)) mg/dl Calcium 9.2 (8.5-10.1) mg/dl Total Bilirubin 0.5 (0.2-1.0) mg/dl AST 16 (13-39) U/L ALT 13 (7-52) U/L Alkaline Phosphatase 95 (34-104) U/L Total Protein 6.1 (6.0-8.3) gm/dl Albumin 4.0 (3.4-5.0) gm/dl Globulin 2.1 L (2.5-4.0) gm/dl Albumin/Globulin Ratio 1.9 (0.9-2) Urine Color Yellow Urine Appearance Clear (Clear) Urine pH 5.0 (4.5-7.5) Ur Specific [place] 1.011 (1.000-1.030) Urine Protein Negative (Negative) Urine Glucose (UA) Negative (Negative) Urine Ketones Negative (Negative) Urine Blood Negative (Negative) Urine Nitrite Negative (Negative) Urine Bilirubin Negative (Negative) Urine Urobilinogen Negative (Negative) Ur Leukocyte Esterase Negative (Negative) SARS-CoV-2, RNA, NAAT (NEGATIVE) Administered Medications Lactated Ringer's (Lr) 1,000 mls @ 125 mls/hr IV .Q8H DARIAN Stop: 10/26/21 17:14 Last Admin: 09/26/21 18:11 Dose: 125 mls/hr Documented by: [id number] Morphine Sulfate (Morphine Sulfate 4 Mg/Ml 1 Ml Carp\Vial) 4 mg IV Q1H PRN PRN Reason: Severe Pain (Rating 7,8,9,10) Stop: 10/10/21 14:51 Last Admin: 09/26/21 18:11 Dose: 4 mg Documented by: [id number] Discontinued Medications Acetaminophen (Acetaminophen 1000 Mg/100 Ml Iv) 1,000 mg IV NOW STA Stop: 09/26/21 14:45 Last Admin: 09/26/21 15:01 Dose: 1,000 mg Documented by: [id number] Morphine Sulfate (Morphine Sulfate 4 Mg/Ml 1 Ml Carp\Vial) 4 mg IV NOW STA Stop: 09/26/21 14:45 Last Admin: 09/26/21 15:01 Dose: 4 mg Documented by: [id number] Imaging Data Radiologist's Impression: Forearm X-Ray 09/26/21 14:44 XR hand LT min 3V routine, XR forearm LT 2V CLINICAL HISTORY: fall TECHNIQUE: 2 views of the left hand and 2 views of the left forearm were obtained. Comparison: None available at the time of this dictation. FINDINGS: There is a fracture of the left distal radial metaphysis which is mildly comminuted, impacted, and laterally displaced by approximately one shaft width. There is a bony fragment about the head of the ulna which may represent an ulnar styloid fracture. Soft tissue swelling is seen. IMPRESSION: Comminuted fracture of the distal radius and possibly of the ulnar styloid. There is surrounding soft tissue swelling. ACT 112: Negative or not required by law. Electronically signed by: Juvenal Kumar M.D. 09/26/2021 4:28 PM Hand X-Ray 09/26/21 14:44 XR hand LT min 3V routine, XR forearm LT 2V CLINICAL HISTORY: fall TECHNIQUE: 2 views of the left hand and 2 views of the left forearm were obtained. Comparison: None available at the time of this dictation. FINDINGS: There is a fracture of the left distal radial metaphysis which is mildly comminuted, impacted, and laterally displaced by approximately one shaft width. There is a bony fragment about the head of the ulna which may represent an ulnar styloid fracture. Soft tissue swelling is seen. IMPRESSION: Comminuted fracture of the distal radius and possibly of the ulnar styloid. There is surrounding soft tissue swelling. ACT 112: Negative or not required by law. Electronically signed by: Juvenal Kumar M.D. 09/26/2021 4:28 PM Femur X-Ray 09/26/21 14:52 XR pelvis 1-2V routine, XR femur LT 2V routine CLINICAL HISTORY: Left hip pain. Left leg pain. COMPARISON STUDY: None. FINDINGS: The bones are osteopenic. Mildly displaced left femoral neck fracture. The visualized pelvic bones, right hip, and distal left femur are intact. IMPRESSION: Mildly displaced left femoral neck fracture. ACT 112: Negative or not required by law. Electronically signed by: Singh iVllegas M.D. 09/26/2021 4:27 PM Pelvis X-Ray 09/26/21 14:52 XR pelvis 1-2V routine, XR femur LT 2V routine CLINICAL HISTORY: Left hip pain. Left leg pain. COMPARISON STUDY: None. FINDINGS: The bones are osteopenic. Mildly displaced left femoral neck fracture. The visualized pelvic bones, right hip, and distal left femur are intact. IMPRESSION: Mildly displaced left femoral neck fracture. ACT 112: Negative or not required by law. Electronically signed by: Singh Villegas M.D. 09/26/2021 4:[address] 09/26/21 14:54 CT head/brain wo con CLINICAL HISTORY: fall Technique: Contiguous axial CT images of the head were acquired from the base of the skull to the vertex without intravenous contrast administration. Images were viewed in brain, subdural and bone windows. Automated dose lowering techniques and/or adjustment according to patient size were utilized for this exam. Comparison: Comparison is made to CT head 11/17/2017 Findings: Areas of decreased attenuation are present in the periventricular and subcortical white matter bilaterally consistent with small vessel ischemic disease. Generalized cerebral atrophy with commensurate enlargement of the ventricles, sulci, and cisterns is also present. There is no acute intracranial hemorrhage or evidence of acute territorial infarction. No shift of the midline structures, mass effect, or extra-axial abnormalities are shown. Atheroscler otic calcifications are present in the intracranial segments of the internal carotid arteries. Imaged portions of the paranasal sinuses and mastoid air cells are clear. The orbits appear normal. There are no acute fractures of the calvaria or scalp swelling. Impression: No acute intracranial hemorrhage, no evidence of acute territorial infarction or other acute intracranial disease process. ACT 112: Negative or not required by law. Electronically signed by: Juvenal Kumar M.D. 09/26/2021 3:47 PM Forearm X-Ray 09/26/21 18:41 XR forearm LT 2V CLINICAL HISTORY: post reduction TECHNIQUE: 2 views of the left forearm were obtained. Comparison: None available at the time of this dictation. FINDINGS: There is interval reduction of the previously noted radial fracture. Exam is limited by overlying cast. The alignment is anatomic. Joint spaces are well- preserved. Soft tissue swelling is seen. IMPRESSION: Interval reduction of previously noted left radial fracture, the fragments are now in anatomic alignment. ACT 112: Negative or not required by law. Electronically signed by: Juvenal Kumar M.D. 09/26/2021 7:12 PM Discharge Plan Visit Data Chief Complaint: Fall Stated Complaint: FALL, WRIST & HIP FX ED Provider: Everardo Jimenez ED Midlevel Provider: Argelia Diamond Discharge Problem: Fall, Fracture of wrist, Closed hip fracture Forms Stand Alone Forms: [facility] [place] [employer] Prescriptions Prescriptions: No Action omeprazole 20 mg capsule,delayed release(DR/EC) 20 mg PO DAILY Qty: 90 RF: 3 levothyroxine [Euthyrox] 50 mcg tablet 50 mcg PO DAILY Qty: 90 RF: 3 acetaminophen [Tylenol Arthritis Pain] 650 mg tablet extended release 1,300 mg PO QAM PRN (Reason: pain) RF: 0 multivitamin [Multiple Vitamins] tablet 1 tab PO QAM RF: 0 cholecalciferol (vitamin D3) 2,000 unit capsule 2,000 units PO QAM RF: 0 ferrous sulfate 325 mg (65 mg iron) tablet 325 mg PO QAM Qty: 180 RF: 0 Referrals Referrals: Arron Austin MD [Physician] -
--- NOTE | 2021-09-26 15:05 | Emergency Department Note ---
ED Visit Note Patient seen by myself and discussed with Dr. Jimenez who evaluated him separately. Please see his note for assessment and plan. Resident Activity Tracking Resident Involvement: Resident Care Provided Care Provided: Adult ED
[2021-09-26 15:42] LABS: Basophils # (auto) 0.03 K/uL (0-0.2); Basophils % (auto) 0.3 %; Eosinophils # (auto) 0.28 K/uL (0-0.5); Eosinophils % (auto) 3.2 %; Hematocrit (blood only) 39.5 % (42-52); Hemoglobin 14.1 g/dL (14.0-18.0); Immature Granulocytes # (auto) 0.03 K/uL (0.00-0.02); Immature Granulocytes % (auto) 0.3 %; Lymphocytes # (auto) 1.13 K/uL (1.2-3.4); Lymphocytes % (auto) 12.8 %; Mean Corpuscular Hemoglobin 32.6 pg (25-34); Mean Corpuscular Hgb Conc 35.7 g/dL (32-36); Mean Corpuscular Volume 91.2 fL (80-100); Mean Platelet Volume 10.5 fL (7.4-10.4); Monocytes # (auto) 0.96 K/uL (0.11-0.59); Monocytes % (auto) 10.9 %; Neutrophils # (auto) 6.39 K/uL (1.4-6.5); Neutrophils % (auto) 72.5 %; Platelet Count 216 K/uL (130-400); RDW Coefficient of Variation 12.9 % (11.5-14.5); RDW Standard Deviation 43.1 fL (36.4-46.3); Red Blood Count 4.33 M/uL (4.7-6.1); White Blood Count 8.82 K/uL (4.8-10.8)
--- NOTE | 2021-09-26 15:49 | CT Scan Report ---
CT head/brain wo con CLINICAL HISTORY: fall Technique: Contiguous axial CT images of the head were acquired from the base of the skull to the uri prashant without intravenous contrast administration. Images were viewed in brain, subdural and bone [facility]. Automated dose lowering techniques and/or adjustment according to patient size were utilized for this exam. Comparison: Comparison is made to CT head 11/17/2017 Findings: Areas of decreased attenuation are present in the periventricular and subcortical white matter bilate rally consistent with small vessel ischemic disease. Generalized cerebral atrophy with commensurate e nlargement of the ventricles, sulci, and cisterns is also present. There is no acute intracranial hem orrhage or evidence of acute territorial infarction. No shift of the midline structures, mass effect, or extra-axial abnormalities are shown. Atherosclerotic calcifications are present in the intracran ial segments of the internal carotid arteries. Imaged portions of the paranasal sinuses and mastoid air cells are clear. The orbits appear normal. There are no acute fractures of the calvaria or scalp swelling. Impression: No acute intracranial hemorrhage, no evidence of acute territorial infarction or other acute intracra nial disease process. ACT 112: Negative or not required by law. Electronically signed by: Juvenal Kumar M.D. 09/26/2021 3:47 PM
[2021-09-26 15:54] LABS: Partial Thromboplastin Time 26.7 Seconds (21.0-31.0); Prothrombin Time 10.7 Seconds (9.0-12.0)
[2021-09-26 16:06] LABS: Albumin Globulin Ratio 1.9 (0.9-2); BUN Creatinine Ratio 14.3 (10-20); Bilirubin,Total 0.5 mg/dl (0.2-1.0); Calcium 9.2 mg/dl (8.5-10.1); Est GFR (African American) 51.6 ml/min; Est GFR (Non-African American) 44.5 ml/min; Globulin 2.1 gm/dl (2.5-4.0); Potassium 4.3 mmol/L (3.5-5.1); Total Protein 6.1 gm/dl (6.0-8.3)
[2021-09-26 16:15] LABS: Appearance Urine Clear (Clear); Bilirubin Urine Negative (Negative); Blood Urine Negative (Negative); Color Urine Yellow; Glucose Urine UA Negative (Negative); Ketones Urine Negative (Negative); Leukocyte Esterase Urine Negative (Negative); Nitrite Urine Negative (Negative); Protein Urine Negative (Negative); Specific Gravity Urine 1.011 (1.000-1.030); Urobilinogen Urine Negative (Negative)
--- NOTE | 2021-09-26 16:28 | XRay Report ---
XR pelvis 1-2V routine, XR femur LT 2V routine CLINICAL HISTORY: Left hip pain. Left leg pain. COMPARISON STUDY: None. FINDINGS: The bones are osteopenic. Mildly displaced left femoral neck fracture. The visualized pelvi c bones, right hip, and distal left femur are intact. IMPRESSION: Mildly displaced left femoral neck fracture. ACT 112: Negative or not required by law. Electronically signed by: Singh Villegas M.D. 09/26/2021 4:27 PM
--- NOTE | 2021-09-26 16:29 | XRay Report ---
XR hand LT min 3V routine, XR forearm LT 2V CLINICAL HISTORY: fall TECHNIQUE: 2 views of the left hand and 2 views of the left forearm were obtained. Comparison: None available at the time of this dictation. FINDINGS: There is a fracture of the left distal radial metaphysis which is mildly comminuted, impacted, and la terally displaced by approximately one shaft width. There is a bony fragment about the head of the ul na which may represent an ulnar styloid fracture. Soft tissue swelling is seen. IMPRESSION: Comminuted fracture of the distal radius and possibly of the ulnar styloid. There is surrounding soft tissue swelling. ACT 112: Negative or not required by law. Electronically signed by: Juvenal Kumar M.D. 09/26/2021 4:28 PM
--- NOTE | 2021-09-26 17:00 | History & Physical Report ---
Date of Service September 26, 2021 Assessment & Plan (1) Displaced fracture of left femoral neck: Plan: Acetaminophen and morphine for pain relief. [place] Real catheter NPO after midnight, LR @ 125 ml/hr Revised cardiac risk index: 0, 3.9% 30-day risk of , [place] or cardiac arrest He is medically optimized for surgery at this time Consult orthopedics (2) Closed fracture of left distal radius: Plan: Reduced in the ER by orthopedics, appreciate ongoing management of this. (3) Fall: Plan: Many years of ambulatory dysfunction. No chest pain, shortness of breath or dizziness prior to falling. PT OT postoperatively (4) Osteoporosis, unspecified: Plan: History of this on electronic health record however the patient has no reported DEXA scan and recent notes are on imaging. Vitamin D with a.m. labs (5) Hypothyroidism: Plan: TSH with a.m. labs as last TSH in 2019 Continue levothyroxine 50 mcg p.o. daily (6) AAA (abdominal aortic aneurysm): Plan: Noted on electronic health record is under surveillance however no recent imaging to confirm this. Noted is less than 4 cm on electronic health record. Plan: VTE prophylaxis -deferred to orthopedics postoperatively Diet -regular, n.p.o. after midnight Disposition -admit to [facility] Admission and Anticipated Discharge Date Admission Date: September 26, 2021 History of Present Illness Chief Complaint: Left hip pain, left wrist pain Primary Care Provider: Nenita Casillas MD Freddy Pemberton is an 86 year old male who presents to the ER after a fall outside where he lost his balance and slipped on ice. He has been unable to bear weight on his left leg since. He reports ambulatory dysfunction for many years for which he undergoes physical therapy as his insurance allows. He is also complaining of left wrist pain with difficulty moving his fingers although he thinks this is due to pain rather than weakness. He denies any loss of sensation in his toes on his left foot. He denies hitting his head. No chest pain, shortness of breath or dizziness prior to falling. He reports walking daily with good exercise tolerance. No history of myocardial infarction or strokes. No chest pain or shortness of breath while walking. In the ER on imaging he was noted to have a mildly displaced left femoral neck fracture and comminuted fracture of the distal radius. Orthopedics have been contacted. He was referred to medicine for admission ongoing management. Allergies Allergy/AdvReac Type Severity Reaction Status Date / Time No Known Allergies Allergy Verified 09/26/21 15:00 Home Medications Medication Instructions Recorded Confirmed Type cholecalciferol (vitamin D3) 50 2,000 units PO QAM cap 02/28/19 09/26/21 History mcg (2,000 unit) capsule multivitamin (Multiple Vitamins) 1 tab PO QAM 02/28/19 09/26/21 History ferrous sulfate 325 mg (65 mg 325 mg PO QAM #180 tab 03/14/20 09/26/21 History iron) tablet acetaminophen 650 mg 1,300 mg PO QAM PRN 05/14/21 09/26/21 History tablet,extended release (Tylenol Arthritis Pain) levothyroxine 50 mcg tablet 50 mcg PO DAILY #90 tab 08/13/21 09/26/21 Rx (Euthyrox) omeprazole 20 mg capsule,delayed 20 mg PO DAILY #90 cap 08/13/21 09/26/21 Rx release Past Med/Surg History Medical History (Updated 09/26/21 @ 20:49 by Arron Bae MD) AAA (abdominal aortic aneurysm) <4 cm, small, under surveillance Anemia BPH (benign prostatic hyperplasia) Choledocholithiasis CKD (chronic kidney disease) stage III (ARETHA 12/2019- now back to baseline) GERD (gastroesophageal reflux disease) Hiatal hernia History of colon cancer 12 years ago s/p surgery/oral pill HTN (hypertension) per records Hx SBO 01/2020 Hypothyroidism Osteoporosis, unspecified Pancreatitis due to common bile duct stone hx Rhabdomyolysis remote hx after fall SBO (small bowel obstruction) Seborrheic keratoses Urinary frequency Urinary incontinence Surgical History History of back surgery AGE 13> LOWER BACK CYST REMOVAL FROM SPINAL CANAL > BENIGN History of colon surgery 12 YRS AGO> CANCEROUS TUMOR REMOVED History of colonoscopy History of esophagogastroduodenoscopy (EGD) History of inguinal hernia repair, bilateral History of tooth extraction Hx laparoscopic cholecystectomy Status post correction of deviated nasal septum Family History Father No problems noted. Mother Breast cancer Family/Other No problems noted. Sister Breast cancer Uncle Prostate cancer Denies family history of Ovarian cancer Myocardial infarction Colorectal cancer Social History (Updated 05/14/21 @ 13:13 by Enid Pantoja) Smoking Status: Former smoker Age Started Using Tobacco: 18; Age Quit Using Tobacco: 42; Smoking End Date: 40 YEARS AGO; Second Hand Exposure: Yes; Hx Alcohol Use: Yes Alcohol type: beer Hx Substance Use: No Preferred Language: Faroese Communication Ability: Effective Visual Impairment: No Limitations Hearing Ability: Hard of Hearing Stave Planer Tender Required: No Beliefs That Will Affect Care: None marital status: / Current Living Situation: Alone current occupational status: retired Feels Safe at Home: Yes Safety Concerns: Feels Safe At This Time Dental Care, Regularly: No Physical Activity Frequency: Daily Seatbelt Use: always Sunscreen Use: Yes Assistive Devices: Brace/Splint/Immobilizer, Denture - Upper, Denture - Lower and Glasses Review of Systems Review of Systems: All systems reviewed & are unremarkable except as noted in HPI & below Physical Exam Constitutional: WD/WN, vitals as above Eyes: PERRL, conjunctivae normal, anicteric sclerae ENMT: Mouth: + dry oral mucous membranes Neck: trachea midline, no thyromegaly Respiratory: normal respiratory effort, lungs clear to auscultation Cardiovascular: RRR, no murmur, no edema Gastrointestinal (Abdomen): normal bowel sounds, soft, nontender, no hepatosplenomegaly Musculoskeletal: Shortened and externally rotated left leg. Neurovascularly intact distally. Plantar angulated left wrist, no sensory deficit, difficulty extending fingers although he relates this is to pain rather than weakness. Skin: no rashes, warm and dry Neurologic: moves all extremities and awake; not confused Psychiatric: A+Ox3, euthymic affect Results & Data Results & Data ([facility]) Vital Signs (Past 12 Hours) Vital Signs Temp Pulse Pulse Resp BP BP Pulse Ox 09/26/21 15:50 72 18 133/68 97 09/26/21 14:31 36.9 C 87 87 18 174/87 H 174/87 H 97 Laboratory Results Abnormal lab results 09/26/21 09/26/21 Range/Units 15:28 15:28 RBC 4.33 L (4.7-6.1) M/uL Hct 39.5 L (42-52) % MPV 10.5 H (7.4-10.4) fL Lymph # (Auto) 1.13 L (1.2-3.4) K/uL [place] # (Auto) 0.96 H (0.11-0.59) K/uL Immature Gran # (Auto) 0.03 H (0.00-0.02) K/uL Glucose 120 H (70-99(Fasting)) mg/dl Globulin 2.1 L (2.5-4.0) gm/dl Diagnostic Findings CT head/brain wo con CLINICAL HISTORY: fall Technique: Contiguous axial CT images of the head were acquired from the base of the skull to the vertex without intravenous contrast administration. Images were viewed in brain, subdural and bone windows. Automated dose lowering techniques and/or adjustment according to patient size were utilized for this exam. Comparison: Comparison is made to CT head 11/17/2017 Findings: Areas of decreased attenuation are present in the periventricular and subcortical white matter bilaterally consistent with small vessel ischemic disease. Generalized cerebral atrophy with commensurate enlargement of the ventricles, sulci, and cisterns is also present. There is no acute intracranial hemorrhage or evidence of acute territorial infarction. No shift of the midline structures, mass effect, or extra-axial abnormalities are shown. Atherosclerotic calcifications are present in the intracranial segments of the internal carotid arteries. Imaged portions of the paranasal sinuses and mastoid air cells are clear. The orbits appear normal. There are no acute fractures of the calvaria or scalp swelling. Impression: No acute intracranial hemorrhage, no evidence of acute territorial infarction or other acute intracranial disease process. XR pelvis 1-2V routine, XR femur LT 2V routine CLINICAL HISTORY: Left hip pain. Left leg pain. COMPARISON STUDY: None. FINDINGS: The bones are osteopenic. Mildly displaced left femoral neck fracture. The visualized pelvic bones, right hip, and distal left femur are intact. IMPRESSION: Mildly displaced left femoral neck fracture. XR hand LT min 3V routine, XR forearm LT 2V CLINICAL HISTORY: fall TECHNIQUE: 2 views of the left hand and 2 views of the left forearm were obtained. Comparison: None available at the time of this dictation. FINDINGS: There is a fracture of the left distal radial metaphysis which is mildly comminuted, impacted, and laterally displaced by approximately one shaft width. There is a bony fragment about the head of the ulna which may represent an ulnar styloid fracture. Soft tissue swelling is seen. IMPRESSION: Comminuted fracture of the distal radius and possibly of the ulnar styloid. There is surrounding soft tissue swelling. Medications Administered ER medications given: Acetaminophen 1000 mg IV Morphine 4 mg IV Code Status & VTE Plan Code Status Full VTE Prophylaxis Plan VTE Prophylaxis will be ordered: Yes PG Care Time/CCT Total # of Minutes Spent Total Time Spent with Patient: Total time spent is greater than 50% in coordination of care (as documented) at patient's floor/unit and/or counseling patient: Coding Level of Care Code 86531 Initial Inpt Care Lvl 2 Diagnoses Displaced fracture of left femoral neck S72.002A Closed fracture of left distal radius S52.532A Encounter type: initial encounter Fracture morphology: Colles' Fall W19.XXXA Osteoporosis, unspecified Hypothyroidism E03.9 Hypothyroidism type: unspecified AAA (abdominal aortic aneurysm) I71.4 Presence of rupture: without rupture (1) AAA (abdominal aortic aneurysm) Presence of rupture: without rupture Qualified Code(s): I71.4 - Abdominal aortic aneurysm, without rupture (2) Hypothyroidism Hypothyroidism type: unspecified Qualified Code(s): E03.9 - Hypothyroidism, unspecified (3) Closed fracture of left distal radius Encounter type: initial encounter Fracture morphology: Colles' Qualified Code(s): S52.532A - Colles' fracture of left radius, initial encounter for closed fracture
[2021-09-26] MEDS: LACTATED RINGER'S 1,000 ML IV SCH (18:11)
--- NOTE | 2021-09-26 19:14 | XRay Report ---
XR forearm LT 2V CLINICAL HISTORY: post reduction TECHNIQUE: 2 views of the left forearm were obtained. Comparison: None available at the time of this dictation. FINDINGS: There is interval reduction of the previously noted radial fracture. Exam is limited by overlying nelly t. The alignment is anatomic. Joint spaces are well-preserved. Soft tissue swelling is seen. IMPRESSION: Interval reduction of previously noted left radial fracture, the fragments are now in anatomic alignm ent. ACT 112: Negative or not required by law. Electronically signed by: Juvenal Kumar M.D. 09/26/2021 7:12 PM
--- NOTE | 2021-09-26 19:24 | Orthopedic Consultation ---
Date of Consultation September 26, 2021 Assessment & Plan (1) Closed fracture of left distal radius: He has a severely displaced and significantly comminuted intra-articular fracture of the left distal radius. He does endorse some subjective mildly decreased sensation in his median nerve distribution. I therefore recommended urgent reduction and splinting of the distal radius fracture to take pressure off the median nerve. Fingers were placed in finger traps, and 10 pounds of longitudinal traction was applied at the elbow. Reduction maneuver was then performed to correct the radial and dorsal displacement of the distal radius fracture fragments. A well-padded sugar tong splint was then applied with a three-point mold. Post reduction x-rays showed marked improvement in fracture alignment, although not anatomic. Patient also reported improved sensation in his median nerve distribution after reduction. Advised patient that this left distal radius fracture will require open reduction and internal fixation to achieve optimal function in his wrist in the future and prevent recurrent displacement. Risks, benefits, and alternatives of surgery were explained in detail. The surgical procedure, as well as postoperative recovery and rehabilitation, was also explained in detail. Risks include bleeding; infection; damage to surrounding structures such as nerves, blood vessels, and tendons that run in the area; persistent pain or stiffness; nonunion; malunion; hardware failure; post-traumatic arthritis; painful prominent hardware requiring removal; or need for further surgery. The patient understands all of this and wishes to proceed with surgery. (2) Displaced fracture of left femoral neck: He has a completely displaced left femoral neck fracture. This will require a hip hemiarthroplasty in order to restore the ability to ambulate. R isks, benefits, and alternatives of surgery were explained in detail. The surgical procedure, as well as postoperative recovery and rehabilitation, was also explained in detail. Risks include bleeding; infection; damage to surrounding structures such as nerves, blood vessels, and tendons that run in the area; persistent pain or stiffness; hardware failure; dislocation; leg length discrepancy; blood clots; or need for further surgery. The patient understands all of this and wishes to proceed with surgery. The patient will need admitted to the medical service and cleared for surgery. We will plan for both procedures in 1 surgical setting barring any complications. We will plan for surgery in the next day or 2. History of Present Illness Reason for Consultation: Left hip and wrist injuries History of Present Illness Mr. Pemberton is an 86-year old [id number] male who was out hiking on his own when he lost his balance and stumbled. He tried to catch his fall, but he stepped on a patch of ice and fell onto his left side. He had immediate pain and deformity in his left wrist and left hip, and inability to bear weight on his left leg. He was able to call for help, and was brought to the emergency room by EMS. He denies any other significant extremity injury other than the left wrist and left hip. He does report that he has balance problems and frequent falls. He thinks he may have been tested for osteoporosis in the past, but is unsure of this. Allergies Allergy/AdvReac Type Severity Reaction Status Date / Time No Known Allergies Allergy Verified 09/26/21 15:00 Home Medications Medication Instructions Recorded Confirmed Type cholecalciferol (vitamin D3) 50 2,000 units PO QAM cap 02/28/19 09/26/21 History mcg (2,000 unit) capsule multivitamin (Multiple Vitamins) 1 tab PO QAM 02/28/19 09/26/21 History ferrous sulfate 325 mg (65 mg 325 mg PO QAM #180 tab 03/14/20 09/26/21 History iron) tablet acetaminophen 650 mg 1,300 mg PO QAM PRN 05/14/21 09/26/21 History tablet,extended release (Tylenol Arthritis Pain) levothyroxine 50 mcg tablet 50 mcg PO DAILY #90 tab 08/13/21 09/26/21 Rx (Euthyrox) omeprazole 20 mg capsule,delayed 20 mg PO DAILY #90 cap 08/13/21 09/26/21 Rx release Patient History Medical History (Updated 09/26/21 @ 19:19 by Miko Medina M.D.) AAA (abdominal aortic aneurysm) <4 cm, small, under surveillance Anemia BPH (benign prostatic hyperplasia) Choledocholithiasis CKD (chronic kidney disease) stage III (ARETHA 12/2019- now back to baseline) GERD (gastroesophageal reflux disease) Hiatal hernia History of colon cancer 12 years ago s/p surgery/oral pill HTN (hypertension) per records Hx SBO 01/2020 Hypothyroidism Osteoporosis, unspecified Pancreatitis due to common bile duct stone hx Rhabdomyolysis remote hx after fall Seborrheic keratoses Urinary frequency Urinary incontinence Surgical History History of back surgery History of colon surgery History of colonoscopy History of esophagogastroduodenoscopy (EGD) History of inguinal hernia repair, bilateral History of tooth extraction Hx laparoscopic cholecystectomy Status post correction of deviated nasal septum Family History Father No problems noted. Mother Breast cancer Family/Other No problems noted. Sister Breast cancer Uncle Prostate cancer Denies family history of Ovarian cancer Myocardial infarction Colorectal cancer Social History (Updated 05/14/21 @ 13:13 by Enid Pantoja) Smoking Status: Former smoker Age Started Using Tobacco: 18; Age Quit Using Tobacco: 42; Second Hand Exposure: Yes; Hx Alcohol Use: Yes Alcohol type: beer Hx Substance Use: No Preferred Language: Argentine Communication Ability: Effective Visual Impairment: No Limitations Hearing Ability: Hard of Hearing Rectifying Attendant Required: No Beliefs That Will Affect Care: None marital status: / Current Living Situation: Alone current occupational status: retired Feels Safe at Home: Yes Dental Care, Regularly: No Physical Activity Frequency: Daily Seatbelt Use: always Sunscreen Use: Yes Assistive Devices: Denture - Upper, Denture - Lower and Glasses Physical Exam Physical Exam: Examination of the left wrist reveals obvious gross deformity across the wrist joint with radial and dorsal deviation of the hand. No open wounds. Compartments are soft and compressible. Motor and sensory function is grossly intact in the median, ulnar, and radial nerve distributions, but he does endorse mildly decreased sensation in the median nerve distribution. Examination of the left hip shows no open wounds. There is shortening and external rotation of the leg. There is mild swelling and tenderness to palpation of the thigh and hip area. Compartments are soft and compressible. Intact ankle dorsiflexion and plantarflexion. Results & Data ([facility]) Vital Signs (Past 12 Hours) Vital Signs Temp Pulse Pulse Resp BP BP Pulse Ox 09/26/21 18:30 87 18 141/63 H 98 09/26/21 17:00 68 18 112/76 98 09/26/21 15:50 72 18 133/68 97 09/26/21 14:31 36.9 C 87 87 18 174/87 H 174/87 H 97 Diagnostic Findings X-rays of the left wrist were reviewed. They show a severely displaced and significantly comminuted intra-articular distal radius fracture. X-rays of the left hip were reviewed. They show a completely displaced left femo ral neck fracture. No obvious intertrochanteric extension. (1) Closed fracture of left distal radius Encounter type: initial encounter Fracture morphology: Dirk' Qualified Code(s): S52.532A - Colles' fracture of left radius, initial encounter for closed fracture
[2021-09-26] MEDS ORDERED: MAGNESIUM HYDROXIDE SUSP 30 ML UDC PO PRN (21:27)
[2021-09-26] MEDS ORDERED: NON-FORMULARY MEDICATION (Acetaminophen [Tylenol Arthritis Pain] 650 mg tablet extended re PO PRN (21:27)
[2021-09-26] MEDS ORDERED: NALOXONE HCL 0.4 MG/1 ML VIAL/CARP IV PRN (21:27)
[2021-09-26] MEDS ORDERED: bisacodyL 10 MG SUPP PR PRN (21:27)
[2021-09-26] MEDS ORDERED: ONDANSETRON INJ 2 MG/ML 2 ML VIAL IV PRN (21:27)
[2021-09-26] MEDS: DOCUSATE SODIUM/SENNA 50/8.6MG TAB PO SCH (23:16)
[2021-09-26] MEDS: MoRPHine SULFATE 2 MG/ML CARP IV PRN (23:17)
[2021-09-26] MEDS: ACETAMINOPHEN 500 MG TAB PO SCH (23:17)
[2021-09-27] MEDS: LACTATED RINGER'S 1,000 ML IV SCH ×2 (03:08→10:46)
[2021-09-27] MEDS: LEVOTHYROXINE SODIUM 50 MCG TABLET PO SCH (05:41)
[2021-09-27] MEDS: MoRPHine SULFATE 2 MG/ML CARP IV PRN ×2 (07:17→14:06)
[2021-09-27] MEDS: CHOLECALCIFEROL 1,000 UNITS 25 MCG TAB PO SCH (07:18)
[2021-09-27] MEDS: PANTOprazole 40 MG TAB PO SCH (07:18)
[2021-09-27] MEDS: FERROUS SULFATE 325 MG TAB PO SCH (07:19)
[2021-09-27] MEDS: MULTIVITAMIN TAB PO SCH (07:19)
[2021-09-27] MEDS: ACETAMINOPHEN 500 MG TAB PO SCH ×3 (07:19→20:12)
--- NOTE | 2021-09-27 07:39 | XRay Report ---
XR chest 1V portable CLINICAL HISTORY: Preoperative evaluation. COMPARISON STUDY: Chest radiograph February 27, 2020. Chest CT November 2012. FINDINGS: Lung volumes are normal. Lungs are clear. Right midlung density is unchanged. There is no p neumothorax or pleural effusion. Cardiac size is stable. Mediastinal contours are normal. There is no evidence for pulmonary edema. Calcified right lower lobe granuloma is incidentally noted. IMPRESSION: No acute cardiopulmonary findings. ACT 112: Negative or not required by law. Electronically signed by: Bennie Hess M.D. 09/27/2021 7:38 AM
[2021-09-27 07:47] LABS: Mean Corpuscular Hgb Conc 34.3 g/dL (32-36); Platelet Count 214 K/uL (130-400)
[2021-09-27 08:13] LABS: BUN Creatinine Ratio 17.1 (10-20); Calcium 8.1 mg/dl (8.5-10.1); Creatinine Clr Calc Pharmacy 46.9 ml/min; Est GFR (Non-African American) 49.2 ml/min; Potassium 3.8 mmol/L (3.5-5.1)
[2021-09-27 08:15] LABS: Basophils # (auto) 0.02 K/uL (0-0.2); Basophils % (auto) 0.2 %; Eosinophils # (auto) 0.38 K/uL (0-0.5); Eosinophils % (auto) 4.3 %; Hematocrit (blood only) 38.5 % (42-52); Hemoglobin 13.2 g/dL (14.0-18.0); Immature Granulocytes # (auto) 0.03 K/uL (0.00-0.02); Immature Granulocytes % (auto) 0.3 %; Lymphocytes # (auto) 1.25 K/uL (1.2-3.4); Lymphocytes % (auto) 14.2 %; Mean Corpuscular Hemoglobin 31.4 pg (25-34); Mean Corpuscular Volume 91.7 fL (80-100); Monocytes % (auto) 14.8 %; Neutrophils % (auto) 66.2 %; RDW Coefficient of Variation 13.1 % (11.5-14.5); RDW Standard Deviation 43.7 fL (36.4-46.3); White Blood Count 8.78 K/uL (4.8-10.8)
--- NOTE | 2021-09-27 10:31 | Orthopedic Progress Note ---
Date of Service September 27, 2021 Assessment & Plan (1) Displaced fracture of left femoral neck: Plan: Plan for Left Bipolar Hemiarthroplasty in AM NPO after midnight. (2) Closed fracture of left distal radius: Plan: Plan for ORIF left distal radius in AM Elevation LUE Ice to left wrist. Admission and Anticipated Discharge Date Admission Date: September 26, 2021 Subjective HD 1 Pt sitting up eating breakfast. No complaints this AM. Comfortable. Pain controlled at rest. Physical Exam Physical Exam: LUE splint C/D/I. Moving fingers well. Sensation intact. Cap refill < 2 seconds. LLE shortened, externally rotated. Moving toes/ankle well. Sensation intact. Calves soft, NT. Results & Data ([facility]) Vital Signs (Past 12 Hours) Vital Signs Temp Pulse Pulse Resp BP BP Pulse Ox 09/27/21 07:43 37.3 C 83 18 126/68 100 09/26/21 23:00 36.9 C 75 16 123/68 93 09/26/21 22:27 74 18 121/63 18 L Laboratory Results Laboratory Results WBC 8.78 K/uL (4.8-10.8) 09/27/21 06:47 RBC 4.20 M/uL (4.7-6.1) L 09/27/21 06:47 Hgb 13.2 g/dL (14.0-18.0) L 09/27/21 06:47 Hct 38.5 % (42-52) L 09/27/21 06:47 MCV 91.7 fL (80-100) 09/27/21 06:47 MCH 31.4 pg (25-34) 09/27/21 06:47 MCHC 34.3 g/dL (32-36) 09/27/21 06:47 RDW Std Deviation 43.7 fL (36.4-46.3) 09/27/21 06:47 RDW Coeff of Kel 13.1 % (11.5-14.5) 09/27/21 06:47 Plt Count 214 K/uL (130-400) 09/27/21 06:47 MPV 11.0 fL (7.4-10.4) H 09/27/21 06:47 Immature Gran % (Auto) 0.3 % 09/27/21 06:47 Neut % (Auto) 66.2 % 09/27/21 06:47 Lymph % (Auto) 14.2 % 09/27/21 06:47 [place] % (Auto) 14.8 % 09/27/21 06:47 Eos % (Auto) 4.3 % 09/27/21 06:47 Baso % (Auto) 0.2 % 09/27/21 06:47 Neut # (Auto) 5.80 K/uL (1.4-6.5) 09/27/21 06:47 Lymph # (Auto) 1.25 K/uL (1.2-3.4) 09/27/21 06:47 [place] # (Auto) 1.30 K/uL (0.11-0.59) H 09/27/21 06:47 Eos # (Auto) 0.38 K/uL (0-0.5) 09/27/21 06:47 Baso # (Auto) 0.02 K/uL (0-0.2) 09/27/21 06:47 Immature Gran # (Auto) 0.03 K/uL (0.00-0.02) H 09/27/21 06:47 PT 10.7 Seconds (9.0-12.0) 09/26/21 15:28 INR 1.0 (0.9-1.1) 09/26/21 15:28 APTT 26.7 Seconds (21.0-31.0) 09/26/21 15:28 PTT Ratio 1.0 09/26/21 15:28 Sodium 135 mmol/L (136-145) L 09/27/21 06:47 Potassium 3.8 mmol/L (3.5-5.1) 09/27/21 06:47 Chloride 103 mmol/L (98-107) 09/27/21 06:47 Carbon Dioxide 25 mmol/L (21-32) 09/27/21 06:47 Anion Gap 7 (3-11) 09/27/21 06:47 BUN 22 mg/dl (6-23) 09/27/21 06:47 Creatinine 1.29 mg/dl (0.6-1.4) 09/27/21 06:47 Est Cr Clr Drug Dosing 46.9 ml/min 09/27/21 06:47 Est GFR ( Amer) 57.0 ml/min 09/27/21 06:47 Est GFR (Non-Af Amer) 49.2 ml/min 09/27/21 06:47 BUN/Creatinine Ratio 17.1 (10-20) 09/27/21 06:47 Glucose 106 mg/dl (70-99(Fasting)) H 09/27/21 06:47 Calcium 8.1 mg/dl (8.5-10.1) L 09/27/21 06:47 Total Bilirubin 0.5 mg/dl (0.2-1.0) 09/26/21 15:28 AST 16 U/L (13-39) 09/26/21 15:28 ALT 13 U/L (7-52) 09/26/21 15:28 Alkaline Phosphatase 95 U/L (34-104) 09/26/21 15:28 Total Creatine Kinase 94 U/L (30-223) 09/26/21 15:28 Total Protein 6.1 gm/dl (6.0-8.3) 09/26/21 15:28 Albumin 4.0 gm/dl (3.4-5.0) 09/26/21 15:28 Globulin 2.1 gm/dl (2.5-4.0) L 09/26/21 15:28 Albumin/Globulin Ratio 1.9 (0.9-2) 09/26/21 15:28 25-OH Vitamin D Total 42.6 ng/ml (30-100) 09/27/21 06:47 Urine Color Yellow 09/26/21 15:51 Urine Appearance Clear (Clear) 09/26/21 15:51 Urine pH 5.0 (4.5-7.5) 09/26/21 15:51 Ur Specific [place] 1.011 (1.000-1.030) 09/26/21 15:51 Urine Protein Negative (Negative) 09/26/21 15:51 Urine Glucose (UA) Negative (Negative) 09/26/21 15:51 Urine Ketones Negative (Negative) 09/26/21 15:51 Urine Blood Negative (Negative) 09/26/21 15:51 Urine Nitrite Negative (Negative) 09/26/21 15:51 Urine Bilirubin Negative (Negative) 09/26/21 15:51 Urine Urobilinogen Negative (Negative) 09/26/21 15:51 Ur Leukocyte Esterase Negative (Negative) 09/26/21 15:51 SARS-CoV-2, RNA, NAAT NEGATIVE (NEGATIVE) 09/26/21 15:11 Blood Type O Positive 09/26/21 15:20 Antibody Screen NEGATIVE 09/26/21 15:20 Impressions Hand X-Ray 09/26/21 14:44 XR hand LT min 3V routine, XR forearm LT 2V CLINICAL HISTORY: fall TECHNIQUE: 2 views of the left hand and 2 views of the left forearm were obtained. Comparison: None available at the time of this dictation. FINDINGS: There is a fracture of the left distal radial metaphysis which is mildly comminuted, impacted, and laterally displaced by approximately one shaft width. There is a bony fragment about the head of the ulna which may represent an ulnar styloid fracture. Soft tissue swelling is seen. IMPRESSION: Comminuted fracture of the distal radius and possibly of the ulnar styloid. There is surrounding soft tissue swelling. ACT 112: Negative or not required by law. Electronically signed by: Juvenal Kumar M.D. 09/26/2021 4:28 PM Femur X-Ray 09/26/21 14:52 XR pelvis 1-2V routine, XR femur LT 2V routine CLINICAL HISTORY: Left hip pain. Left leg pain. COMPARISON STUDY: None. FINDINGS: The bones are osteopenic. Mildly displaced left femoral neck fracture. The visualized pelvic bones, right hip, and distal left femur are intact. IMPRESSION: Mildly displaced left femoral neck fracture. ACT 112: Negative or not required by law. Electronically signed by: Singh Villegas M.D. 09/26/2021 4:27 PM Pelvis X-Ray 09/26/21 14:52 XR pelvis 1-2V routine, XR femur LT 2V routine CLINICAL HISTORY: Left hip pain. Left leg pain. COMPARISON STUDY: None. FINDINGS: The bones are osteopenic. Mildly displaced left femoral neck fracture. The visualized pelvic bones, right hip, and distal left femur are intact. IMPRESSION: Mildly displaced left femoral neck fracture. ACT 112: Negative or not required by law. Electronically signed by: Singh Villegas M.D. 09/26/2021 4:27 PM Forearm X-Ray 09/26/21 18:41 XR forearm LT 2V CLINICAL HISTORY: post reduction TECHNIQUE: 2 views of the left forearm were obtained. Comparison: None available at the time of this dictation. FINDINGS: There is interval reduction of the previously noted radial fracture. Exam is limited by overlying cast. The alignment is anatomic. Joint spaces are well- preserved. Soft tissue swelling is seen. IMPRESSION: Interval reduction of previously noted left radial fracture, the fragments are now in anatomic alignment. ACT 112: Negative or not required by law. Electronically signed by: Juvenal Kumar M.D. 09/26/2021 7:12 PM Chest X-Ray 09/27/21 07:17 XR chest 1V portable CLINICAL HISTORY: Preoperative evaluation. COMPARISON STUDY: Chest radiograph February 27, 2020. Chest CT November 2012. FINDINGS: Lung volumes are normal. Lungs are clear. Right midlung density is unchanged. There is no pneumothorax or pleural effusion. Cardiac size is stable. Mediastinal contours are normal. There is no evidence for pulmonary edema. Calcified right lower lobe granuloma is incidentally noted. IMPRESSION: No acute cardiopulmonary findings. ACT 112: Negative or not required by law. Electronically signed by: Bennie Hess M.D. 09/27/2021 7:38 AM (1) Closed fracture of left distal radius Encounter type: initial encounter Fracture morphology: Colles' Qualified Code(s): S52.532A - Colles' fracture of left radius, initial encounter for closed fracture
[2021-09-27] MEDS: SODIUM CHLORIDE 0.9% 1000ML 1,000 ML IV SCH ×2 (10:38→20:11)
--- NOTE | 2021-09-27 17:56 | Hospitalist Progress Note ---
Date of Service September 27, 2021 Assessment & Plan (1) Displaced fracture of left femoral neck: Plan: Acetaminophen and morphine for pain relief. [place] catheter remains in place. NPO after midnight, NSS @ 80ml/hr Revised cardiac risk index: 0, 3.9% 30-day risk of , ID or cardiac arrest He is medically optimized for surgery at this time. CXR and EKG unremarkable. Appreciate orthopedic consult, planning on left bipolar hemiarthroplasty tomorrow (2) Closed fracture of left distal radius: Plan: Reduced in the ER by orthopedics, appreciate ongoing management of this - planning on ORIF tomorrow. Elevate LUE to reduce swelling. (3) Fall: Plan: Many years of ambulatory dysfunction. No chest pain, shortness of breath or dizziness prior to falling. B12 level with AM labs PT OT postoperatively (4) Osteoporosis, unspecified: Plan: History of this on electronic health record however the patient has no reported DEXA scan and recent notes are on imaging. Vitamin D level 42.6. Consider DEXA scan as outpatient. (5) Hypothyroidism: Plan: TSH with a.m. labs as last TSH in 2019 Continue levothyroxine 50 mcg p.o. daily (6) AAA (abdominal aortic aneurysm): Plan: Noted on electronic health record is under surveillance however no recent imaging to confirm this. Noted is less than 4 cm on electronic health record. Plan: VTE prophylaxis -deferred to orthopedics postoperatively Diet -regular, n.p.o. after midnight Disposition -admit to [facility] Admission and Anticipated Discharge Date Admission Date: September 26, 2021 Subjective No acute questions or concerns. Pain well controlled. Planning on surgery tomorrow and eating well today. On discussion with his daughter she describes more rapid onset of ambulatory dysfunction over the last year. Review of Systems Review of Systems: All systems reviewed & are unremarkable except as noted in Subjective Physical Exam Constitutional: WD/WN, vitals as above Respiratory: normal respiratory effort, lungs clear to auscultation Cardiovascular: RRR, no murmur, no edema Gastrointestinal (Abdomen): Percussion/Palpation: abdomen soft; abdomen nontender Musculoskeletal: Shortened and externally rotated left leg. Platar/dorsiflexion 1st MTP 4/5 compared to right 5/5 Swelling left fingers, cap refil < 2s, sensation intact Neurologic: awake; not confused Psychiatric: A+Ox3, euthymic affect Results & Data Results & Data ([facility]) Vital Signs (Past 12 Hours) Vital Signs Temp Pulse Resp BP Pulse Ox 09/27/21 15:36 36.5 C 79 16 127/63 92 09/27/21 07:43 37.3 C 83 18 126/68 100 PG Care Time/CCT Total # of Minutes Spent Total Time Spent with Patient: Total time spent is greater than 50% in coordination of care (as documented) at patient's floor/unit and/or counseling patient: Coding Level of Care Code 91727 Subseq Hosp Care Lvl 2 Diagnoses Displaced fracture of left femoral neck S72.002A Closed fracture of left distal radius S52.532A Encounter type: initial encounter Fracture morphology: Colles' [place] W19.XXXA Osteoporosis, unspecified Hypothyroidism E03.9 Hypothyroidism type: unspecified AAA (abdominal aortic aneurysm) I71.4 Presence of rupture: without rupture (1) Closed fracture of left distal radius Encounter type: initial encounter Fracture morphology: Colles' Qualified Code(s): S52.532A - Colles' fracture of left radius, initial encounter for closed fracture (2) Hypothyroidism Hypothyroidism type: unspecified Qualified Code(s): E03.9 - Hypothyroidism, unspecified (3) AAA (abdominal aortic aneurysm) Presence of rupture: without rupture Qualified Code(s): I71.4 - Abdominal ao rtic aneurysm, without rupture
--- NOTE | 2021-09-27 18:32 | Anesthesiology Consultation ---
Date of Service September 27, 2021 Assessment & Plan Chart Review Chart Review: Acceptable Risk for Surgery and Patient NOT seen in Pre Admission Testing Consults Requested none ASA ASA3 Proposed Anesthesia Anesthesia Type: General Regional Regional Laterality: Left Site: Supraclavicular Anesthesia Line Insertion: Arterial line History Surgery Operation Date: 09/28/21 07:30 Proposed Procedures p Left Bipolar Hemiarthroplasaty, - Miko Medina M.D. s Left Distal Radius Open Reduction Internal Fixation - Miko Medina M.D. Height/Weight Height: 6 ft Weight: 93.2 kg Allergies Allergy/AdvReac Type Severity Reaction Status Date / Time No Known Allergies Allergy Verified 09/26/21 15:00 Medications Home Medications Medication Instructions Recorded Confirmed Last Taken cholecalciferol (vitamin D3) 50 2,000 units PO QAM cap 02/28/19 09/26/21 04/05/20 06:30 mcg (2,000 unit) capsule multivitamin (Multiple Vitamins) 1 tab PO QAM 02/28/19 09/26/21 04/05/20 06:30 ferrous sulfate 325 mg (65 mg 325 mg PO QAM #180 tab 03/14/20 09/26/21 04/05/20 06:30 iron) tablet acetaminophen 650 mg 1,300 mg PO QAM PRN 05/14/21 09/26/21 Unknown tablet,extended release (Tylenol Arthritis Pain) levothyroxine 50 mcg tablet 50 mcg PO DAILY #90 tab 08/13/21 09/26/21 Unknown (Euthyrox) omeprazole 20 mg capsule,delayed 20 mg PO DAILY #90 cap 08/13/21 09/26/21 Unknown release Active Medications Generic Name Dose Route Start Last Admin Trade Name Freq PRN Reason Stop Dose Admin Acetaminophen 1,000 mg 09/26/21 21:00 09/27/21 14:06 Acetaminophen 500 Mg Tab PO 10/26/21 20:59 1,000 mg TID DARIAN Administration Ferrous Sulfate 325 mg 09/27/21 09:00 09/27/21 07:19 Ferrous Sulfate 325 Mg Tab PO 10/27/21 08:59 325 mg QAM DARIAN Administration Sodium Chloride 1,000 mls @ 80 mls/hr 09/27/21 10:45 09/27/21 10:38 Nss 1000ml IV 10/27/21 10:44 80 mls/hr .[id number] DARIAN Administration Levothyroxine Sodium 50 mcg 09/27/21 06:30 09/27/21 05:41 Levothyroxine Sodium 50 Mcg Tablet PO 10/27/21 06:29 50 mcg DAILYBB DARIAN Administration Morphine Sulfate 2 mg 09/26/21 21:27 09/27/21 14:06 Morphine Sulfate 2 Mg/Ml Carp IV 10/10/21 21:26 2 mg Q3H PRN Administration Pain (1,2,3,4,5) & Pre PT Multivitamins 1 tab 09/27/21 09:00 09/27/21 07:19 Multivitamin Tab PO 10/27/21 08:59 1 tab QAM DARIAN Administration Pantoprazole Sodium 40 mg 09/27/21 09:00 09/27/21 07:18 Pantoprazole 40 Mg Tab PO 10/27/21 08:59 40 mg DAILY DARIAN Administration Senna/Docusate Sodium 2 tab 09/26/21 21:27 09/26/21 23:16 Docusate Sodium/Senna 50/8.6mg Tab PO 10/26/21 21:26 2 tab HS DARIAN Administration Vitamin D 2,000 units 09/27/21 09:00 09/27/21 07:18 Cholecalciferol 1,000 Units 25 Mcg Tab PO 10/27/21 08:59 2,000 units QAM DARIAN Administration Past Medical History Medical History AAA (abdominal aortic aneurysm) <4 cm, small, under surveillance Anemia BPH (benign prostatic hyperplasia) Choledocholithiasis CKD (chronic kidney disease) stage III (ARETHA 12/2019- now back to baseline) GERD (gastroesophageal reflux disease) Hiatal hernia History of colon cancer 12 years ago s/p surgery/oral pill HTN (hypertension) per records Hx SBO 01/2020 Hypothyroidism Osteoporosis, unspecified Pancreatitis due to common bile duct stone hx Rhabdomyolysis remote hx after fall SBO (small bowel obstruction) Seborrheic keratoses Urinary frequency Urinary incontinence Exercise / Class Metabolic Activity III < 4 Walking/Shop/Light housework Past Family History Family History Father , Age 72 No problems noted. Mother , Age 82 Breast cancer Family/Other No problems noted. Sister Breast cancer Uncle Prostate cancer Denies family history of Ovarian cancer Myocardial infarction Colorectal cancer Past Surgical History Surgical History History of back surgery AGE 13> LOWER BACK CYST REMOVAL FROM SPINAL CANAL > BENIGN History of colon surgery 12 YRS AGO> CANCEROUS TUMOR REMOVED History of colonoscopy History of esophagogastroduodenoscopy (EGD) History of inguinal hernia repair, bilateral History of tooth extraction Hx laparoscopic cholecystectomy Status post correction of deviated nasal septum Past Anesthesia History No Hx of Anesthesia Complications and No Family Hx of Anesthesia Complications History of PONV No Hx of PONV and No Hx of Motion Sickness Social History Smoking Status: Former smoker Smoking End Date: 40 YEARS AGO Hx Alcohol Use: Yes Alcohol type: beer alcohol intake frequency: holidays/special occasions only Hx Substance Use: No substance use type: does not use Physical Exam Vital Signs Last Vital Signs Temp 36.5 C 09/27/21 15:36 Pulse 79 09/27/21 15:36 Resp 16 09/27/21 15:36 BP 127/63 09/27/21 15:36 Pulse Ox 92 09/27/21 15:36 Testing Laboratory Results 09/27/21 06:47 09/27/21 06:47 PT 10.7 Seconds (9.0-12.0) 09/26/21 15:28 INR 1.0 (0.9-1.1) 09/26/21 15:28 APTT 26.7 Seconds (21.0-31.0) 09/26/21 15:28 Urine Color Yellow 09/26/21 15:51 Urine Appearance Clear (Clear) 09/26/21 15:51 Urine pH 5.0 (4.5-7.5) 09/26/21 15:51 Ur Specific [place] 1.011 (1.000-1.030) 09/26/21 15:51 Urine Protein Negative (Negative) 09/26/21 15:51 Urine Glucose (UA) Negative (Negative) 09/26/21 15:51 Urine Ketones Negative (Negative) 09/26/21 15:51 Urine Nitrite Negative (Negative) 09/26/21 15:51 Ur Leukocyte Esterase Negative (Negative) 09/26/21 15:51 Blood Type O Positive 09/26/21 15:20 Antibody Screen NEGATIVE 09/26/21 15:20 Electrocardiogram Date: 09/27/21 Findings: + NSR @ (at 73 w/ premature supraventricular complexes;septal infarct,age ?)
--- NOTE | 2021-09-27 18:59 | Electrocardiogram Report ---
Test Reason : Blood Pressure : / mmHG Vent. Rate : 075 BPM Atrial Rate : 075 BPM P-R Int : 166 ms QRS Dur : 088 ms QT Int : 408 ms P-R-T Axes : 075 011 035 degrees QTc Int : 455 ms Sinus rhythm with Premature supraventricular complexes Abnormal ECG Confirmed by Zana Salazar ([id number]) on 09/27/2021 6:58:40 PM Referred By: REFERRED SELF Confirmed By:José Salazar
[2021-09-27] MEDS: DOCUSATE SODIUM/SENNA 50/8.6MG TAB PO SCH (20:12)
[2021-09-28] MEDS: LEVOTHYROXINE SODIUM 50 MCG TABLET PO SCH (05:41)
[2021-09-28] MEDS: SODIUM CHLORIDE 0.9% 1000ML 1,000 ML IV SCH ×3 (05:43→23:42)
[2021-09-28] MEDS: MoRPHine SULFATE 2 MG/ML CARP IV PRN ×2 (06:09→21:16)
[2021-09-28] MEDS ORDERED: ONDANSETRON INJ 2 MG/ML 2 ML VIAL ONE (06:59)
[2021-09-28] MEDS ORDERED: fentaNYL citrate 100 MCG/2 ML VIAL ONE ×2 (06:59→09:22)
[2021-09-28] MEDS ORDERED: PROPOFOL IV EMULSION 10 MG/ML 20 ML VIAL IV ONE (06:59)
[2021-09-28] MEDS ORDERED: LIDOCAINE 2% 2 ML VIAL/AMP(20MG/ML) INFIL ONE (06:59)
[2021-09-28] MEDS ORDERED: ROCURONIUM BROMIDE 10 MG/ML 5 ML VIAL IV ONE (06:59)
[2021-09-28 07:35] LABS: BUN Creatinine Ratio 16.7 (10-20); Calcium 7.3 mg/dl (8.5-10.1); Creatinine Clr Calc Pharmacy 50.5 ml/min; Est GFR (African American) 62.2 ml/min; Est GFR (Non-African American) 53.7 ml/min; Potassium 3.6 mmol/L (3.5-5.1)
[2021-09-28] MEDS ORDERED: ROPIVACAINE 0.5% 5 MG/ML 30 ML VIAL ONE (07:36)
[2021-09-28] MEDS ORDERED: SUGAMMADEX SODIUM 200 MG/2 ML VIAL IV ONE (07:57)
[2021-09-28] MEDS ORDERED: LIDOCAINE 1% LOCAL 20 ML VIAL ONE (07:58)
[2021-09-28] MEDS ORDERED: BUPIVACAINE 0.5 % 5 MG/1 ML MPF 30ML VIAL ONE (07:58)
--- NOTE | 2021-09-28 08:03 | History & Physical Bridge Note ---
Date of Service September 28, 2021 History & Physical Bridge Note I have examined the patient, reviewed the History & Physical and in the interval since the performance of the History & Physical I have noted the following changes of clinical significance: no changes noted
[2021-09-28] MEDS ORDERED: ceFAZolin 2,000 MG/15 ML IV PUSH IV ONE (08:07)
[2021-09-28] MEDS ORDERED: TRANEXAMIC ACID 100 MG/ML 10 ML VIAL IV ONE (10:00)
--- NOTE | 2021-09-28 10:07 | Operative Report ---
Post Operative Report Pre & Post Diagnosis Operation Date: 09/28/21 07:30 Pre-Op Diagnosis: 1. Left hip femoral neck fracture 2. Left wrist 4+ part intraarticular distal radius fracture Post-Op Diagnosis: 1. Left hip femoral neck fracture 2. Left wrist severely comminuted 8+ part intraarticular distal radius fracture I identified the patient and participated in the time-out.: Yes Procedure Operation Date: 09/28/21 07:30 Actual Procedures 1. Left hip hemiarthroplasty for displaced femoral neck fracture (72460) 2. Left wrist open reduction and internal fixation of severely comminuted 8+ part intra-articular distal radius fracture (75109 - 22) - Miko Medina M.D. Surgeon Miko Medina [employer] Layout Designer Gerald Rodriguez PA-C Estimated Blood Loss 125 Findings Consistent with Post-Op Diagnosis Specimens None Drains None Anesthesia Type General Regional Complications none Disposition Disposition: Recovery Room Indications Mr. Pemberton is an 86-year old male who injured his left hip and left wrist during a ground-level fall. History, clinical exam, and imaging were consistent with the above diagnosis. Risks, benefits, and alternatives of surgery were explained in detail. The patient understood all this and wished to proceed. Description of Procedure Hip hemiarthoplasty components implanted: Biomet Echo Bi-Metric press-fit [id number] Standard Femoral Stem 53mm RingLoc Bi-Polar Shell with +3mm Neck Patient was identified in the preoperative holding area. Operative extremities were marked. Regional blockade was performed in the left upper extremity by the Anesthesia Staff. Patient was then brought back to the operating room and general anesthesia was induced without complication. Appropriate weight-based dose of Ancef was infused intravenously for antibiotic prophylaxis. Patient was then turned in the lateral decubitus position with the left hip up. Hip positioner was applied to hold the pelvis stable. Axillary roll was placed and all bony prominences were well padded. The left leg was then prepped and draped in a standard sterile fashion using Chlorhexidine prep. I made an incision over the lateral aspect of the hip for a posterolateral approach. I then dissected through subcutaneous tissues down to the iliotibial band. The iliotibial band was divided in line with its fibers at the posterior third of the greater trochanter. Greater trochanteric bursectomy was then performed to expose the posterolateral aspect of the hip. I released the piriformis tendon and short external rotators off of their attachment point at the posterolateral aspect of the greater trochanter. These tendons was tagged with #2 FiberWire sutures in a locking Sumpter fashion for later repair. I then made a T-capsulotomy of the posterior hip joint capsule. The inferior leaf the capsulotomy was tagged with a #1 Vicryl suture for retraction during hip reduction and later repair. The femoral neck fracture was then easily identified. Comminuted fracture fragments were removed as they were encountered. I then marked the femoral neck about 1 cm proximal to the lesser trochanter and made the proximal femoral cut in line with the angle given by the proximal femoral resection guide. Femoral neck fracture fragments were then removed proximal to the neck cut. The femoral head was then removed and sized. Ligamentum teres was resected from the depth of the acetabulum and the acetabulum was copiously irrigated with sterile saline to insure that there were no remaining bone fragments. I then placed an appropriately-sized trial head into the acetabulum. It seated fully, had free range of motion, and had a good suction seal. I then used the box osteotome to remove a rectangle of bone at the post erolateral femur in line with the femoral canal to ensure that I was completely lateralized into the medial wall of the greater trochanter. Canal finder was then used down the center of the femoral canal. I then used a lateralizing reamer to ensure that I was completely lateralized to avoid varus positioning of the implant. I then sequentially reamed with the canal reamers until I got good cortical chatter. I then sequentially broached until I achieved good cortical fit. The final femoral stem was impacted into place. This showed excellent rotational stability. I then trialed with various neck lengths on the femoral stem while taking the hip through full range of motion. I selected a neck length that gave good stability of the hip through full range of motion, including in flexion, adduction, and internal rotation, as well as good range of motion in flexion and extension, and equal leg lengths. I then removed the trial femoral head and impacted the final femoral head onto the Presley taper of the femoral stem. I then again reduced the hip and took it through full range of motion. Again, there was excellent stability of the hip with full range of motion. I was then satisfied with the procedure. The wound was copiously irrigated with sterile saline via pulsatile irrigation. I then closed the posterior capsulotomy with #2 FiberWire suture. I then made three drill holes in the po sterior aspect of the greater trochanter and passed the previously placed FiberWire sutures in the piriformis tendon and short external rotators through these drill holes. The tendons were reapproximated and tied with the hip held in external rotation. I then closed the iliotibial band with a #1 Vicryl suture as a tacking stitch followed by a running #0 V-Lock suture. Deep dermal tissue was then closed with 2-0 V-Lock, and subcutaneous tissue was closed with 3-0 V- Lock. Wound bed was then anesthetized with a 50-50 mixture of 1% lidocaine and 0.5% Marcaine without epinephrine. The incision was then sealed with Dermabond. Sterile dressings were then applied with Silverlon. Drapes were then removed and a hip abduction pillow was placed. I then proceeded with the left wrist fracture fixation with a separate prep and drape. Tourniquet was placed on the left upper arm. The arm was then prepped and draped in a standard sterile fashion using Chlorhexidine prep. The arm was then exsanguinated with an Esmarch, and the tourniquet was inflated. Longitudinal incision was made directly over the flexor carpi radialis. The superficial and deep portions of the FCR tendon sheath were then opened longitudinally, and Parona's space was entered. Abundant hematoma was encountered, and evacuated. The pronator quadratus appeared nearly completely obliterated, and I elevated the torn remnants of the pronator off of the numerous distal radius fracture fragments. Fracture site was then inspected. This was a severely comminuted and significantly displaced distal radius fracture. There were numerous very small cortical cancellous fracture fragments, greater than 8 separate fragments. Fracture fragments were mobilized, and reduction maneuver was then performed. K-wire was placed down the radial styloid and across the fracture site to temporarily hold the reduction during plate application. After adequate reduction had been achieved, I then selected an appropriately sized plate from the Arthrex variable-angle distal radius volar locking plate set. I selected a longer 5 hole plate due to the fracture comminution extending proximally into the radial diaphysis. The plate was then positioned appropriately on the distal radius and temporarily held in place with a K-wire. I verified acceptable reduction of the numerous fracture fragments and plate placement under fluoroscopic imaging. Once I was satisfied with this, I proceeded with screw placement. Locking screws were placed distally, and non-locking and locking screws were placed into the radial shaft where appropriate. I obtained final fluoroscopic imaging to ensure proper screw length and trajectory, as well as fracture reduction. I also performed a shuck test of the distal radial ulnar joint to ensure that it was stable. There were no remaining remnants of the pronator quadratus that could be closed over the plate. Tourniquet was then let down, and hemostasis was achieved with bipolar electrocautery. Wound was thoroughly irrigated with sterile saline, and was then closed in layers. Sterile dressings were then applied with Xeroform, sterile gauze, and sterile Webril, followed by a volar plaster splint and Tom wrap. The drapes were removed, the patient was awakened from general anesthesia and taken to the Post Anesthesia Care Unit in stable condition. There were no immediate complications to the procedure. I was present and scrubbed for the entire procedure. The distal radius fracture was very severely comminuted into greater than 8 separate fracture fragments, with significant proximal extension of the fracture into the radial diaphysis. The complexity and extent of the fracture pattern required and approximately 40% longer incision than normal to accommodate a larger plate, and the time to achieve fixation into the numerous fracture fragments took at least 60% longer than normal. The distal radius fracture fixation portion of the procedure therefore qualifies for a 22 modifier. Due to the complex nature of the procedure, the entire surgery was performed with the operational assistance of Gerald Rodriguez PA-C. The assistant hairstylist, under direct supervision, was involved in the performance of all aspects of the surgical procedure including patient positioning, tissue retraction, hemostasis, wound closure, and dressing application. I attest to the content of the Intraoperative Record and any orders documented therein. Any exceptions are noted below.
[2021-09-28] MEDS ORDERED: TRANEXAMIC ACID 1,000 MG **IV Pre-op IV SCH (10:15)
[2021-09-28] MEDS ORDERED: SUCCINYLCHOLINE 100MG/5ML SYR IV ONE (10:37)
[2021-09-28] MEDS ORDERED: DEXAMETHASONE SOD INJ 4 MG/ML VIAL ONE (10:37)
[2021-09-28] MEDS ORDERED: PROMETHAZINE HCL 12.5 MG in SODIUM CHLORIDE 0.9% 50 ML IV PRN (12:12)
[2021-09-28] MEDS ORDERED: ONDANSETRON INJ 2 MG/ML 2 ML VIAL IV PRN ×2 (12:12→13:24)
[2021-09-28] MEDS ORDERED: LABETALOL HCL IV 5 MG/ML 20ML IV PRN (12:12)
[2021-09-28] MEDS ORDERED: ATROPINE SULFATE 0.1 MG/ML 10ML SYR IV PRN (12:12)
[2021-09-28] MEDS ORDERED: ePHEDrine sulfate 50 MG/ML AMP IV PRN (12:12)
[2021-09-28] MEDS ORDERED: NALOXONE HCL 0.4 MG/1 ML VIAL/CARP IV PRN ×2 (12:12→13:24)
[2021-09-28] MEDS ORDERED: fentaNYL citrate 100 MCG/2 ML VIAL IV PRN (12:12)
--- NOTE | 2021-09-28 12:42 | Fluoroscopy Report ---
FL wrist LT 2V CLINICAL HISTORY: ORIF LEFT WRIST TECHNIQUE: 2 views were obtained with the C-arm in the OR with the above procedure. Total fluoroscopy time was 40 seconds. Total skin dose was 1.04 mGy. Comparison: None available at the time of this dictation. FINDINGS/IMPRESSION: Intraoperative images were obtained of open reduction internal fixation of left wrist. Please correlate with intraoperative fluoroscopy and operative report. ACT 112: Negative or not required by law. Electronically signed by: Juvenal Kumar M.D. 09/28/2021 12:41 PM
--- NOTE | 2021-09-28 12:43 | Anesthesiology Progress Note ---
Date of Service September 28, 2021 Anesthesia Post Procedure Vital Signs Vital Signs: Temp Pulse Pulse Resp BP BP Pulse Ox 09/28/21 12:40 36.9 C 90 20 158/64 H 95 09/28/21 12:30 88 20 155/60 H 93 09/28/21 12:20 80 18 155/60 H 95 09/28/21 12:10 81 18 158/62 H 96 09/28/21 12:00 83 18 159/63 H 96 09/28/21 11:53 36.1 C L 90 18 160/65 H 97 09/27/21 22:42 37.3 C 81 17 130/72 93 09/27/21 15:36 36.5 C 79 16 127/63 92 Pain Intensity Left Wrist: Pain Intensity: 5 Left Hip: Pain Intensity: 6 Transfer of Care Handoff Completed per policy Notes Mental Status: alert / awake / arousable Patient Amnestic to Procedure: Yes Nausea / Vomiting: adequately controlled Pain: adequately controlled Airway Patency, RR, SpO2: stable & adequate BP & HR: stable & adequate Hydration State: stable & adequate Anesthetic Complications: no major complications apparent
--- NOTE | 2021-09-28 12:57 | XRay Report ---
XR hip 1V LT w pelvis CLINICAL HISTORY: post op bipolar TECHNIQUE: 2 views of the left hip and single frontal view of the pelvis were obtained. Comparison: Comparison is made to left femur radiographs 09/26/2021 FINDINGS: Interval placement of left total hip arthroplasty. The alignment is anatomic. Joint spaces are well-p reserved. Subcutaneous emphysema is seen in the left hip. IMPRESSION: Status post left total hip arthroplasty. Expected postoperative appearance. ACT 112: Negative or not required by law. Electronically signed by: Juvenal Kumar M.D. 09/28/2021 12:56 PM
--- NOTE | 2021-09-28 12:59 | XRay Report ---
XR wrist LT 2V CLINICAL HISTORY: postop ORIF TECHNIQUE: 3 views of the left wrist were obtained. Comparison: Comparison is made to left forearm radiograph 09/26/2021 FINDINGS: Evaluation of fine detail is limited by overlying cast. There is interval plate and screw fixation of previously noted distal radial fracture. The alignment is anatomic. Joint spaces are well-preserved. No soft tissue abnormality is seen. IMPRESSION: Expected postoperative appearance of plate and screw fixation of previously noted distal radial fract ure. ACT 112: Negative or not required by law. Electronically signed by: Juvenal Kumar M.D. 09/28/2021 12:58 PM
[2021-09-28] MEDS ORDERED: METOCLOPRAMIDE HCL INJ 5 MG/ML 2 ML VIAL IV PRN (13:24)
[2021-09-28] MEDS ORDERED: bisacodyL 10 MG SUPP PR PRN (13:24)
[2021-09-28] MEDS ORDERED: MAGNESIUM HYDROXIDE SUSP 30 ML UDC PO PRN (13:24)
[2021-09-28] MEDS: ACETAMINOPHEN 500 MG TAB PO SCH ×3 (14:08→20:17)
[2021-09-28] MEDS: PANTOprazole 40 MG TAB PO SCH (14:08)
[2021-09-28] MEDS: FERROUS SULFATE 325 MG TAB PO SCH (14:09)
[2021-09-28] MEDS: CHOLECALCIFEROL 1,000 UNITS 25 MCG TAB PO SCH (14:09)
[2021-09-28] MEDS: MULTIVITAMIN TAB PO SCH (14:09)
[2021-09-28] MEDS: ceFAZolin 2000MG 2,000 MG/15 ML SYR IV SCH ×2 (16:25→23:25)
[2021-09-28] MEDS: CYANOCOBALAMIN (B-12) 500 MCG TABLET PO SCH (16:25)
--- NOTE | 2021-09-28 18:41 | Hospitalist Progress Note ---
Date of Service September 28, 2021 Assessment & Plan (1) Displaced fracture of left femoral neck: Plan: Acetaminophen and morphine for pain relief. Del Real catheter remains in place - can be discontinued when more mobile. Revised cardiac risk index: 0, 3.9% 30-day risk of , IA or cardiac arrest s/p left hip hemiarthroplasty 09/28 (2) Closed fracture of left distal radius: Plan: Reduced in the ER by orthopedics, appreciate ongoing management of this - s/p left radial ORIF 09/28 Elevate LUE to reduce swelling. (3) Fall: Plan: Many years of ambulatory dysfunction. No chest pain, shortness of breath or dizziness prior to falling. B12 level low. See supplementation below possibly contributing towards imbalance. PT OT postoperatively (4) Osteoporosis, unspecified: Plan: History of this on electronic health record however the patient has no reported DEXA scan and recent notes are on imaging. Vitamin D level 42.6. Consider DEXA scan as outpatient. (5) Hypothyroidism: Plan: TSH with a.m. labs as last TSH in 2019 Continue levothyroxine 50 mcg p.o. daily (6) AAA (abdominal aortic aneurysm): Plan: Noted on electronic health record is under surveillance however no recent imaging to confirm this. Noted is less than 4 cm on electronic health record. (7) B12 deficiency: Plan: Start cyanocobalamin 1000 mcg p.o. daily Follow-up with primary care physician Plan: VTE prophylaxis -deferred to orthopedics postoperatively Diet -regular Disposition -continued admission, likely need for rehabilitation Admission and Anticipated Discharge Date Admission Date: September 26, 2021 Subjective Patient seen postoperatively and doing very well. Full sensation in bilateral feet. Eating and drinking well. Not yet had a bowel movement. Del Real catheter still in place. Discussed B12 deficiency with patient and his daughter at bedside. Review of Systems Review of Systems: All systems reviewed & are unremarkable except as noted in Subjective Physical Exam Constitutional: WD/WN, vitals as above Eyes: + anicteric sclerae; normal pupil size Respiratory: normal respiratory effort, lungs clear to auscultation Cardiovascular: Rate/Rhythm: regular rate and regular rhythm Heart Sounds: no murmur Extremities: + edema (left hand) Gastrointestinal (Abdomen): Percussion/Palpation: abdomen soft; abdomen nontender Musculoskeletal: Neurovascularly intact in left fingers and left toes. Skin: no rashes, warm and dry Neurologic: awake; not confused Psychiatric: A+Ox3, euthymic affect Results & Data Results & Data ([facility]) Vital Signs (Past 12 Hours) Vital Signs Temp Pulse Pulse Resp BP BP Pulse Ox 09/28/21 16:09 36.7 C 79 16 108/64 92 09/28/21 15:20 36.5 C 90 18 126/77 91 09/28/21 14:10 78 16 136/74 97 09/28/21 13:40 37.4 C 77 16 130/76 96 09/28/21 13:10 37.4 C 79 16 145/81 H 94 09/28/21 13:00 36.9 C 84 17 137/74 95 09/28/21 12:50 36.9 C 83 19 142/84 H 94 09/28/21 12:40 36.9 C 90 20 158/64 H 95 09/28/21 12:30 88 20 155/60 H 93 09/28/21 12:20 80 18 155/60 H 95 09/28/21 12:10 81 18 158/62 H 96 09/28/21 12:00 83 18 159/63 H 96 09/28/21 11:53 36.1 C L 90 18 160/65 H 97 PG Care Time/CCT Total # of Minutes Spent Total Time Spent with Patient: Total time spent is greater than 50% in coordination of care (as documented) at patient's floor/unit and/or counseling patient: Coding Level of Care Code 74869 Subseq Hosp Care Lvl 2 Diagnoses Displaced fracture of left femoral neck S72.002A Closed fracture of left distal radius S52.532A Encounter type: initial encounter Fracture morphology: Colles' Fall W19.XXXA Osteoporosis, unspecified Hypothyroidism E03.9 Hypothyroidism type: unspecified AAA (abdominal aortic aneurysm) I71.4 Presence of rupture: without rupture B12 deficiency E53.8 (1) AAA (abdominal aortic aneurysm) Presence of rupture: without rupture Qualified Code(s): I71.4 - Abdominal aortic aneurysm, without rupture (2) Hypothyroidism Hypothyroidism type: unspecified Qualified Code(s): E03.9 - Hypothyroidism, unspecified (3) Closed fracture of left distal radius Encounter type: initial encounter Fracture morphology: Colles' Qualified Code(s): S52.532A - Colles' fracture of left radius, initial encounter for closed fracture
[2021-09-28] MEDS: DOCUSATE SODIUM/SENNA 50/8.6MG TAB PO SCH (20:18)
[2021-09-28] MEDS ORDERED: DOCUSATE SODIUM 100 MG CAP PO SCH (21:00)
[2021-09-28] MEDS ORDERED: SENNA 8.6 MG TAB PO SCH (21:00)
[2021-09-28] MEDS ORDERED: KETOROLAC TROMETHAMINE 15 MG/ML VIAL IV ONE (23:43)
[2021-09-29] MEDS: LEVOTHYROXINE SODIUM 50 MCG TABLET PO SCH (05:40)
[2021-09-29 08:27] LABS: Basophils # (auto) 0.02 K/uL (0-0.2); Basophils % (auto) 0.2 %; Eosinophils # (auto) 0.85 K/uL (0-0.5); Hematocrit (blood only) 34.2 % (42-52); Hemoglobin 12.1 g/dL (14.0-18.0); Immature Granulocytes # (auto) 0.03 K/uL (0.00-0.02); Immature Granulocytes % (auto) 0.3 %; Lymphocytes # (auto) 0.95 K/uL (1.2-3.4); Mean Corpuscular Hemoglobin 32.1 pg (25-34); Mean Corpuscular Hgb Conc 35.4 g/dL (32-36); Mean Corpuscular Volume 90.7 fL (80-100); Mean Platelet Volume 10.1 fL (7.4-10.4); Monocytes # (auto) 1.46 K/uL (0.11-0.59); Monocytes % (auto) 13.8 %; Neutrophils # (auto) 7.27 K/uL (1.4-6.5); Neutrophils % (auto) 68.7 %; Platelet Count 177 K/uL (130-400); RDW Coefficient of Variation 12.9 % (11.5-14.5); RDW Standard Deviation 42.9 fL (36.4-46.3); Red Blood Count 3.77 M/uL (4.7-6.1); White Blood Count 10.58 K/uL (4.8-10.8)
[2021-09-29 08:47] LABS: BUN Creatinine Ratio 17.1 (10-20); Calcium 7.7 mg/dl (8.5-10.1); Creatinine Clr Calc Pharmacy 41.5 ml/min; Est GFR (African American) 49.1 ml/min; Est GFR (Non-African American) 42.3 ml/min
[2021-09-29] MEDS ORDERED: MULTIVITAMIN TAB PO SCH (09:00)
--- NOTE | 2021-09-29 09:00 | Orthopedic Progress Note ---
Date of Service September 29, 2021 Assessment & Plan (1) Displaced fracture of left femoral neck: Plan: Postoperative day #1 status post left hip hemiarthroplasty for displaced femoral neck fracture and ORIF of a severely comminuted and significantly displaced left distal radius fracture. -May weight-bear as tolerated on his left leg. Maintain total hip precautions. Maintain the abduction pillow when in bed for 6 weeks. Out of bed with physical therapy. Keep the Silverlon dressing in place for 1 week. -No weightbearing through his left wrist. He may weight-bear through his left elbow on a platform walker. Keep his left wrist splint and dressings in place until he returns to orthopedic surgery clinic. -May discharge when stable from a medical perspective. Follow-up in orthopedic surgery clinic with Dr. Medina in 10 to 14 days from surgery. Please call [facility] at [phone] to make an appointment. Admission and Anticipated Discharge Date Admission Date: September 26, 2021 Subjective Patient resting comfortably. He has more pain in his left wrist than his left hip, but pain in both areas is fairly well controlled. He has not yet been up to ambulate. Physical Exam Physical Exam: Left wrist and left hip splint and dressings are clean, dry, and intact. Motor and sensory function is intact in the left hand and left foot. Specifically, sensation is intact in the median nerve distribution in his left hand, improved from initial injury. Results & Data ([facility]) Vital Signs (Past 12 Hours) Vital Signs Temp Pulse Resp BP Pulse Ox 09/29/21 07:01 36.7 C 72 18 111/62 92 09/29/21 03:40 37 C 63 18 97/57 L 90 09/28/21 22:45 37.3 C 68 18 100/64 90 Diagnostic Findings Postoperative x-rays of left hip and left wrist were reviewed. Alignment of the left wrist looks acceptable and nearly anatomic. Markedly improved from preoperatively. Left hip hemiarthroplasty looks good without dislocation. Leg lengths are roughly equal.
[2021-09-29] MEDS: MoRPHine SULFATE 2 MG/ML CARP IV PRN ×2 (09:14→13:37)
[2021-09-29] MEDS: ASPIRIN 325 MG ECTAB PO SCH (09:41)
[2021-09-29] MEDS: ACETAMINOPHEN 500 MG TAB PO SCH ×3 (09:41→20:15)
[2021-09-29] MEDS: MULTIVITAMIN TAB PO SCH (09:41)
[2021-09-29] MEDS: FERROUS SULFATE 325 MG TAB PO SCH (09:41)
[2021-09-29] MEDS: CYANOCOBALAMIN (B-12) 500 MCG TABLET PO SCH (09:41)
[2021-09-29] MEDS: CHOLECALCIFEROL 1,000 UNITS 25 MCG TAB PO SCH (09:41)
[2021-09-29] MEDS: PANTOprazole 40 MG TAB PO SCH (09:41)
[2021-09-29] MEDS: SODIUM CHLORIDE 0.9% 1000ML 1,000 ML IV SCH (14:20)
[2021-09-29] MEDS: DOCUSATE SODIUM/SENNA 50/8.6MG TAB PO SCH (20:14)
--- NOTE | 2021-09-29 20:27 | Hospitalist Progress Note ---
Date of Service September 29, 2021 Assessment & Plan (1) Displaced fracture of left femoral neck: Plan: Acetaminophen and morphine for pain relief. Del Real catheter remains in place - remove today. Revised cardiac risk index: 0, 3.9% 30-day risk of , [place] or cardiac arrest s/p left hip hemiarthroplasty 09/28 Doing well post operatively although not putting a lot of weight on his operated leg (2) Closed fracture of left distal radius: Plan: Reduced in the ER by orthopedics, appreciate ongoing management of this - s/p left radial ORIF 09/28 Elevate LUE to reduce swelling. (3) Hyponatremia: Plan: Suspect he is mildly hypovolemic post operatively with his BP low normal. Urine Na appropriately low. 2L NSS @ 80ml/hr overnight and recheck Na in AM. (4) Fall: Plan: Many years of ambulatory dysfunction. No chest pain, shortness of breath or dizziness prior to falling. B12 level low. See supplementation below possibly contributing towards imbalance. PT OT postoperatively (5) Osteoporosis, unspecified: Plan: History of this on electronic health record however the patient has no reported DEXA scan and recent notes are on imaging. Vitamin D level 42.6. Consider DEXA scan as outpatient. (6) Hypothyroidism: Plan: TSH with a.m. labs as last TSH in 2019 Continue levothyroxine 50 mcg p.o. daily (7) AAA (abdominal aortic aneurysm): Plan: Noted on electronic health record is under surveillance however no recent imaging to confirm this. Noted is less than 4 cm on electronic health record. (8) B12 deficiency: Plan: Start cyanocobalamin 1000 mcg p.o. daily Follow-up with primary care physician Plan: VTE prophylaxis -deferred to orthopedics postoperatively Diet -regular Disposition -continued admission, likely need for rehabilitation Admission and Anticipated Discharge Date Admission Date: September 26, 2021 Subjective Patient planning on [facility] at discharge. Low normal BP today however patient reports no dizziness or lightheadedness on standing. Del Real catheter in place. No numbness in left toes or fingers. Moving fingers much better today and swelling has improved. Review of Systems Review of Systems: All systems reviewed & are unremarkable except as noted in Subjective Physical Exam Constitutional: WD/WN, vitals as above Eyes: + anicteric sclerae; normal pupil size Respiratory: normal respiratory effort, lungs clear to auscultation Cardiovascular: Rate/Rhythm: regular rate and regular rhythm Heart Sounds: no murmur Extremities: + edema (left hand) Gastrointestinal (Abdomen): Percussion/Palpation: abdomen soft; abdomen nontender Skin: no rashes, warm and dry Neurologic: awake; not confused Psychiatric: A+Ox3, euthymic affect Results & Data Results & Data ([facility]) Vital Signs (Past 12 Hours) Vital Signs Temp Pulse Resp BP Pulse Ox 09/29/21 14:44 36.7 C 65 16 108/57 L 94 09/29/21 11:25 36.6 C 82 16 90/53 L 90 PG Care Time/CCT Total # of Minutes Spent Total Time Spent with Patient: Total time spent is greater than 50% in coordination of care (as documented) at patient's floor/unit and/or counseling patient: Coding Level of Care Code 35609 Subseq Hosp Care Lvl 2 Diagnoses Displaced fracture of left femoral neck S72.002A Closed fracture of left distal radius S52.532A Encounter type: initial encounter Fracture morphology: Colles' Fall W19.XXXA Osteoporosis, unspecified Hypothyroidism E03.9 Hypothyroidism type: unspecified AAA (abdominal aortic aneurysm) I71.4 Presence of rupture: without rupture B12 deficiency E53.8 Hyponatremia E87.1 (1) AAA (abdominal aortic aneurysm) Presence of rupture: without rupture Qualified Code(s): I71.4 - Abdominal aortic aneurysm, without rupture (2) Hypothyroidism Hypothyroidism type: unspecified Qualified Code(s): E03.9 - Hypothyroidism, unspecified (3) Closed fracture of left distal radius Encounter type: initial encounter Fracture morphology: Colles' Qualified Code(s): S52.532A - Colles' fracture of left radius, initial encounter for closed fracture
[2021-09-30] MEDS: SODIUM CHLORIDE 0.9% 1000ML 1,000 ML IV SCH (01:32)
[2021-09-30] MEDS: LEVOTHYROXINE SODIUM 50 MCG TABLET PO SCH (05:46)
[2021-09-30 06:13] LABS: Hematocrit (blood only) 32.4 % (42-52); Hemoglobin 11.1 g/dL (14.0-18.0); Mean Corpuscular Hemoglobin 31.4 pg (25-34); Mean Corpuscular Hgb Conc 34.3 g/dL (32-36); Mean Corpuscular Volume 91.5 fL (80-100); Mean Platelet Volume 10.2 fL (7.4-10.4); Platelet Count 211 K/uL (130-400); RDW Standard Deviation 43.7 fL (36.4-46.3); Red Blood Count 3.54 M/uL (4.7-6.1); White Blood Count 9.91 K/uL (4.8-10.8)
[2021-09-30 06:24] LABS: BUN Creatinine Ratio 21.5 (10-20); Calcium 7.6 mg/dl (8.5-10.1); Creatinine Clr Calc Pharmacy 44.9 ml/min; Est GFR (African American) 53.9 ml/min; Est GFR (Non-African American) 46.5 ml/min; Potassium 4.2 mmol/L (3.5-5.1)
[2021-09-30] MEDS: MoRPHine SULFATE 2 MG/ML CARP IV PRN ×3 (08:42→23:31)
[2021-09-30] MEDS: ACETAMINOPHEN 500 MG TAB PO SCH ×3 (08:43→20:10)
[2021-09-30] MEDS: ASPIRIN 325 MG ECTAB PO SCH (08:43)
[2021-09-30] MEDS: MULTIVITAMIN TAB PO SCH (08:43)
[2021-09-30] MEDS: CHOLECALCIFEROL 1,000 UNITS 25 MCG TAB PO SCH (08:43)
[2021-09-30] MEDS: CYANOCOBALAMIN (B-12) 500 MCG TABLET PO SCH (08:43)
[2021-09-30] MEDS: FERROUS SULFATE 325 MG TAB PO SCH (08:43)
[2021-09-30] MEDS: PANTOprazole 40 MG TAB PO SCH (08:43)
--- NOTE | 2021-09-30 09:25 | Hospitalist Progress Note ---
Date of Service September 30, 2021 Assessment & Plan (1) Displaced fracture of left femoral neck: Plan: s/p left hip hemiarthroplasty / Still not doing well with therapy per nursingcontinue (2) Closed fracture of left distal radius: Plan: Reduced in the ER by orthopedics, appreciate ongoing management of this - s/p left radial ORIF 09/28 Elevate LUE to reduce swelling. Orthopedic follow-up (3) Hyponatremia: Plan: Improvedstop IV fluids (4) Fall: Plan: Many years of ambulatory dysfunction. No chest pain, shortness of breath or dizziness prior to falling. B12 level low. See supplementation below possibly contributing towards imbalance. PT OT postoperatively B12 IM for now (5) Osteoporosis, unspecified: Plan: History of this on electronic health record however the patient has no reported DEXA scan and recent notes are on imaging. Vitamin D level 42.6. Consider DEXA scan as outpatient. (6) Hypothyroidism: Plan: TSH with a.m. labs as last TSH in 2019 Continue levothyroxine 50 mcg p.o. daily (7) AAA (abdominal aortic aneurysm): Plan: Noted on electronic health record is under surveillance however no recent imaging to confirm this. Noted is less than 4 cm on electronic health record. (8) B12 deficiency: Plan: IM B12 for now as above Follow-up with primary care physician Plan: Noted fluctuating blood pressure; clinically stableobserve VTE prophylaxis -deferred to orthopedics postoperatively-communicated with Ortho; current aspirin is acceptable according to them Diet -regular Disposition -continued admission, likely need for rehabilitation Admission and Anticipated Discharge Date Admission Date: September 26, 2021 Subjective Follow-up of fall and femoral neck fracture, radial fractureno complaints - not had a bowel movement; [place] removed Physical Exam Physical Exam: Constitutional and general: No acute distress, looks biologic age Head and face: No puffiness, atraumatic Eyes: No scleral icterus, extraocular movements normal Neck: Supple, no JVD Skin/dermatologic/integument: No rash, no purpura Hematologic and lymphatic: pallor +, no petechia Gastrointestinal/abdomen: Mildly distended, soft, nonacute Neurologic: Cranial nerves intact, nonfocal Psychiatry: Awake, alert, pleasant, communicative Cardiovascular: Heart rhythm regular, no rub, systolic murmur 1 x 6,no gallop Respiratory: Chest movements equal, no use of accessory muscles, no adventitious sounds Extremities: No edema, no cyanosis Results & Data Results & Data ([facility]) Vital Signs (Past 12 Hours) Vital Signs Temp Pulse Resp BP Pulse Ox 09/30/21 07:40 36.9 C 67 16 113/58 L 95 09/29/21 22:30 37.5 C 74 18 122/76 92 Laboratory Results Laboratory Results - last 24 hr 09/29/21 09/29/21 09/29/21 08:11 17:25 17:25 WBC RBC Hgb Hct MCV MCH MCHC RDW Std Deviation RDW Coeff of Kel Plt Count MPV Sodium Potassium Chloride Carbon Dioxide Anion Gap BUN Creatinine Est Cr Clr Drug Dosing Est GFR ( Amer) Est GFR (Non-Af Amer) BUN/Creatinine Ratio Glucose Osmolality 286 Calcium Urine Osmolality 251 L Ur Random Sodium < 10 09/30/21 09/30/21 05:43 05:43 WBC 9.91 RBC 3.54 L Hgb 11.1 L Hct 32.4 L MCV 91.5 MCH 31.4 MCHC 34.3 RDW Std Deviation 43.7 RDW Coeff of Kel 13.0 Plt Count 211 MPV 10.2 Sodium 135 L Potassium 4.2 Chloride 104 Carbon Dioxide 23 Anion Gap 8 BUN 29 H Creatinine 1.35 Est Cr Clr Drug Dosing 44.9 Est GFR ( Amer) 53.9 Est GFR (Non-Af Amer) 46.5 BUN/Creatinine Ratio 21.5 H Glucose 111 H Osmolality Calcium 7.6 L Urine Osmolality Ur Random Sodium PG Care Time/CCT Total # of Minutes Spent Total Time Spent with Patient: Total time spent is greater than 50% in coordination of care (as documented) at patient's floor/unit and/or counseling patient: Coding Level of Care Code 27161 Subseq Hosp Care Lvl 2 Diagnoses Displaced fracture of left femoral neck S72.002A Closed fracture of left distal radius S52.532A Encounter type: initial encounter Fracture morphology: Colles' Hyponatremia E87.1 Fall W19.XXXA Osteoporosis, unspecified Hypothyroidism E03.9 Hypothyroidism type: unspecified AAA (abdominal aortic aneurysm) I71.4 Presence of rupture: without rupture B12 deficiency E53.8 (1) AAA (abdominal aortic aneurysm) Presence of rupture: without rupture Qualified Code(s): I71.4 - Abdominal aortic aneurysm, without rupture (2) Hypothyroidism Hypothyroidism type: unspecified Qualified Code(s): E03.9 - Hypothyroidism, unspecified (3) Closed fracture of left distal radius Encounter type: initial encounter Fracture morphology: Colles' Qualified Code(s): S52.532A - Colles' fracture of left radius, initial encounter for closed fracture
[2021-09-30] MEDS: CYANOCOBALAMIN 1000 MCG/ML VIAL IM SCH (10:35)
[2021-09-30] MEDS: DOCUSATE SODIUM/SENNA 50/8.6MG TAB PO SCH (20:10)
[2021-10-01] MEDS ORDERED: MELATONIN 3 MG TAB PO PRN (01:43)
[2021-10-01] MEDS: LEVOTHYROXINE SODIUM 50 MCG TABLET PO SCH (05:42)
[2021-10-01 06:19] LABS: Basophils # (auto) 0.03 K/uL (0-0.2); Basophils % (auto) 0.4 %; Eosinophils # (auto) 0.87 K/uL (0-0.5); Eosinophils % (auto) 12.1 %; Hematocrit (blood only) 32.4 % (42-52); Hemoglobin 11.2 g/dL (14.0-18.0); Immature Granulocytes # (auto) 0.05 K/uL (0.00-0.02); Immature Granulocytes % (auto) 0.7 %; Lymphocytes # (auto) 0.71 K/uL (1.2-3.4); Lymphocytes % (auto) 9.9 %; Mean Corpuscular Hemoglobin 31.8 pg (25-34); Mean Corpuscular Hgb Conc 34.6 g/dL (32-36); Mean Platelet Volume 9.8 fL (7.4-10.4); Monocytes # (auto) 0.98 K/uL (0.11-0.59); Monocytes % (auto) 13.6 %; Neutrophils # (auto) 4.56 K/uL (1.4-6.5); Neutrophils % (auto) 63.3 %; Platelet Count 247 K/uL (130-400); RDW Coefficient of Variation 13.1 % (11.5-14.5); RDW Standard Deviation 43.9 fL (36.4-46.3); Red Blood Count 3.52 M/uL (4.7-6.1)
[2021-10-01 06:41] LABS: BUN Creatinine Ratio 23.4 (10-20); Calcium 8.6 mg/dl (8.5-10.1); Creatinine Clr Calc Pharmacy 48.8 ml/min; Est GFR (African American) 59.8 ml/min; Est GFR (Non-African American) 51.6 ml/min; Potassium 4.1 mmol/L (3.5-5.1)
[2021-10-01] MEDS: ASPIRIN 325 MG ECTAB PO SCH (08:26)
[2021-10-01] MEDS: CHOLECALCIFEROL 1,000 UNITS 25 MCG TAB PO SCH (08:26)
[2021-10-01] MEDS: MULTIVITAMIN TAB PO SCH (08:26)
[2021-10-01] MEDS: FERROUS SULFATE 325 MG TAB PO SCH (08:26)
[2021-10-01] MEDS: CYANOCOBALAMIN 1000 MCG/ML VIAL IM SCH (08:27)
[2021-10-01] MEDS: PANTOprazole 40 MG TAB PO SCH (08:27)
[2021-10-01] MEDS: ACETAMINOPHEN 500 MG TAB PO SCH (08:31)
[2021-10-01] MEDS: MoRPHine SULFATE 2 MG/ML CARP IV PRN (08:31)
[2021-10-01] MEDS ORDERED: oxyCODONE HCL IR 5 MG TAB (IMMEDIATE RELEASE) PO PRN ×2 (09:10→11:00)
--- NOTE | 2021-10-01 09:53 | Discharge Summary ---
Date of Service September 30, 2021 Admission HPI Per Admitting Provider Freddy Pemberton is an 86 year old male who presents to the ER after a fall outside where he lost his balance and slipped on ice. He has been unable to bear weight on his left leg since. He reports ambulatory dysfunction for many years for which he undergoes physical therapy as his insurance allows. He is also complaining of left wrist pain with difficulty moving his fingers although he thinks this is due to pain rather than weakness. He denies any loss of sensation in his toes on his left foot. He denies hitting his head. No chest pain, shortness of breath or dizziness prior to falling. He reports walking daily with good exercise tolerance. No history of myocardial infarction or strokes. No chest pain or shortness of breath while walking. In the ER on imaging he was noted to have a mildly displaced left femoral neck fracture and comminuted fracture of the distal radius. Orthopedics have been contacted. He was referred to medicine for admission ongoing management. Principal Diagnosis Displaced fracture left femural neck Discharge Exam Constitutional and general: No acute distress, looks biologic age Head and face: No puffiness, atraumatic Eyes: No scleral icterus, extraocular movements normal Neck: Supple, no JVD Skin/dermatologic/integument: No rash, no purpura Hematologic and lymphatic: pallor +, no petechia Gastrointestinal/abdomen: Mildly distended, soft, nonacute Neurologic: Cranial nerves intact, nonfocal Psychiatry: Awake, alert, pleasant, communicative Cardiovascular: Heart rhythm regular, no rub, systolic murmur 1 x 6,no gallop Respiratory: Chest movements equal, no use of accessory muscles, no adventitious sounds Extremities: No edema, no cyanosis Vital Signs Temp Pulse Resp BP Pulse Ox 10/01/21 07:35 36.9 C 72 17 139/66 93 09/30/21 22:20 36.9 C 87 14 109/70 92 09/30/21 16:45 36.9 C 69 16 91/54 L 92 Intake and Output 09/30/21 10/01/21 10/01/21 22:59 06:59 14:59 Intake Total 400 / 1840 800 / 1840 Output Total 1200 / 3325 2125 / 3325 Balance -800 / -1485 -1325 / -1485 Intake: Oral 400 / 1200 800 / 1200 Output: Urine Amount (Catheter) 1200 / 3325 2124 / 3324 External 1200 / 3325 2124 Other: # Unmeasured Voids 1 Discharge Data Allergies Allergy/AdvReac Type Severity Reaction Status Date / Time No Known Allergies Allergy Verified 09/26/21 15:00 Consultations 09/26/21 16:49 Consult Orthopedic Surgery Stat Procedures Performed Operation Date: 09/28/21 07:30 Actual Procedures p Left Bipolar Hemiarthroplasty,(Left) - Miko Medina M.D. s Left Distal Radius Open Reduction Internal Fixation(Left) - Miko Medina M.D. Ordered Studies 09/26/21 14:54 CT head/brain wo con Stat 09/27/21 18:33 US - OR guided needle placemen Stat 09/28/21 FL wrist LT 2V Routine Hospital Course (1) Displaced fracture of left femoral neck: s/p left hip hemiarthroplasty 3 Discharge to rehab for further therapy (2) Closed fracture of left distal radius: Reduced in the ER by orthopedics, appreciate ongoing management of this - s/p left radial ORIF 09/28 Orthopedic follow-up (3) Hyponatremia: Improved (4) Fall: Many years of ambulatory dysfunction. No chest pain, shortness of breath or dizziness prior to falling. B12 level low. See supplementation below possibly contributing towards imbalance. PT OT postoperatively Supplement B12 (5) Osteoporosis, unspecified: History of this on electronic health record however the patient has no reported DEXA scan and recent notes are on imaging. Vitamin D level 42.6. Consider DEXA scan as outpatient. (6) Hypothyroidism: TSH acceptable Continue levothyroxine 50 mcg p.o. daily (7) AAA (abdominal aortic aneurysm): Noted on electronic health record is under surveillance however no recent imaging to confirm this. Noted is less than 4 cm on electronic health record. Follow-up with PCP (8) B12 deficiency: Discharged on p.o. 1000 mcg Follow-up with primary care physician Stable for DC to rehab Total Time Total Time Spent Total Time Spent (In Minutes): 35 minutes Discharge Plan Discharge Items Patient Disposition: Transfer Inpatient Rehab Fac Reason For Visit: LEFT FEMORAL NECK FRACTURE, DISTAL RADIUS FRACTURE Discharge Diagnosis: Displaced fracture left femoral neck, distal radial # Condition on Discharge: Fair Activity: Per Instructions section Non-emergency contact: Primary Care Provider and Surgeon Call non-emergency contact if: your pain is not controlled, your temperature is above 101.5, your wound has increased redness and your wound has increased drainage Follow-up/Referrals: Nenita Casillas MD [Primary Care Provider] - (1 weeks after DC) Miko Medina M.D. [Physician] - (in 1 week) Diet: Regular Addtl Attending Provider Instructions: Things to Watch Out For -Go to the Emergency Room if you have sudden onset of chest pain, shortness of breath, or uncontrollable pain. -Call the orthopedics clinic immediately if you have a sudden increase in the amount of wound drainage or the drainage becomes thick, yellow or green, or foul-smelling. -For routine questions regarding your hip surgery, call the orthopedics clinic at [phone] during regular business hours (8am-5pm). For urgent issues after regular business hours, you may call the clinic to be connected to the on-call physician. Left Hip Dressings [-A special waterproof, silver-impregnated dressing was placed on your left hip. Keep this dressing in place for 1 week after surgery. You may shower with the waterproof dressing in place, but do not soak the dressing in the bathtub or pool. -One week after surgery, you may remove the waterproof dressing from your left hip. You may continue to shower, and let water run BRIEFLY over the hip incision, but do not soak the incision in the bathtub or pool for 2 weeks. You may also gently clean the incision with mild soap and water; pat the incision dry after cleaning-do not rub the incision. Apply a new dressing daily thereafter.] Left Wrist Splint/Dressings -Do not remove your splint or dressings from your left wrist until you follow up in clinic or with therapy. -Keep the splint and dressings clean and dry. If the splint padding gets damp, you may use a biology department chair on a low heat setting to dry it out. If the splint padding is soaked, call the clinic to have the splint replaced. -Do not put any objects down inside the splint (such as coat hangers). They could scratch your skin and cause a serious infection underneath the splint. Weight Bearing Left Leg -You may weight bear as tolerated on your operative leg. Use a walker for support and balance. You must use a platform walker to bear weight through your left elbow, NOT through your left wrist. Left Arm Sling/Activity -Keep your hand elevated and move your fingers frequently to reduce swelling. -You may wear a sling for comfort, but come out of the sling 4-5 times a day for active range of motion exercises for your shoulder and elbow. -Do not lift any objects greater than 1 pound or bear any weight through your left arm. Total Hip Precautions -Do not cross your legs, flex your hip past 90 degrees, or internally rotate your hip. -Keep the abduction pillow in place when you are in bed for the first 6 weeks after surgery. You may remove it when you are out of bed. -If you hear a clunk and your leg is suddenly much shorter and turned inward compared to your other leg, come to the Emergency Department immediately. Followup -You will need to follow-up with Dr. Medina in orthopedic surgery clinic 10- 14 days after surgery. Please call [facility] at [phone] to make an appointment. 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 Maintain total hip precautions. Maintain the abduction pillow when in bed for 6 weeks. Out of bed with physical therapy. Keep the Silverlon dressing in place for 1 week. -No weightbearing through his left wrist. He may weight-bear through his left elbow on a platform walker. Keep his left wrist splint and dressings in place until he returns to orthopedic surgery clinic. -Follow-up in orthopedic surgery clinic with Dr. Medina in 10 to 14 days from surgery. Please call [facility] at [phone] to make an appointment. Pending Studies at Discharge: No Stand-Alone Forms: [facility] Skilled Items Patient informed of condition?: Yes DNR: No Discharge Level of Care: Acute rehab Communicable Disease: No Discharge Prognosis: Stable Lines: None Urinary Catheter: No Medications and DC Order Prescriptions: New acetaminophen [Tylenol Extra Strength] 500 mg Tablet 1,000 mg PO TID Qty: 30 RF: 0 aspirin [Ecotrin] 325 mg Tablet,Delayed Release (Dr/Ec) 325 mg PO QAM Qty: 30 RF: 0 bisacodyl 10 mg Suppository 10 mg MN DAILY PRN (Reason: constipation) Qty: 30 RF: 0 sennosides-docusate sodium [Senokot-S] 8.6-50 mg Tablet 2 tab PO HS Qty: 60 RF: 0 melatonin 3 mg Tablet 3 mg PO HS PRN (Reason: sleep) Qty: 30 RF: 0 cyanocobalamin (vitamin B-12) 500 mcg Tablet 1,000 mcg PO QAM Qty: 60 RF: 0 Continued omeprazole 20 mg capsule,delayed release(DR/EC) 20 mg PO DAILY Qty: 90 RF: 3 levothyroxine [Euthyrox] 50 mcg tablet 50 mcg PO DAILY Qty: 90 RF: 3 multivitamin [Multiple Vitamins] tablet 1 tab PO QAM RF: 0 cholecalciferol (vitamin D3) 2,000 unit capsule 2,000 units PO QAM RF: 0 ferrous sulfate 325 mg (65 mg iron) tablet 325 mg PO QAM Qty: 180 RF: 0 Discontinued acetaminophen [Tylenol Arthritis Pain] 650 mg tablet extended release 1,300 mg PO QAM PRN (Reason: pain) RF: 0 Discharge Orders: Discharge Order (Routine); Ordered 10/01/21 Ordered By: Melany Joe Admission Data Admit Date/Time: 09/26/21 17:16 Attending Provider: Melany Joe Admit Provider: Arron Bae Primary Care Provider: Nenita Casillas Other Providers: [facility] ; Miko Medina Coding Level of Care Code D/C DAY MANAGEMENT >30 MINS Diagnoses Displaced fracture of left femoral neck S72.002A Closed fracture of left distal radius S52.532A Encounter type: initial encounter Fracture morphology: Colles' Hyponatremia E87.1 Fall W19.XXXA Osteoporosis, unspecified Hypothyroidism E03.9 Hypothyroidism type: unspecified AAA (abdominal aortic aneurysm) I71.4 Presence of rupture: without rupture B12 deficiency E53.8
--- NOTE | 2021-10-01 11:56 | Orthopedic Progress Note ---
Date of Service October 01, 2021 Assessment & Plan (1) Displaced fracture of left femoral neck: Plan: Postoperative day #3 status post left hip hemiarthroplasty for displaced femoral neck fracture and ORIF of a severely comminuted and significantly displaced left distal radius fracture. -May weight-bear as tolerated on his left leg. Maintain total hip precautions. Maintain the abduction pillow when in bed for 6 weeks. Out of bed with physical therapy. Keep the Silverlon dressing in place for 1 week. -No weightbearing through his left wrist. He may weight-bear through his left elbow on a platform walker. Keep his left wrist splint and dressings in place until he returns to orthopedic surgery clinic. -May discharge when stable from a medical perspective. Follow-up in orthopedic surgery clinic with Dr. Medina in 10 to 14 days from surgery. Please call [facility] at [phone] to make an appointment. Admission and Anticipated Discharge Date Admission Date: September 26, 2021 Subjective POD 3 Pt sitting up in bed. Awake, alert. No complaints. Comfortable. Pain controlled at rest. Physical Exam Physical Exam: Left hip Silveron C/D/I. Thigh with mild swelling but soft, NT. Calves soft, NT. NV intact. Toes mobile. Hip located. LUE splint C/D/I. Fingers with swelling. Moving fingers well. Sensation intact. Cap refill < 2 seconds. Results & Data ([facility]) Vital Signs (Past 12 Hours) Vital Signs Temp Pulse Pulse Resp BP Pulse Ox 10/01/21 11:27 36.9 C 84 72 17 139/66 93 10/01/21 07:35 36.9 C 72 17 139/66 93
--- NOTE | 2021-10-06 17:52 | Coding Query ---
To promote full compliance with coding requirements relating to patient care, physician participation is requested in all cases of configuration management advisor uncertainty. Please assist us with the question(s) below: Coding Question(s): It was noted throughout the record that the patient has/is suspected to have osteoporosis. According to coding guidelines "a code for osteoporotic fracture, and not a traumatic fracture, should be used for any patient with known osteoporosis who suffers a fracture, even if the patient had a minor fall or trauma, if that fall or trauma would not usually break a normal, healthy bone." Please indicate below the type of fracture: 1. Physician's Response(s): ( ) Likely Osteoporotic fracture of Left Femoral Neck ( ) Likely Traumatic fracture of Left Femoral Neck ( ) Other, please specify ( ) Unable to be determined 2. Physician's Response(s): ( ) Likely Osteoporotic fracture of Left Distal Radius ( ) Likely Traumatic fracture of Left Distal Radius ( ) Other, please specify ( x ) Unable to be determined-not proven MTDD
[2021-10-07] MEDS ORDERED: CYANOCOBALAMIN (B-12) 500 MCG TABLET PO SCH (09:00)
== END 2021-10-01 13:34 | DRG 522 ==
LOC: ED 14:17 → SUATTDRO 17:16 → EDINP 17:16 → 3N 22:30